=== PATIENT | female | born 1935 | race Caucasian/White ===

== ENCOUNTER 2020-03-23 14:14 | Outpatient (CLI) | payer MEDICARE, BC, SELFPAY ==
--- NOTE | 2020-03-23 15:11 | ECG_ITS ---
Measurements Intervals [place] Rate: 66 P: 48 OK: 155 QRS: -48 QRSD: 130 T: 29 QT: 405 QTc: 425 Interpretive Statements SINUS RHYTHM RIGHT BUNDLE BRANCH BLOCK LEFT ANTERIOR FASCICULAR BLOCK ABNORMAL ECG Electronically Signed On 03-23-2020 15:51:54 CDT by Rhett Schuler D.O.
[2020-03-23 15:44] LABS: Basophils Absolute Auto 0.1 K/mm3 (0.0-0.1); Basophils Percent Auto 0.7 % (0.2-1.2); Eosinophils Absolute Auto 0.1 K/mm3 (0-0.3); Eosinophils Percent Auto 1.3 % (0-4.4); Hematocrit 38.7 % (37.0-47.0); Hemoglobin 13.1 g/dL (12.0-15.0); Immature Granulocyte Absolute 0.02 K/mm3 (0.00-0.031); Immature Granulocyte Percent A 0.2 % (0-0.5); Lymphocytes Absolute Auto 2.23 K/mm3 (0.9-3.2); Lymphocytes Percent Auto 25.6 % (18.3-44.2); Mean Corpuscular HGB Conc 33.9 g/dl (32-36); Mean Corpuscular Hemoglobin 29.2 pg (26-34); Mean Corpuscular Volume 86.2 fl (80-100); Mean Platelet Volume 9.7 fl (7.4-10.4); Monocytes Absolute Auto 0.4 K/mm3 (0.1-0.6); Monocytes Percent Auto 4.7 % (2.6-8.5); Neutrophils Absolute Auto 5.9 K/mm3 (1.3-6.7); Neutrophils Percent Auto 67.5 % (45.5-73.1); Platelet Count Result 226 k/mm3 (150-375); Red Blood Count 4.49 M/mm3 (4.2-5.4); White Blood Count 8.7 K/mm3 (4.5-10.0)
[2020-03-23 15:56] LABS: Blood Urea Nitrogen 18 mg/dL (7-17); Calcium 9.3 mg/dL (8.4-10.2); Carbon Dioxide 26 mmol/L (22-30); Chloride 103 mmol/L (98-107); Estimated Glomerular Filt Rate > 60; Glucose 134 mg/dL (65-105); Potassium 4.1 mmol/L (3.4-5.0); Sodium 136 mmol/L (137-145)
== END 2020-03-23 14:15 | disposition home or self-care (01) ==
PROVIDERS: Anesthesiology; PCP Family Medicine; Visit Provider Orthopaedic Surgery
DX: M17.12 Unilateral primary osteoarthritis, left knee (principal); E11.9 Type 2 diabetes mellitus without complications; I45.10 Unspecified right bundle-branch block; I44.4 Left anterior fascicular block
CPT/HCPCS: 36415; 80048; 85025; 87081; 93005

== ENCOUNTER 2020-04-05 07:13 | Outpatient (CLI) | payer MEDICARE, BC, SELFPAY ==
--- NOTE | ~2020-04-05 | NM_ITS ---
EXAMINATION: NM carmelo stress w perfusion DATE: 04/05/2020 10:42 INDICATION: Dyspnea. TECHNIQUE: Rest images were obtained following intravenous administration of 10.7 mCi Tc99m tetrofosm in (Myoview). The patient was infused intravenously with Lexiscan (Regadenoson). Then, 31.77 mCi Tc99 m tetrofosmin (Myoview) was administered intravenously, and stress images were obtained. Data was rec onstructed into short axis and horizontal and vertical long axis SPECT images. Gated SPECT images wer e also obtained. COMPARISON: None. FINDINGS: There is a mild to moderate largely reversible perfusion defect involving the apical anteri or, apical lateral, mid anterolateral and mid inferolateral segments consistent with ischemia. Small mild nonreversible infarct at the mid inferolateral segment. There is normal left ventricular chamber size, wall motion and ejection fraction. Left ventricular ejection fraction measures >70%. IMPRESSION: 1. Small mild infarct in the mid inferolateral segment with larger region of reversible ischemia pred ominantly more anterior in the circumflex coronary artery vascular distribution. 2. Left ventricular ejection fraction measuring >70%. Reviewed, dictated and finalized at location A. IMPRESSION: 1. Small mild infarct in the mid inferolateral segment with larger region of re versible ischemia predominantly more anterior in the circumflex coronary artery vascular distribution. 2. Left ventricular ejection fraction measuring >70%.
--- NOTE | 2020-04-05 07:17 | ECHO_ITS ---
Patient Info Name: Sunitha Dooley Age: 84 years : 1935 Gender: Female Ht: 59 in Wt: 191 lbs BSA: 1.95 m2 HR: 71 bpm BP: 165 / 70 mmHg Technical Quality: Good Exam Date: 04/05/2020 7:40 AM Exam Location: [facility] Patient Status: Outpatient Admit Date: 04/05/2020 Staff Ordering Physician: Rhett Schuler DO Ventilating Equipment Installer: Jose Limon RDCS, RT Attending Provider: Rhett Schuler DO Referring Physician: Ganga REARDON; Exam Type: CA echo doppler color flow Study Info Indications R01.1 - Cardiac murmur, unspecified Complete two-dimensional, color flow and Doppler transthoracic echocardiogram is performed. Summary 1. Left ventricular chamber dimension is normal. 2. Left ventricular systolic function is normal, estimated at 65-70%. 3. There is moderately increased left ventricular wall thickness. 4. The left ventricular diastolic function is grade I diastolic dysfunction. 5. E/e' 15 is elevated. 6. Global longitudinal strain is mildly abnormal at -16.2%. 7. Left atrial chamber dimension is mildly enlarged. 8. There is moderate aortic valve sclerosis. 9. There is mild to moderate aortic valve stenosis with a peak velocity of 222 cm/s, mean gradient of 11 mmHg, and aortic valve area of 1.5 cm2. 10. There is mild aortic valve regurgitation. 11. The mitral valve has mildly calcified annulus. 12. There is trace mitral valve regurgitation. Left Ventricle E/e' 15 is elevated. Global longitudinal strain is mildly abnormal at -16.2%. Left ventricular chamber dimension is normal. Left ventricular systolic function is normal, estimated at 65-70%. There is moderately increased left ventricular wall thickness. The left ventricular diastolic function is grade I diastolic dysfunction. Right Ventricle Right ventricular chamber dimension is normal. Right ventricular systolic function is normal. Left Atria Left atrial chamber dimension is mildly enlarged. Right Atria Right atrial chamber dimension is normal. Aortic Valve The aortic valve is trileaflet. There is moderate aortic valve sclerosis. There is mild to moderate aortic valve stenosis with a peak velocity of 222 cm/s, mean gradient of 11 mmHg, and aortic valve area of 1.5 cm2. There is mild aortic valve regurgitation. Pulmonic Valve There is no pulmonic regurgitation. Mitral Valve The mitral valve has mildly calcified annulus. There is no mitral valve stenosis. There is trace mitral valve regurgitation. Tricuspid Valve There is no tricuspid valve regurgitation. Pericardium/Pleural There is no pericardial effusion. Inferior Vena Cava Normal inferior vena cava with >50% collapse upon inspiration consistent with normal right atrial pressure, 5 mmHg. Aorta The aortic root size at the sinus of Valsalva is normal. Left Ventricular Outflow Tract Name Value Normal LVOT 2D LVOT Diameter 2.0 cm LVOT Doppler LVOT Peak Gradient 4 mmHg LVOT Mean Gradient 2 mmHg LVOT VTI 24 cm LVOT VTI/AV VTI Ratio 0.5 LVO
--- NOTE | 2020-04-05 07:17 | EST_ITS ---
Patient Info Name: Sunitha Dooley Age: 84 years : 1935 Gender: Female Ht: 59 in Wt: 180 lbs BSA: 1.89 m2 Exam Date: 04/05/2020 8:44 AM Exam Location: [facility] Stress Patient Status: Outpatient Admit Date: 04/05/2020 Staff Ordering Physician: Rhett Schuler DO Attending Provider: Rhett Schuler DO Exercise Technologist: Jose Limon RDCS, RT Exercise Physician: Rhett Schuler DO Exam Type: CA stress carmeol w NM Study Info A regadenoson stress test was performed. Summary 1. 1. Negative lexiscan stress test for ischemic ST changes by ECG criteria. 2. 2. Baseline hypertension. 3. 3. Nuclear scan to follow and will be reported separately. Please correlate with it. 4. 4. Patient informed of the above results. Protocol: Lexiscan Stress ECG Details Stage: REST Duration (min): 3 min : 41 sec HR (bpm): 69 SBP (mmHg): 167 DBP (mmHg): 54 Stage: REST Duration (min): 4 min : 43 sec HR (bpm): 69 SBP (mmHg): 167 DBP (mmHg): 54 Stage: STAGE 1 Duration (min): 1 min : 0 sec HR (bpm): 79 SBP (mmHg): 160 DBP (mmHg): 48 Stage: RECOVERY Duration (min): 1 min : 0 sec HR (bpm): 82 SBP (mmHg): 160 DBP (mmHg): 48 Stage: RECOVERY Duration (min): 2 min : 0 sec HR (bpm): 83 SBP (mmHg): 160 DBP (mmHg): 48 Stage: RECOVERY Duration (min): 3 min : 0 sec HR (bpm): --- SBP (mmHg): 160 DBP (mmHg): 48 Stage: RECOVERY Duration (min): 4 min : 0 sec HR (bpm): --- SBP (mmHg): 160 DBP (mmHg): 48 Stage: RECOVERY Duration (min): 4 min : 9 sec HR (bpm): --- SBP (mmHg): 160 DBP (mmHg): 48 Rest HR: 69 bpm Peak HR: 85 bpm Rest Sys BP: 167 mmHg Peak Sys BP: 160 mmHg Max Pred HR: 137 bpm % Max Pred HR: 62 % Target HR: 116 bpm Max RPP: 13,600 bpm*mmHg Termination Reason: Completed protocol Cardiac Symptoms: Stomach pain Total Time: 1 min : 0 sec Rest Pettit BP: 54 mmHg Peak Pettit BP: 48 mmHg Total Dose: 0.4 mg Resting ECG Sinus rhythm, RBBB, LAFB. Stress ECG No ST changes. Arrhythmias None. Report Signatures
== END 2020-04-05 07:14 | disposition home or self-care (01) ==
PROVIDERS: PCP Family Medicine; Visit Provider Internal Medicine Cardiovascular Disease
DX: R01.1 Cardiac murmur, unspecified (principal); I08.3 Combined rheumatic disorders of mitral, aortic and tricuspid valves; R06.00 Dyspnea, unspecified
CPT/HCPCS: 78452; 93017; 93306; A9502; J2785

== ENCOUNTER 2020-04-28 02:58 | Outpatient (CLI) | payer MEDICARE, BC, SELFPAY ==
[2020-04-29 13:48] LABS: SARS-CoV-2 RNA PCR Negative
== END 2020-04-28 02:59 | disposition home or self-care (01) ==
LOC: ANHCOVIDDT 02:59
PROVIDERS: PCP Family Medicine; Visit Provider Specialist
DX: Z01.812 Encounter for preprocedural laboratory examination (principal); Z11.59 Encounter for screening for other viral diseases
CPT/HCPCS: 87635; C9803; U0003

== ENCOUNTER 2020-05-01 05:22 | Day surgery (SDC) | payer MEDICARE, BC, SELFPAY ==
[2020-05-01] VITALS (18 sets, daily range): BP systolic 116–167; BP diastolic 53–98; PULSE 61–72; RESP 12–21; TEMP 36.1–36.5; O2SAT 94–99; BMI 37.8
--- NOTE | 2020-05-01 08:55 | SUR.PREOP ---
ARRIVES TO GAS APPLIANCE SERVICER 4 VIA WC FROM OP REGISTRATION W/ DAUGHTER SANJANA AT SIDE FOR SCHEDULED LHC W/ DR. BARRY. DENIES CP OR SOB ON ARRIVAL. STATES NEEDS CARDIAC CATH COMPLETED TO EVENTUALLY GET L. KNEE SURGERY. ORIENTED TO ROOM, PLAN OF CARE, PROCEDURE. QUESTIONS ANSWERED. VOICED UNDERSTANDING. IV STARTED, LABS SENT, VS OBTAINED, CONSENT SIGNED, SKIN PREPPED. WILL CONTINUE TO MONITOR.
[2020-05-01] MEDS: SODIUM CHLORIDE 0.9% IV 500 ML 100 ML IV CONT (09:30)
[2020-05-01 09:37] LABS: Basophils Absolute Auto 0.1 K/mm3 (0.0-0.1); Basophils Percent Auto 0.7 % (0.2-1.2); Eosinophils Absolute Auto 0.1 K/mm3 (0-0.3); Eosinophils Percent Auto 1.7 % (0-4.4); Hematocrit 38.1 % (37.0-47.0); Hemoglobin 12.8 g/dL (12.0-15.0); Immature Granulocyte Absolute 0.03 K/mm3 (0.00-0.031); Immature Granulocyte Percent A 0.4 % (0-0.5); Lymphocytes Absolute Auto 1.89 K/mm3 (0.9-3.2); Lymphocytes Percent Auto 22.7 % (18.3-44.2); Mean Corpuscular HGB Conc 33.6 g/dl (32-36); Mean Corpuscular Hemoglobin 29.5 pg (26-34); Mean Corpuscular Volume 87.8 fl (80-100); Mean Platelet Volume 10.1 fl (7.4-10.4); Monocytes Absolute Auto 0.5 K/mm3 (0.1-0.6); Monocytes Percent Auto 5.6 % (2.6-8.5); Neutrophils Absolute Auto 5.7 K/mm3 (1.3-6.7); Neutrophils Percent Auto 68.9 % (45.5-73.1); Platelet Count Result 226 k/mm3 (150-375); Red Blood Count 4.34 M/mm3 (4.2-5.4); Red Cell Distribution Width 12.1 % (11.5-14.5); White Blood Count 8.3 K/mm3 (4.5-10.0)
[2020-05-01 09:46] LABS: INR 0.9; Prothrombin Time 12.3 Seconds (11.1-14.7)
[2020-05-01 09:48] LABS: Anion Gap 6 mmol/L (8-16); Blood Urea Nitrogen 24 mg/dL (7-17); Carbon Dioxide 28 mmol/L (22-30); Chloride 104 mmol/L (98-107); Cholesterol 177 mg/dL (0-200); Estimated Glomerular Filt Rate > 60; Glucose 77 mg/dL (65-105); HDL Direct 62 mg/dL; Potassium 4.1 mmol/L (3.4-5.0); Sodium 138 mmol/L (137-145); Triglycerides 74 mg/dL (<150)
[2020-05-01 09:59] LABS: LDL Cholesterol Direct 97 mg/dL
--- NOTE | 2020-05-01 10:49 | WPDMODSED ---
Moderate Sedation Note-Pt Data Patient Data Diagnosis: Degenerative joint disease anticipating knee replacement abnormal stress test mild aortic valve stenosis Present Complaint: no complaints Procedure to be performed/Plan: left heart catheterization Allergies Allergy/AdvReac Type Severity Reaction Status Date / Time No Known Allergies Allergy Verified 04/14/20 15:06 Home Medications Medication Instructions Recorded Confirmed Type enalapril maleate 20 mg tablet 20 mg PO BID #180 tablet 10/15/19 04/14/20 Rx metformin 1,000 mg tablet 500 mg PO BID 10/15/19 04/14/20 History pen needle, diabetic 32 gauge x #100 each 01/06/20 04/14/20 Rx meclizine 25 mg tablet 25 mg PO Q8H PRN #90 tablet 01/13/20 04/14/20 Rx insulin glargine [Lantus Solostar 14 - 18 unit SUBCUT HS 03/23/20 04/14/20 History U-100 Insulin] multivitamin with minerals 1 tablet PO DAILY 03/23/20 04/14/20 History [Hair,Skin and Nails] mupirocin 2 % topical ointment 1 applic TOPICAL TID #15 gm 03/28/20 04/14/20 Rx sulfamethoxazole 800 1 tablet PO BID #10 tablet 03/28/20 04/14/20 Rx mg-trimethoprim 160 mg tablet amlodipine 10 mg tablet 10 mg PO DAILY #30 tablet 03/30/20 04/14/20 Rx aspirin 81 mg tablet,delayed 81 mg PO DAILY 04/14/20 04/14/20 History release meloxicam 15 mg tablet 15 mg PO DAILY #90 tablet 04/21/20 04/21/20 Rx temazepam 15 mg capsule 30 mg PO .qhs #60 cap 04/21/20 04/21/20 Rx Current Medications: Active Medications Sodium Chloride (Normal Saline Iv) 500 mls @ 100 mls/hr IV CONT .Q5H RICHARD Sedation/Anesthesia: No previous sedation/anesthesia problems (including family history). [facility] Social History Social History (Updated 03/28/20 @ 14:24 by Morena Hinkle) Smoking packs per day: 1 Smoking cigarettes per day: 20.0 Years smoked: 10 Smoking pack-years: 10.00 Smoking status: Former smoker Tobacco type: cigarettes Second hand tobacco smoke exposure: Yes Smoking end date: 09/22/79 Additional smoking assessment comments: DENIES ANY FORM OF TOBACCO USE Alcohol intake: never Substance use: never Substance use type: does not use Gender identity (if verbalized by the patient): Female Spiritual care concerns: No Mod Sed Physical Exam Physical Exam Pre Procedural Exam: Normal: Neck, Throat, Airway, Lungs, Heart Size, Heart Rate, Heart Rhythm and Neuro Exam and Variation: Appearance ( obese elderly white female) Hours since solid foods: 12 Hours since liquid intake: 12 Internal Medicine - PN: Obj Da Meds/Results Medications: Active Medications Generic Name Dose Route Start Last Admin Trade Name Freq PRN Reason Stop Dose Admin Sodium Chloride 500 mls @ 100 mls/hr 05/01/20 08:30 Normal Saline Iv IV CONT .Q5H RICHARD Labs CBC & Chem 7: 05/01/20 09:19 05/01/20 09:19 Labs: Laboratory Results - last 24 hr 05/01/20 05/01/20 05/01/20 09:19 09:19 09:19 WBC 8.3 RBC 4.34 Hgb 12.8 Hct 38.1 MCV 87.8 MCH 29.5 MCHC 33.6 RDW 12.1 Plt Count 226 MPV 10.1 Immature Gran % (Auto) 0.4 Neut % (Auto) 68.9 Lymph % (Auto) 22.7 [place] % (Auto) 5.6 Eos % (Auto) 1.7 Baso % (Auto) 0.7 Lymph # (Auto) 1.89 [place] # (Auto) 0.5 Eos # (Auto) 0.1 Baso # (Auto) 0.1 Abs Immat Gran (auto) 0.03 Absolute Neuts (auto) 5.7 Absolute Nucleated RBC 0.0 Nucleated RBC % 0.0 PT 12.3 INR 0.9 Sodium 138 Potassium 4.1 Chloride 104 Carbon Dioxide 28 Anion Gap 6 L BUN 24 H Creatinine 0.70 Estim Creat Clear Calc Not Reportable Estimated GFR > 60 Glucose 77 Calcium 9.0 Triglycerides Cholesterol LDL Cholesterol Direct HDL Direct 05/01/20 09:19 WBC RBC Hgb Hct MCV MCH MCHC RDW Plt Count MPV Immature Gran % (Auto) Neut % (Auto) Lymph % (Auto) [place] % (Auto) Eos % (Auto) Baso % (Auto) Lymph # (Auto) [place] # (Au
--- NOTE | 2020-05-01 11:14 | WPDCARDPROC ---
Cardiac Cath Procedure Note Date of procedure:: 05/01/20 Performing physician:: Gagandeep Duarte MD Indication:: Preop evaluation prior to noncardiac surgery degenerative joint disease Brief clinical history:: 84-year-old woman who is undergoing evaluation to assess her risk prior to knee replacement. Nuclear stress testing was reportedly abnormal prompting angiography to be recommended. The chart also indicates that she has mild aortic valve stenosis. Procedure Procedure performed:: Left heart catheterization with left ventriculography and coronary angiography. Sedation/Medication given:: Fentanyl 50 mg Versed 2 mg case start time 10:57 a.m. case end time 11:09 a.m. sedation provided by Pamela Hooker RN, trained observer Access site:: right femoral artery Estimated blood loss:: 15-20 cc Procedure note:: patient was brought to the cardiac catheterization lab in the postabsorptive state where the right femoral triangle was prepared in the usual fashion. Anesthesia was given with 1% lidocaine infiltrated locally. Using the modified Seldinger technique a 5 [place] sheath was placed into the femoral artery. After this left heart catheterization was carried out. A 5 [place] angled pigtail catheter was used to measure left-sided central to hemodynamics, pullback pressure across the aortic valve into inject the left ventriculogram in the are AO projection. After this the the pigtail catheter was withdrawn. Next a 5 [place] FL4 catheter was used to engage inject the left coronary artery in multiple projections. This was then withdrawn and then a 5 [place] JR4 catheter was used to engage inject the right coronary artery and a orthogonal projections. Following this the case was terminated and angiogram was done of the femoral artery through the sheath. It was then to determine the to remove the sheath with direct manual compression she taken to the holding area for sheath removal with no sign of any complication of this procedure and no evidence of a groin hematoma. Findings:: Hemodynamics: Central aortic pressure was 132 over 38 left ventricle 1 40/0 end-diastolic pressure of 10. There is minimal if any transvalvular aortic valve gradient about 8 mmHg as detailed above. the left ventricle is normal in size appears to be somewhat hypertrophied. The LV is hyperdynamic with near obliteration of the cavity in end systole. Ejection fraction is 80% or higher The left main coronary artery is widely patent the left anterior descending is a large caliber vessel extending down to and around the apex. The proximal segment of the LAD is heavily calcified but it is nicely patent the vessel proximally has no more than 20% Luminal stenosis. The circumflex is a moderate caliber vessel which appears to be codominant. The circumflex has minimal luminal irregularities but no flow-limiting lesions are seen. Right coronary artery is moderate to large caliber and also codominant. The right coronary artery has minimal ostial plaquing about 20-30% stenosis at most there is no flow-limiting disease in the RCA. Conclusion:: 1. Minimal plaquing in the proximal LAD and proximal RCA with no angiographically significant coronary disease as detailed above 2. hyperdynamic left ventricular systolic function Gagandeep Duarte MD [facility]
--- NOTE | 2020-05-01 17:35 | SUR.PHASEII ---
DISCHARGED HOME, OUT VIA W/ ALL PERSONAL BELONGINGS AND DISCHARGE PACKET, TO DAUGHTER'S WAITING CAR. VOICES NO C/O. NO DISTRESS NOTED. R. PEDAL PULSE STRONG. NO CHANGE IN R. GROIN SITE.
== END 2020-05-01 17:35 | disposition home or self-care (01) ==
PROVIDERS: PCP Family Medicine; Visit Provider Specialist
PROC: 4A023N7 Measurement of Cardiac Sampling and Pressure, Left Heart, Percutaneous Approach (ICD-10-PCS; CPT 93452; principal; 2020-05-01 10:00)
DX: Z01.810 Encounter for preprocedural cardiovascular examination (principal); I25.10 Atherosclerotic heart disease of native coronary artery without angina pectoris; R94.39 Abnormal result of other cardiovascular function study; M17.10 Unilateral primary osteoarthritis, unspecified knee; I35.0 Nonrheumatic aortic (valve) stenosis; E11.9 Type 2 diabetes mellitus without complications; I11.0 Hypertensive heart disease with heart failure; I50.30 Unspecified diastolic (congestive) heart failure; Z79.4 Long term (current) use of insulin; Z87.891 Personal history of nicotine dependence
CPT/HCPCS: 36415; 80048; 80061; 85025; 85610; 93458; C1887; C1894; J1644; J2250; J3010; J7040

== ENCOUNTER 2020-07-18 12:41 | Outpatient (CLI) | payer MEDICARE, BC, SELFPAY ==
[2020-07-18 13:24] LABS: Hematocrit 39.3 % (37.0-47.0)
[2020-07-18 13:36] LABS: Albumin Level 4.1 g/dL (3.5-5.1); Estimated Glomerular Filt Rate > 60; Glucose 202 mg/dL (65-105)
[2020-07-18 13:37] LABS: Hemoglobin A1C 6.5 % (<5.7)
== END 2020-07-18 12:42 | disposition home or self-care (01) ==
PROVIDERS: PCP Family Medicine; Visit Provider Orthopaedic Surgery
DX: M17.12 Unilateral primary osteoarthritis, left knee (principal); I10 Essential (primary) hypertension; E11.9 Type 2 diabetes mellitus without complications; E78.5 Hyperlipidemia, unspecified; I35.0 Nonrheumatic aortic (valve) stenosis; Z01.818 Encounter for other preprocedural examination
CPT/HCPCS: 36415; 82040; 82565; 82947; 83036; 85014; 85018

== ENCOUNTER 2020-07-24 14:12 | Outpatient (CLI) | payer MEDICARE, BC, SELFPAY ==
--- NOTE | ~2020-07-24 | US_ITS ---
EXAMINATION: US venous doppler [facility] DATE: 07/24/2020 14:44 INDICATION: Left lower limb swelling TECHNIQUE: Whitehead scale images without and with compression and Doppler images of the left lower extrem ity veins were obtained. COMPARISON: None FINDINGS: The left common femoral vein, profunda femoral vein, femoral vein, popliteal vein, peroneal trunk, posterior tibial veins, and greater saphenous vein are patent. IMPRESSION: 1. Patent left lower extremity veins. No evidence of deep venous thrombosis. Reviewed, dictated and finalized at location A. [employer]CH[employer]IC
== END 2020-07-24 14:13 | disposition home or self-care (01) ==
PROVIDERS: PCP Family Medicine; Visit Provider Family Medicine
DX: R60.0 Localized edema (principal)
CPT/HCPCS: 93971

== ENCOUNTER 2020-07-28 13:45 | Outpatient (CLI) | payer MEDICARE, BC, SELFPAY ==
[2020-07-28 15:27] LABS: Basophils Absolute Auto 0.1 K/mm3 (0.0-0.1); Basophils Percent Auto 0.6 % (0.2-1.2); Eosinophils Absolute Auto 0.2 K/mm3 (0-0.3); Eosinophils Percent Auto 1.8 % (0-4.4); Hemoglobin 13.4 g/dL (12.0-15.0); Immature Granulocyte Absolute 0.03 K/mm3 (0.00-0.031); Immature Granulocyte Percent A 0.3 % (0-0.5); Lymphocytes Absolute Auto 2.53 K/mm3 (0.9-3.2); Lymphocytes Percent Auto 26.4 % (18.3-44.2); Mean Corpuscular HGB Conc 33.5 g/dl (32-36); Mean Corpuscular Hemoglobin 29.7 pg (26-34); Mean Corpuscular Volume 88.7 fl (80-100); Mean Platelet Volume 9.8 fl (7.4-10.4); Monocytes Absolute Auto 0.5 K/mm3 (0.1-0.6); Monocytes Percent Auto 5.4 % (2.6-8.5); Neutrophils Absolute Auto 6.3 K/mm3 (1.3-6.7); Neutrophils Percent Auto 65.5 % (45.5-73.1); Platelet Count Result 270 k/mm3 (150-375); Red Blood Count 4.51 M/mm3 (4.2-5.4); White Blood Count 9.6 K/mm3 (4.5-10.0)
[2020-07-28 15:54] LABS: Urine Cotinine NEGATIVE
== END 2020-07-28 13:46 | disposition home or self-care (01) ==
LOC: ANHSURGERY 13:51
PROVIDERS: PCP Family Medicine; Visit Provider Orthopaedic Surgery
DX: M17.12 Unilateral primary osteoarthritis, left knee (principal); Z01.818 Encounter for other preprocedural examination
CPT/HCPCS: 80307; 85025; 87081

== ENCOUNTER → 2020-08-25 13:21 | Outpatient (CLI) | payer MEDICARE, SELFPAY ==
--- NOTE | ~2020-08-25 | MM_ITS ---
EXAMINATION: MM screening en BI w ludwig HISTORY: Screening mammogram TECHNIQUE: Craniocaudal and mediolateral oblique 3-D tomosynthesis images were obtained and synthetic 2-D images were generated. CAD analysis was submitted and interpreted. COMPARISON: 06/18/2019, 05/07/2018, 04/09/2017 bilateral digital screening mammogram examinations BREAST PARENCHYMAL COMPOSITION: There are scattered areas of fibroglandular density. FINDINGS: There is stable There is a stable circumscribed intramammary lymph node on the left, unchanged since 06/18/2019 as wel l as 04/09/2017. Postoperative change including volume loss, surgical clips and scarring of the right breast from previous partial mastectomy for breast malignancy in 2000 reportedly. There is no evidenc e of suspicious mass, calcification, or architectural distortion to suggest malignancy in either [address]. There has been no suspicious interval change. IMPRESSION: 1. No mammographic evidence of malignancy. 2. Recommend routine screening mammography in one year. BI-RADS Category 2: Benign finding(s). Reviewed, dictated and finalized at location A. [employer]
== END ==
PROVIDERS: PCP Family Medicine; Visit Provider Family Medicine
DX: Z12.31 Encounter for screening mammogram for malignant neoplasm of breast (principal)
CPT/HCPCS: 77063; 77067

== ENCOUNTER 2020-12-08 11:35 | Outpatient (CLI) | payer MEDICARE, BC, SELFPAY ==
[2020-12-08 13:29] LABS: Basophils Absolute Auto 0.1 K/mm3 (0.0-0.1); Basophils Percent Auto 0.6 % (0.2-1.2); Eosinophils Absolute Auto 0.1 K/mm3 (0-0.3); Eosinophils Percent Auto 1.1 % (0-4.4); Hematocrit 42.5 % (37.0-47.0); Hemoglobin 13.9 g/dL (12.0-15.0); Immature Granulocyte Absolute 0.04 K/mm3 (0.00-0.031); Immature Granulocyte Percent A 0.5 % (0-0.5); Lymphocytes Absolute Auto 1.99 K/mm3 (0.9-3.2); Lymphocytes Percent Auto 24.5 % (18.3-44.2); Mean Corpuscular HGB Conc 32.7 g/dl (32-36); Mean Corpuscular Hemoglobin 28.5 pg (26-34); Mean Corpuscular Volume 87.1 fl (80-100); Mean Platelet Volume 9.3 fl (7.4-10.4); Monocytes Absolute Auto 0.5 K/mm3 (0.1-0.6); Monocytes Percent Auto 5.9 % (2.6-8.5); Neutrophils Absolute Auto 5.5 K/mm3 (1.3-6.7); Neutrophils Percent Auto 67.4 % (45.5-73.1); Platelet Count Result 250 k/mm3 (150-375); Red Blood Count 4.88 M/mm3 (4.2-5.4); Red Cell Distribution Width 12.6 % (11.5-14.5); White Blood Count 8.1 K/mm3 (4.5-10.0)
[2020-12-08 13:43] LABS: Albumin Level 4.3 g/dL (3.5-5.1)
[2020-12-08 13:47] LABS: Anion Gap 6 mmol/L (8-16); Blood Urea Nitrogen 19 mg/dL (7-17); Calcium 9.4 mg/dL (8.4-10.2); Carbon Dioxide 32 mmol/L (22-30); Chloride 103 mmol/L (98-107); Estimated Glomerular Filt Rate > 60; Glucose 111 mg/dL (65-105); Sodium 141 mmol/L (137-145)
[2020-12-08 13:51] LABS: Urine Cotinine NEGATIVE
[2020-12-08 13:52] LABS: Hemoglobin A1C 6.3 % (<5.7)
== END 2020-12-08 11:36 | disposition home or self-care (01) ==
LOC: ANHSURGERY 11:43
PROVIDERS: Anesthesiology; PCP Family Medicine; Visit Provider Orthopaedic Surgery
DX: M17.12 Unilateral primary osteoarthritis, left knee (principal); E11.40 Type 2 diabetes mellitus with diabetic neuropathy, unspecified; Z01.818 Encounter for other preprocedural examination
CPT/HCPCS: 36415; 80048; 80307; 82040; 83036; 85025; 86850; 86900; 86901; 87081

== ENCOUNTER → 2020-12-16 01:38 | Outpatient (CLI) | payer MEDICARE, BC, SELFPAY ==
[2020-12-16 20:22] LABS: SARS-CoV-2 RNA PCR Negative
== END ==
PROVIDERS: PCP Family Medicine; Visit Provider Orthopaedic Surgery
DX: Z01.812 Encounter for preprocedural laboratory examination (principal); Z20.822 Contact with and (suspected) exposure to COVID-19
CPT/HCPCS: C9803; U0003; U0005

== ENCOUNTER 2020-12-19 10:49 | Inpatient (IN) | payer MEDICARE, BC, SELFPAY ==
[2020-03-23 14:27] VITALS: BMI 37.0
[2020-03-23 15:08] VITALS: BP 168/61; PULSE 77; RESP 18; TEMP 36.9; O2SAT 97
[2020-07-28 14:33] VITALS: BP 156/64; PULSE 78; RESP 20; TEMP 36.9; O2SAT 98; BMI 36.3
[2020-12-08 12:18] VITALS: BMI 35.1
[2020-12-08 12:31] VITALS: BP 199/80; PULSE 80; RESP 18; TEMP 36.4; O2SAT 97
--- NOTE | 2020-12-18 10:32 | WPDANESEPPF ---
Anes - Initial Pre Proc Eval Procedure: Operation Date: 12/19/20 07:30 Proposed Procedures p Left Total Knee Arthroplasty - Nathanael Abel MD Date/Time: 12/18/20 10:32 Surgeon: Nathanael Abel MD Pre Op Diagnosis: Primary OA left knee Patient Data Age: 85 Gender: F Height: 1.51 m Weight: 80.2 kg Last Vital Signs Temp 36.4 C 12/08/20 12:31 Pulse 80 12/08/20 12:31 Resp 18 12/08/20 12:31 BP 199/80 H 12/08/20 12:31 Pulse Ox 97 12/08/20 12:31 Allergies Allergy/AdvReac Type Severity Reaction Status Date / Time adhesive tape AdvReac Mild Rash Verified 12/19/20 06:28 Home Medications Medication Instructions Recorded Confirmed Type metformin 1,000 mg tablet 500 mg PO HS 10/15/19 12/19/20 History pen needle, diabetic 32 gauge x #100 each 01/06/20 11/20/20 Rx meclizine 25 mg tablet 25 mg PO Q8H PRN #90 tablet 01/13/20 12/19/20 Rx multivitamin with minerals 1 tablet PO DAILY 03/23/20 12/19/20 History [Hair,Skin and Nails] pravastatin 10 mg tablet 10 mg PO DAILY #30 tablet 05/08/20 12/19/20 Rx meloxicam 15 mg tablet 15 mg PO DAILY #90 tablet 06/16/20 12/19/20 Rx temazepam [Restoril] 15 mg PO .qhs 07/28/20 12/19/20 History insulin glargine 100 unit/mL (3 14 - 18 unit SUBCUT HS #15 ml 10/23/20 12/19/20 Rx mL) subcutaneous pen enalapril maleate 20 mg tablet 20 mg PO BID #180 tablet 10/29/20 12/19/20 Rx ECG: sr, rbbb, lafb Other Studies: 05/01/[address] Duarte: Prox LAD 20% and RCA ostial 20-30% stenosis. 04/05/20 Lexiscan myoview: Abnormal with small inferolateral infarct and larger reversible ischemia in LAD and LCx distribution. 04/05/20 Echo: EF 65-70%, mod LVH, grade I diastolic dysfunction (E/e' 15), mild LAE, mild-mod (MANE 1.5 cm2), mild AI, mild MAC, trace MR. 03/23/20 EKG: Sinus rhythm, RBBB, LAFB. Per Dr Schuler note 11/20/20: May proceed to noncardiac surgery which is left knee surgery without further cardiac workup. Patient hx anesthesia problems: none Family hx anesthesia problems: none PMFSH Past Medical History Medical History (Updated 12/18/20 @ 10:34 by Jori Roque MD) Aortic stenosis Arthritis Benign essential HTN Breast CA CAD (coronary artery disease) DM neuropathy, type II diabetes mellitus History of breast cancer Mixed hyperlipidemia OAB (overactive bladder) Obesity Primary osteoarthritis of left knee RBBB (right bundle branch block with left anterior fascicular block) Surgical History Surgical History History of arthroplasty of right shoulder (~01/08/20) History of bladder surgery Family History Family History Other Diabetes mellitus Family history of arthritis Family history of congenital heart disease Family history of malignant neoplasm Family history of type 2 diabetes mellitus Hypertension Social History Social History (Updated 07/24/20 @ 13:26 by Nikkie Beth) Social History: Smoking packs per day: 1 Smoking cigarettes per day: 20.0 Years smoked: 10 Smoking pack-years: 10.00 Smoking status: Former smoker Tobacco type: cigarettes 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) Smoking end date: 03/22/80 Additional smoking assessment comments: DENIES ANY FORM OF TOBACCO USE Alcohol intake: former Alcohol use details: DRANK SOCIALLY IN PAST Substance use: never Substance use type: does not use Living arrangements: with family Additional living arrangements comments: SON LIVES WITH PATIENT Gender identity (if verbalized by the patient): Female Spiritual care concerns: No Anes - Eval Final PreProcedure Day of Procedure 12/18/20 10:32 Patient weight: obese Heart: regular rate and rhythm Lungs: clear to auscultation and normal air movement Airway: Mallampati scale class II Neurological: alert and oriented Last oral
[2020-12-19] VITALS (14 sets, daily range): BP systolic 112–200; BP diastolic 32–83; PULSE 74–80; RESP 12–20; TEMP 36.2–36.6; O2SAT 92–100
--- NOTE | ~2020-12-19 | XR_ITS ---
EXAMINATION: XR knee LT 2V DATE: 12/19/2020 09:47 INDICATION: Postoperative evaluation following left total knee arthroplasty. TECHNIQUE: Anteroposterior and lateral views of the left knee were obtained. COMPARISON: None. FINDINGS: Left total knee arthroplasty with patellar resurfacing and with lucent patellar and tibial components which appears well seated and in near anatomic alignment. No fractures identified. Expected postope rative subcutaneous and intra-articular gas. IMPRESSION: 1. Left total knee arthroplasty, negative for postoperative purposes. Reviewed, dictated and finalized at location A.
[2020-12-19] MEDS: ACETAMINOPHEN 500 MG TABLET 1000 MG PO (06:41)
[2020-12-19] MEDS: LACTATED RINGERS 1,000 ML 30 ML IV CONT ×2 (06:45→09:36)
--- NOTE | 2020-12-19 06:53 | WPDHPUPDATE1 ---
History and Physical Update Update Date/Time: 12/19/20 06:53 History and Physical has been reviewed, including an updated exam of the patient. There are NO changes in the patient's condition. Risks, benefits, and alternatives have been discussed and questions answered. Patient agrees to proceed with procedure.
[2020-12-19 06:55] LABS: Glucose Point of Care 156 (65-105)
[2020-12-19] MEDS: TRANEXAMIC ACID 1,000MG/ISO100 1,000 MG/100 ML BAG 200 MG IVPB (06:57)
--- NOTE | 2020-12-19 06:57 | WPDANESPNB ---
Anes - Peripheral Nerve Block Date/Time: 12/19/20 06:57 I have discussed with the patient/family/POA the placement of a peripheral nerve block for post-operative pain management, including associated risks, benefits, complications, and side effects. Alternative methods of post-operative analgesia were detailed. Questions were solicited and answers provided to the satisfaction of the patient/family/POA. Time-Out: A pre-procedural Time-Out was completed immediately before starting the procedure and confirmed: Patient Identification, Site, Procedure, Patient Position and the Availability of Requisite Equipment. Clinical Indications: Acute post-operative pain management requested by the operative surgeon. Nerve Block Insertion Note Anes-nerve block: adductor canal left Patient position: supine Skin prep: chlorhexidine Needle: 22 gauge, stimulating, insulated echogenic needle. Needle length: 80 mm Technique: ultrasound Technique comment: in plane Injectate: bupivacaine 0.5% with epi 5 mcg/ml (30cc) Observations: tolerated well Complications: none Procedure start time:: 725 Procedure end time:: 730
[2020-12-19] MEDS: ceFAZolin 2 GM/D5W 50 ML 2 GM/50 ML BAG IVPB (07:30)
--- NOTE | 2020-12-19 09:38 | PM.PROC ---
Procedure Note - Detailed Date of procedure: 12/19/20 Pre-op diagnosis: Primary OA left knee Post-op diagnosis: same Procedure performed: Total knee arthroplasty, left Description of procedure: Bone quality was poor. No significant releases were required. The all-polyethylene tibia fit very nicely. Implants: Gracie Triathlon size 3 cemented femur, size 4 CS cemented all polyethylene tibia 11mm, 35mm asymmetric cemented polyethylene patellar component. Anesthesia: GETA and regional (subsartorial nerve block) Surgeon: Nathanael Abel MD Complex Care Nurse Practitioner: Gabriela Prutit PA-C Estimated blood loss (mL): 200 Drains: No Complications: None Condition: stable Disposition: PACU Findings: Physician lead dental assistant, Gabriela Pruitt PA-C, required for surgery; including patient positioning, draping, tissue retraction, maintaining instrument position, cement removal, wound closure, and dressing placement. OPERATIVE DETAILS: The patient was given a nerve block preoperatively, and then brought to the operating room. A general anesthetic was administered. The leg was prepped and draped in the usual sterile fashion. The limb was elevated and the tourniquet inflated to 300 mmHg during initial exposure, and cementation. A longitudinal incision was created along the medial border of the patella and patellar tendon, and a high mid-vastus approach to the knee was performed. No medial release was taken. The knee was then flexed. The osteophytes were carefully removed. The intramedullary guide was placed in the femoral canal. The distal femoral resection was then taken with the oscillating saw. The collateral ligaments were carefully protected. The tibia was carefully exposed. The jig was applied, and the proximal tibia was resected according to preoperative plan. The pain really anesthetic mixture was injected into the periarticular tissues. The knee was balanced in extension, and appropriate releases were taken where needed. The anterior cruciate ligament and meniscal remnants were removed. The posterior cruciate ligament was preserved. The patella was measured. Patellar resection was carried out with the oscillating saw. The lug holes drilled. The femur was sized and rotation assessed using a combination of gap balancing, posterior referencing, and the AP axis. The 4 in 1 cutting block was used to finish the femoral cuts after equal gaps were assured. The lug holes were drilled. The osteophytes were carefully removed from the back of the knee. The knee was copiously irrigated with antibiotic solution periodically throughout the procedure. The spacer block was used to confirm equal flexion and extension gaps. Further releases were performed as needed. The tibia was sized and broached. The bony surfaces were prepared for cementing with pulsatile lavage. The real tibial, femoral, and patellar components were cemented into position. Excess cement was carefully removed. Patellar tracking was carefully assessed. No additional releases were required. The wound was closed with #1 Vicryl suture, #2 Quill suture, 1-Almfzp-tfe suture, and 2-0 Strata-fix suture followed by Steri-Strips. A sterile bulky dressing was applied. Meticulous hemostasis was maintained throughout the procedure. There were no complications. The patient was extubated and brought to the recovery room in stable condition after the application of sterile dressing with Marshall bandage.
--- NOTE | 2020-12-19 10:07 | SUR.PHASEI ---
PT AWAKE AND ALERT. RESTING QUIETLY. STATES NUMBNESS AND HEAVINESS TO LT KNEE. SENSATION TO FOOT AND MOVEMENT TO FOOT.
--- NOTE | 2020-12-19 10:26 | SUR.PHASEI ---
PT AWAKE AND ALERT. DENIES PAIN. EATING A FEW ICE CHIPS
--- NOTE | 2020-12-19 11:00 | ADMGEN ---
This patient, Sunitha Dooley, was admitted to Medical Room 246-. Patient/family oriented to hospital policies and general routines including ID bracelet, bed and alarms, visiting hours, pain management, procedures, bathroom and other care routines, personal items, smoking policy, room service/diet, and visiting hours. Information on how to activate the Rapid Response Team has been discussed. Patient/Family are encouraged to report perceived risks to care and to ask questions if they do not understand what they are told or what they should do.
[2020-12-19 11:01] LABS: Glucose Point of Care 183 (65-105)
--- NOTE | 2020-12-19 11:17 | PM.IMCN ---
Assessment and Plan Assessment and plan (1) Primary osteoarthritis of left knee: Code(s): M17.12 - Unilateral primary osteoarthritis, left knee Status: Acute Assessment and Plan: a status post total left knee arthroplasty PT OT supportive care DVT prophylaxis follow orthopedic surgery recommendations (2) RBBB (right bundle branch block with left anterior fascicular block): Code(s): I45.2 - Bifascicular block Status: Acute Assessment and Plan: stable continue to monitor (3) Aortic stenosis: Code(s): I35.0 - Nonrheumatic aortic (valve) stenosis Status: Acute Assessment and Plan: stable continue to monitor (4) CAD (coronary artery disease): Code(s): I25.10 - Atherosclerotic heart disease of [place] coronary artery without angina pectoris Status: Acute Assessment and Plan: stable continue to monitor (5) Murmur: Code(s): R01.1 - Cardiac murmur, unspecified Status: Acute Assessment and Plan: stable continue to monitor (6) Mitral regurgitation and aortic stenosis: Code(s): I08.0 - Rheumatic disorders of both mitral and aortic valves Status: Acute Assessment and Plan: stable continue to monitor (7) Mixed hyperlipidemia: Code(s): E78.2 - Mixed hyperlipidemia Status: Acute Assessment and Plan: continue statin (8) Benign essential HTN: Code(s): I10 - Essential (primary) hypertension Status: Acute Assessment and Plan: resume home meds (9) DM neuropathy, type II diabetes mellitus: Code(s): E11.40 - Type 2 diabetes mellitus with diabetic neuropathy, unspecified Status: Acute Assessment and Plan: holding meds continue insulin Lantus insulin and sliding scale as needed Accu-Cheks AC and HS 1800 calorie restricted diet holding metformin HPI Data of Consult Consult date: 12/19/20 Requesting Physician: Nathanael Abel MD Primary Care Provider: Alanna Kaufman MD Consult Narrative Reason for consult: medical management Narrative: Sunitha Dooley is a 85 year old female who is status post left knee total arthroplasty patient has past medical history significant for DJD, hypertension, type 2 diabetes mellitus, vertigo. I am seeing this patient upon request consult by orthopedic surgery for medical management at this time patient denies any issues she has being in her usual state of health prior and up until her surgery. she denies any shortness of breath ,cough or sputum production, no chest pain ,orthopnea no PND no syncope or near syncope her sugars have been up and down according to her, no fevers no rigors or chills no palpitation, no leg swelling. Review of Systems Review of Systems: Narrative: patient is status post left total knee arthroplasty Constitutional: Comments: no chills no fevers no fatigue no generalized malaise no weakness Eyes: Comments: no changes in her vision ENT: Comments: no dizziness, no nasal congestion or discharge no trouble swallowing. Cardiovascular: Comments: no chest pain no PND no orthopnea Respiratory: Comments: no shortness of breath no cough no sputum production Gastrointestinal: Comments: no nausea no vomiting no abdominal pain no diarrhea Genitourinary: Comments: no pain or burning with urination Musculoskeletal: Comments: she is status post left total knee arthroplasty Neurologic: Comments: no sensorimotor deficit Endocrine: Comments: my sugars have been up and down [facility] Past Medical History Medical History (Updated 12/18/20 @ 10:34 by Jori Roque MD) Aortic stenosis Arthritis Benign essential HTN Breast CA CAD (coronary artery disease) DM neuropathy, type II diabetes mellitus History of breast cancer Mixed hyperlipidemia OAB (overactive bladder) Obesity Primary osteoarthritis of left knee RBBB (right bundle branch block with left anterior
[2020-12-19 11:55] LABS: Basophils Absolute Auto 0.1 K/mm3 (0.0-0.1); Basophils Percent Auto 0.4 % (0.2-1.2); Eosinophils Percent Auto 0.2 % (0-4.4); Hematocrit 38.6 % (37.0-47.0); Hemoglobin 12.7 g/dL (12.0-15.0); Immature Granulocyte Absolute 0.08 K/mm3 (0.00-0.031); Immature Granulocyte Percent A 0.6 % (0-0.5); Lymphocytes Absolute Auto 0.91 K/mm3 (0.9-3.2); Lymphocytes Percent Auto 7.4 % (18.3-44.2); Mean Corpuscular HGB Conc 32.9 g/dl (32-36); Mean Corpuscular Volume 88.1 fl (80-100); Monocytes Absolute Auto 0.4 K/mm3 (0.1-0.6); Monocytes Percent Auto 3.5 % (2.6-8.5); Neutrophils Absolute Auto 10.8 K/mm3 (1.3-6.7); Neutrophils Percent Auto 87.9 % (45.5-73.1); Platelet Count Result 226 k/mm3 (150-375); Red Blood Count 4.38 M/mm3 (4.2-5.4); Red Cell Distribution Width 12.3 % (11.5-14.5); White Blood Count 12.3 K/mm3 (4.5-10.0)
[2020-12-19 12:04] LABS: Anion Gap 4 mmol/L (8-16); Blood Urea Nitrogen 17 mg/dL (7-17); Calcium 8.4 mg/dL (8.4-10.2); Carbon Dioxide 29 mmol/L (22-30); Chloride 104 mmol/L (98-107); Estimated Glomerular Filt Rate > 60; Glucose 180 mg/dL (65-105); Potassium 4.6 mmol/L (3.4-5.0); Sodium 137 mmol/L (137-145)
[2020-12-19 12:08] LABS: Glucose Point of Care 168 (65-105)
[2020-12-19 17:15] LABS: Glucose Point of Care 233 (65-105)
[2020-12-19] MEDS: ENALAPRIL MALEATE 10 MG TABLET 20 MG PO (17:15)
[2020-12-19] MEDS: ASPIRIN 81 MG ENTERIC TABLET PO (17:15)
[2020-12-19] MEDS: DOCUSATE SODIUM 100 MG CAPSULE PO (17:15)
[2020-12-19] MEDS: metFORMIN HCL 500 MG TABLET PO (20:54)
[2020-12-19] MEDS: TEMAZEPAM (*CRX) 15 MG CAPSULE PO (20:54)
[2020-12-19] MEDS: INSULIN GLARGINE (*BKC) 100 UNITS/ML 14 UNITS SUB-Q (20:55)
[2020-12-19 21:03] LABS: Glucose Point of Care 241 (65-105)
[2020-12-19] MEDS: oxyCODONE HCL (*CRX) 5 MG TAB IR PO (23:08)
[2020-12-20] VITALS (9 sets, daily range): BP systolic 145–168; BP diastolic 43–68; PULSE 81–110; RESP 16–20; TEMP 35.9–36.8; O2SAT 90–100
[2020-12-20] MEDS: oxyCODONE HCL (*CRX) 5 MG TAB IR PO ×2 (05:48→10:49)
[2020-12-20 05:59] LABS: Basophils Percent Auto 0.4 % (0.2-1.2); Eosinophils Absolute Auto 0.3 K/mm3 (0-0.3); Eosinophils Percent Auto 2.8 % (0-4.4); Hematocrit 35.4 % (37.0-47.0); Hemoglobin 11.6 g/dL (12.0-15.0); Immature Granulocyte Absolute 0.04 K/mm3 (0.00-0.031); Immature Granulocyte Percent A 0.4 % (0-0.5); Lymphocytes Absolute Auto 1.12 K/mm3 (0.9-3.2); Lymphocytes Percent Auto 11.5 % (18.3-44.2); Mean Corpuscular HGB Conc 32.8 g/dl (32-36); Mean Corpuscular Hemoglobin 28.7 pg (26-34); Mean Corpuscular Volume 87.6 fl (80-100); Mean Platelet Volume 10.3 fl (7.4-10.4); Monocytes Absolute Auto 0.6 K/mm3 (0.1-0.6); Monocytes Percent Auto 5.6 % (2.6-8.5); Neutrophils Absolute Auto 7.8 K/mm3 (1.3-6.7); Neutrophils Percent Auto 79.3 % (45.5-73.1); Platelet Count Result 194 k/mm3 (150-375); Red Blood Count 4.04 M/mm3 (4.2-5.4); Red Cell Distribution Width 12.2 % (11.5-14.5); White Blood Count 9.8 K/mm3 (4.5-10.0)
[2020-12-20 06:17] LABS: Anion Gap 1 mmol/L (8-16); Blood Urea Nitrogen 17 mg/dL (7-17); Calcium 8.1 mg/dL (8.4-10.2); Carbon Dioxide 32 mmol/L (22-30); Chloride 102 mmol/L (98-107); Estimated Glomerular Filt Rate > 60; Glucose 153 mg/dL (65-105); Potassium 4.3 mmol/L (3.4-5.0); Sodium 135 mmol/L (137-145)
--- NOTE | 2020-12-20 08:18 | WPDANESPN ---
Anes - Prog Note Post-Op Date/Time: 12/20/20 08:18 Cardiovascular status: normal Respiratory status: normal Airway patency: baseline Mental status: baseline Post-Op hydration status: normal Vital Signs: Last Vital Signs Temp 35.9 C L 12/20/20 04:00 Pulse 81 12/20/20 04:00 Resp 16 12/20/20 04:00 BP 149/62 H 12/20/20 04:00 Pulse Ox 100 12/20/20 04:00 Pain Score (VAS): 6/10. Patient resting in bed at time of assessment. Patient states some relief with PRN pain meds. Student nurse at bedside. I/O: Intake & Output 12/19/20 12/20/20 12/20/20 23:59 07:59 15:59 Intake Total 490 300 Output Total 500 500 Balance -10 -200 Laboratory Tests 12/20/20 05:27 12/20/20 05:27 12/19/20 12/19/20 12/19/20 09:58 11:39 11:39 WBC 12.3 H RBC 4.38 Hgb 12.7 Hct 38.6 MCV 88.1 MCH 29.0 MCHC 32.9 RDW 12.3 Plt Count 226 MPV 10.0 Immature Gran % (Auto) 0.6 H Neut % (Auto) 87.9 H Lymph % (Auto) 7.4 L [place] % (Auto) 3.5 Eos % (Auto) 0.2 Baso % (Auto) 0.4 Lymph # (Auto) 0.91 [place] # (Auto) 0.4 Eos # (Auto) 0.0 Baso # (Auto) 0.1 Abs Immat Gran (auto) 0.08 H Absolute Neuts (auto) 10.8 H Absolute Nucleated RBC 0.0 Nucleated RBC % 0.0 Sodium 137 Potassium 4.6 Chloride 104 Carbon Dioxide 29 Anion Gap 4 L BUN 17 Creatinine 0.80 Estim Creat Clear Calc Not Reportable Estimated GFR > 60 Glucose 180 H POC Capillary Glucose 183 H Calcium 8.4 12/19/20 12/19/20 12/19/20 12:00 17:12 20:51 WBC RBC Hgb Hct MCV MCH MCHC RDW Plt Count MPV Immature Gran % (Auto) Neut % (Auto) Lymph % (Auto) [place] % (Auto) Eos % (Auto) Baso % (Auto) Lymph # (Auto) [place] # (Auto) Eos # (Auto) Baso # (Auto) Abs Immat Gran (auto) Absolute Neuts (auto) Absolute Nucleated RBC Nucleated RBC % Sodium Potassium Chloride Carbon Dioxide Anion Gap BUN Creatinine Estim Creat Clear Calc Estimated GFR Glucose POC Capillary Glucose 168 H 233 H 241 H Calcium 12/20/20 12/20/20 05:27 05:27 WBC 9.8 RBC 4.04 L Hgb 11.6 L Hct 35.4 L MCV 87.6 MCH 28.7 MCHC 32.8 RDW 12.2 Plt Count 194 MPV 10.3 Immature Gran % (Auto) 0.4 Neut % (Auto) 79.3 H Lymph % (Auto) 11.5 L [place] % (Auto) 5.6 Eos % (Auto) 2.8 Baso % (Auto) 0.4 Lymph # (Auto) 1.12 [place] # (Auto) 0.6 Eos # (Auto) 0.3 Baso # (Auto) 0.0 Abs Immat Gran (auto) 0.04 H Absolute Neuts (auto) 7.8 H Absolute Nucleated RBC 0.0 Nucleated RBC % 0.0 Sodium 135 L Potassium 4.3 Chloride 102 Carbon Dioxide 32 H Anion Gap 1 L BUN 17 Creatinine 0.80 Estim Creat Clear Calc Not Reportable Estimated GFR > 60 Glucose 153 H POC Capillary Glucose Calcium 8.1 L Post-procedural complaints: none Patient Feedback: Patient satisfied with anesthetic care.
[2020-12-20] MEDS: MELOXICAM 7.5 MG TABLET 15 MG PO (09:10)
[2020-12-20] MEDS: ENALAPRIL MALEATE 10 MG TABLET 20 MG PO ×2 (09:11→17:13)
[2020-12-20] MEDS: ASPIRIN 81 MG ENTERIC TABLET PO ×2 (09:11→17:13)
[2020-12-20] MEDS: DOCUSATE SODIUM 100 MG CAPSULE PO ×2 (09:11→17:13)
[2020-12-20] MEDS: THERAPEUTIC MULTIVITAMINS/MINERALS TAB (*BKC) 1 TABLET PO (09:12)
[2020-12-20] MEDS: PRAVASTATIN SODIUM 10 MG TABLET PO (09:12)
[2020-12-20 12:26] LABS: Glucose Point of Care 200 (65-105)
--- NOTE | 2020-12-20 12:31 | PM.PNORT ---
Progress Note: A&P Assessment and Plan (1) Status post total left knee replacement: Code(s): Z96.652 - Presence of left artificial knee joint <MARYANNE Mckeon - Last Filed: 12/20/20 12:49> Status: Acute <MARYANNE Mckeon - Last Filed: 12/20/20 12:49> Assessment and Plan: POD #1 Total Knee Arthroplasty Left Patient is having some trouble with pain control. Pain is manageable with pain medications. Patient states she is having worsening back pain. She did have back pain prior to surgery. She states that was better when sitting up. Patient is not yet had a bowel movement. Abdomen soft nontender to palpation. Physical therapy with patient at the time of visit. Patient on 2 L 02 nasal cannula at the time of my visit. Physical therapy stated that the patient's oxygen was 97%. I notified not nurse. Due to patient's age, pain control, and comorbidities I recommend the patient stay 1 more night. Likely discharge home tomorrow. <MARYANNE Mckeon - Last Filed: 12/20/20 12:49> Additional Plan Patient seen and examined. Agree with the above documentation. Questions answered. Okay to discharge today. <Nathanael Abel MD - Last Filed: 12/21/20 11:49> Subjective Subjective Date/Time Seen: 12/20/20 10:31 POD #1 Total Knee Arthroplasty Left Patient sitting up in chair. Patient is having a lot of pain in the left knee. Worse with PT. Manageable with pain medications. Patient states she had trouble sleeping last night. She has not had a BM. She does complain of back pain. She had back pain prior to surgery. Pain better with sitting in chair. No chest pain, SOB, abdominal pain. <MARYANNE Mckeon - Last Filed: 12/20/20 12:49> Review of Systems Review of Systems: All systems reviewed & are unremarkable except as noted in HPI and below <MARYANNE Mckeon - Last Filed: 12/20/20 12:49> Exam Extrem: Other: Pleasant 85-year-old female. Resting comfortably in chair. Patient on 2 L of O2 nasal cannula at the time of my visit. Abdomen soft and nontender to palpation. Wearing compression socks bilaterally. Dressing dry and intact. Small roverto sized area of dried bloody discharge on bandage. No limp. No instability. Mild swelling. No erythema. Range of motion limited due to pain. Calf nontender. Neurologic status intact. No varicosities. Distal pulses palpable. <MARYANNE Mckeon - Last Filed: 12/20/20 12:49> Objective Data Vital Signs Vital Signs: Vital Signs - 24 hr 12/19/20 12:45 12/19/20 16:34 12/19/20 20:00 Temperature 97.3 F L 97.5 F L 97.1 F L Pulse Rate 78 77 75 Respiratory Rate 16 16 18 Blood Pressure 134/51 L 150/54 H 144/48 H Pulse Oximetry 95 95 95 12/20/20 00:00 12/20/20 00:21 12/20/20 04:00 Temperature 96.9 F L 96.6 F L Pulse Rate 81 81 Respiratory Rate 16 16 Blood Pressure 145/43 H 149/62 H Pulse Oximetry 90 94 100 12/20/20 09:00 12/20/20 09:19 12/20/20 10:40 Temperature 98.0 F 98.2 F Pulse Rate 92 86 Respiratory Rate 20 20 Blood Pressure 150/48 H 168/54 H Pulse Oximetry 98 94 96 <MARYANNE Mckeon - Last Filed: 12/20/20 12:49> Intake/Output Intake/Output: Intake & Output 12/17/20 12/18/20 12/19/20 12/20/20 23:59 23:59 23:59 23:59 Intake Total 1130 350 Output Total 500 500 Balance 630 -150 <MARYANNE Mckeon - Last Filed: 12/20/20 12:49> Meds/Results Medications: Active Medications Generic Name Dose Route Start Last Admin Trade Name Freq PRN Reason Stop Dose Admin Aspirin 81 mg 12/19/20 17:00 12/20/20 09:11 Aspirin 81 Mg Enteric Tablet PO 81 mg BID RICHARD Administration Docusate Sodium 100 mg 12/19/20 17:00 12/20/20 09:11 Docusate Sodium 100 Mg Capsule PO 100 mg BID RICHARD Administration Enalapril Maleate 20 mg 12/19/20 17:00 12/20/20 09:11 Enalapril Maleate 10 Mg Tablet PO 20 mg BID RICHARD Administration Insulin Glargine 1
--- NOTE | 2020-12-20 14:54 | PC.NURSE ---
On 12/20/20, the student, [Susanna Mcdermott ], provided care and completed [employer] documentation on this patient. I have reviewed the student's documentation and agree with the findings.
--- NOTE | 2020-12-20 16:49 | PM.IMPN ---
Progress Note: A&P Assessment and Plan (1) Status post total left knee replacement: Code(s): Z96.652 - Presence of left artificial knee joint Status: Acute Assessment and Plan: Participating with PT OT in therapy session DVT prophylaxis Pain control Supportive care Incentive spirometry (2) Primary osteoarthritis of left knee: Code(s): M17.12 - Unilateral primary osteoarthritis, left knee Status: Acute Assessment and Plan: Is status post total left knee arthroplasty (3) RBBB (right bundle branch block with left anterior fascicular block): Code(s): I45.2 - Bifascicular block Status: Acute Assessment and Plan: Stable Continue to monitor (4) Aortic stenosis: Code(s): I35.0 - Nonrheumatic aortic (valve) stenosis Status: Acute Assessment and Plan: Stable Continue to monitor (5) CAD (coronary artery disease): Code(s): I25.10 - Atherosclerotic heart disease of [place] coronary artery without angina pectoris Status: Acute Assessment and Plan: Stable Continue enalapril Continue statin (6) Mitral regurgitation and aortic stenosis: Code(s): I08.0 - Rheumatic disorders of both mitral and aortic valves Status: Acute Assessment and Plan: stable Continue to monitor (7) Mixed hyperlipidemia: Code(s): E78.2 - Mixed hyperlipidemia Status: Acute Assessment and Plan: Continue statin Continue to monitor (8) Benign essential HTN: Code(s): I10 - Essential (primary) hypertension Status: Acute Assessment and Plan: Continue to monitor Continue enalapril (9) DM neuropathy, type II diabetes mellitus: Code(s): E11.40 - Type 2 diabetes mellitus with diabetic neuropathy, unspecified Status: Acute Assessment and Plan: Supportive care Follow-up in outpatient setting Monofilament test in the office Subjective Date/time seen: 12/20/20 16:49 States that she feels fine Review of Systems Review of Systems: Narrative: Patient states that she has some pain in her surgical site Constitutional: Comments: No fevers no rigors no chills Cardiovascular: Comments: No PND no orthopnea no leg swelling Respiratory: Comments: No shortness of breath no cough no sputum production Gastrointestinal: Comments: No nausea no vomiting no abdominal pain Genitourinary: Comments: No pain or burning with urination Musculoskeletal: Comments: Is status post left total knee replaced Integumentary/Breasts: Comments: No rash Neurologic: Comments: No sensorimotor deficit Exam Narrative: Exam Narrative: Patient is sitting in the chair participating with PT in a therapy session Const: General: comfortable, no acute distress, well developed, alert and awake Nutritional Appearance: average body habitus Orientation/consciousness: patient oriented x3 HENMT: Head: normal to inspection, normocephalic and atraumatic Ears: hearing grossly normal bilaterally Face and sinus: normal facial exam Eyes: General: appearance normal, both eyes and all related structures Pupils: Equal, round and reactive pupils present EOM: EOMs intact bilaterally Neck: Neck: full ROM, no lymphadenopathy and no JVD Thyroid: thyroid normal Lymphatic: no lymphadenopathy noted Resp: Effort & Inspection: normal respiratory effort and able to speak in complete sentences Auscultation: clear to auscultation bilaterally Cardio: Jugular venous distension: no JVD Rate: regular rate Rhythm: regular rhythm Heart sounds: S1 normal heart sound present and S2 normal heart sound present GI: GI Palp: Yes Soft to palpation and Yes No hepatosplenomegaly present : General: Yes deferred Skin: Rashes: no rashes Wounds: no wounds Neuro: General: patient oriented x3 and CN's II-XI intact bilaterally Cranial nerves: Yes CN's II-XII intact bilaterally and Yes Equal, round and reactive pupils present Cognition (Neuro): normal
--- NOTE | 2020-12-20 18:43 | PC.NURSE ---
Notified Dr. Truong of elevated BP of 182/79. Orders received.
[2020-12-20] MEDS: hydrALAZINE HCL 20 MG/ML VIAL 10 MG IV PUSH (18:52)
[2020-12-20] MEDS: metFORMIN HCL 500 MG TABLET PO (21:19)
[2020-12-20] MEDS: TEMAZEPAM (*CRX) 15 MG CAPSULE PO (21:19)
[2020-12-20] MEDS: INSULIN GLARGINE (*BKC) 100 UNITS/ML 14 UNITS SUB-Q (21:20)
[2020-12-20 21:26] LABS: Glucose Point of Care 228 (65-105)
[2020-12-21 02:00] VITALS: BP 176/47; PULSE 98; RESP 18; TEMP 36.8; O2SAT 96
[2020-12-21 06:00] VITALS: BP 167/59; PULSE 90; RESP 18; TEMP 36.6; O2SAT 96
[2020-12-21 07:33] LABS: Glucose Point of Care 184 (65-105)
[2020-12-21] MEDS: ENALAPRIL MALEATE 10 MG TABLET 20 MG PO (08:02)
[2020-12-21] MEDS: DOCUSATE SODIUM 100 MG CAPSULE PO (08:02)
[2020-12-21] MEDS: THERAPEUTIC MULTIVITAMINS/MINERALS TAB (*BKC) 1 TABLET PO (08:02)
[2020-12-21] MEDS: PRAVASTATIN SODIUM 10 MG TABLET PO (08:02)
[2020-12-21] MEDS: ASPIRIN 81 MG ENTERIC TABLET PO (08:02)
[2020-12-21] MEDS: MELOXICAM 7.5 MG TABLET 15 MG PO (08:02)
[2020-12-21] MEDS: oxyCODONE HCL (*CRX) 5 MG TAB IR PO (08:05)
--- NOTE | 2020-12-21 10:23 | PM.DS ---
DS: Admitting Diagnosis Admitting Diagnosis Admitting Diagnosis: OA knee Left DS: Discharge Diagnosis Discharge Diagnosis (1) Status post total left knee replacement: Code(s): Z96.652 - Presence of left artificial knee joint Status: Acute Assessment and Plan: Postop day 2 left total knee arthroplasty. Discharge home today. Patient progressing well. Pain is controlled with pain medications. Pain worse with ambulating. Patient has had initial physical therapy and occupational therapy. Patient cooperating well. See blue sheet for discharge instructions including wound care. Postoperative wound care, exercises, expectations discussed in detail. Patient shows good understanding. Patient will follow-up in the office in 3 weeks. Appointments are made. Outpatient physical therapy in 2 weeks. DVT prophylaxis aspirin 81 mg b.i.d. for 14 days. Pain medication Percocet. DS: Summary Hospital Course Reason for hospitalization: Total knee arthroplasty Hospital Course: Patient tolerated procedure well. Has had initial PT/OT. Status at Discharge Functional status at discharge: uses cane/walker Overall status at discharge: patient is progressing back to baseline Time Spent with Patient Time attestation: Total time spent providing and/or coordinating discharge services: Exam Narrative: Exam Narrative: Elderly 85-year-old overweight female. Resting comfortably in chair. Alert and oriented x3. No acute distress. Wearing compression socks bilaterally. Dressing intact with small area of dried bloody drainage on Mepilex. This has not changed since yesterday. Moderate swelling. No ecchymosis. No erythema. No hematoma. Range of motion limited due to pain. Calf nontender. Neurologic status intact. No varicosities. Distal pulses palpable. DS: Data Data Completed and Pending Labs on day of discharge: Labs from last 24 hours 12/21/20 12/20/20 12/20/20 06:32 21:18 12:23 POC Capillary Glucose 184 H 228 H 200 H Discharge Plan Discharge Attending physician on discharge: Nathanael Abel Consulting providers: Tammy Truong V. Discharging Clinician: Gabriela Pruitt Patient Disposition: Home, Self-Care Activity: may shower Diet: regular Wound Care Instructions: follow printed instructions Discharge Instructions: See Blue instruction sheet Patient Instructions: Antibiotic Form, Precautions after Total Joint Replacement Surgery (DC), Joint Replacement Surgery (DC), Knee Replacement (DC) Stand Alone Forms: General Discharge Information Follow-up/Referrals: Gabriela Pruitt PA [Physician [employer]ne[employer]] - Discharge Medications: New oxycodone-acetaminophen 5-325 mg tablet 1 - 2 tablet PO Q4-6H MDD 6 PRN (Reason: pain) Qty: 30 RF: 0 aspirin 81 mg tablet,delayed release (DR/EC) 81 mg PO BID 14 Days Qty: 28 RF: 0 Continued (DME) pen needle, diabetic [Comfort EZ Pen [place]] 32 gauge x 5/32 needle See Rx Instructions .ROUTE .MEDSUPPLY Qty: 100 RF: 4 pravastatin 10 mg tablet 10 mg PO DAILY Qty: 30 RF: 5 multivitamin with minerals [Hair,Skin and Nails] Tablet 1 tablet PO DAILY RF: 0 temazepam [Restoril] 15 mg capsule 15 mg PO .qhs RF: 0 metformin 1,000 mg tablet 500 mg PO HS RF: 0 Hold Instructions: Resume on 05/03/20. Restart Friday, May 03, 2020 meclizine 25 mg tablet 25 mg PO Q8H PRN (Reason: dizziness) Qty: 90 RF: 0 meloxicam 15 mg tablet 15 mg PO DAILY Qty: 90 RF: 1 Lantus Solostar U-100 Insulin 100 unit/mL (3 mL) insulin pen 14 - 18 unit subcut HS Qty: 15 RF: 5 enalapril maleate 20 mg tablet 20 mg PO BID Qty: 180 RF: 3 Date of admission: 12/19/20 10:49 Primary Care Provider: Alanna Kaufman Admitting Provider: Nathanael Abel Attending physician on admission: Nathanael Abel Condition: Stable
== END 2020-12-21 12:34 | disposition home or self-care (01) | DRG 470 ==
LOC: ANH2MED 10:53
PROVIDERS: Internal Medicine; Admitting Provider Orthopaedic Surgery; PCP Family Medicine; Visit Provider Orthopaedic Surgery
PROC: 0SRD0J9 Replacement of Left Knee Joint with Synthetic Substitute, Cemented, Open Approach (ICD-10-PCS; CPT 27447; principal; 2020-12-19 07:30)
DX: M17.12 Unilateral primary osteoarthritis, left knee (principal); I45.2 Bifascicular block; E11.40 Type 2 diabetes mellitus with diabetic neuropathy, unspecified; G89.18 Other acute postprocedural pain; E78.2 Mixed hyperlipidemia; I10 Essential (primary) hypertension; I25.10 Atherosclerotic heart disease of native coronary artery without angina pectoris; R01.1 Cardiac murmur, unspecified; I08.0 Rheumatic disorders of both mitral and aortic valves; N32.81 Overactive bladder; Z28.21 Immunization not carried out because of patient refusal; Z79.4 Long term (current) use of insulin; Z79.899 Other long term (current) drug therapy; Z85.3 Personal history of malignant neoplasm of breast; Z87.891 Personal history of nicotine dependence
CPT/HCPCS: 36415; 73560; 80048; 82948; 85025; 97110; 97116; 97161; 97165; 97530; 97535; A9270; C1713; C9803; J0131; J0171; J0360; J0690; J1170; J1815; J1885; J2270; J2405; J2704; J2765; J2795; J3010; J7120; U0003; U0005

== ENCOUNTER 2021-02-16 15:30 | Outpatient (CLI) | payer MEDICARE, BC, SELFPAY ==
--- NOTE | ~2021-02-16 | US_ITS ---
EXAMINATION:US venous doppler LE LT INDICATION:Left leg pain TECHNIQUE: Multiple grayscale, color flow and Doppler images of the left lower extremity deep venous systems were obtained and reviewed. COMPARISON:07/24/2020 FINDINGS: The common femoral, superficial femoral and popliteal veins demonstrate normal respiratory variation, augmentation and compressibility. Color flow is also seen within the posterior tibial, pe roneal, greater saphenous and profunda veins. IMPRESSION: 1: No lower extremity deep venous thrombosis. Reviewed, dictated and finalized at location A.
== END 2021-02-16 15:31 | disposition home or self-care (01) ==
PROVIDERS: PCP Family Medicine; Visit Provider Physician Assistant
DX: R60.0 Localized edema (principal); M79.605 Pain in left leg
CPT/HCPCS: 93971

== ENCOUNTER 2021-06-12 09:38 | Outpatient (CLI) | payer MEDICARE, BC, SELFPAY ==
--- NOTE | 2021-06-12 09:53 | ECHO_ITS ---
Patient Info Name: Sunitha Dooley Age: 86 years : 1935 Gender: Female Ht: 59 in Wt: 175 lbs BSA: 1.86 m2 BP: 219 / 91 mmHg Heart Rhythm: Sinus Rhythm Exam Date: 06/12/2021 10:01 AM Exam Location: [facility] Patient Status: Outpatient Admit Date: 06/12/2021 Staff Ordering Physician: Rhett Schuler DO Attending Provider: Rhett Schuler DO Referring Physician: Ganga REARDON; Exam Type: CA echo doppler color flow Study Info Indications I35.0 - Nonrheumatic aortic (valve) stenosis Complete two-dimensional, color flow and Doppler transthoracic echocardiogram is performed. Summary 1. Complete two-dimensional, color flow and Doppler transthoracic echocardiogram is performed. 2. Left ventricular chamber dimension is normal. 3. Left ventricular systolic function is normal, estimated at 60-65%. 4. There is mildly increased left ventricular wall thickness. 5. The left ventricular diastolic function is grade I diastolic dysfunction. 6. E/e' 27 is elevated. 7. Global longitudinal strain is abnormal at -15.8%. 8. Left atrial chamber dimension is mildly enlarged. 9. There is mild aortic valve stenosis based on a peak velocity of 320 cm/s, mean gradient of 13 mmHg, and aortic valve area of 2.3 cm2. 10. There is moderate aortic valve sclerosis. 11. There is mild aortic valve regurgitation. 12. There is mild mitral valve regurgitation. 13. There is trace tricuspid valve regurgitation. 14. No pulmonary hypertension, estimated pulmonary arterial systolic pressure is 37 mmHg. Left Ventricle E/e' 27 is elevated. Global longitudinal strain is abnormal at -15.8%. Left ventricular chamber dimension is normal. Left ventricular systolic function is normal, estimated at 60-65%. There is mildly increased left ventricular wall thickness. The left ventricular diastolic function is grade I diastolic dysfunction. Right Ventricle Right ventricular chamber dimension is normal. Right ventricular systolic function is normal. Left Atria Left atrial chamber dimension is mildly enlarged. Right Atria Right atrial chamber dimension is normal. Aortic Valve The aortic valve is not well visualized. Cannot determine number of aortic valve leaflets. There is mild aortic valve stenosis based on a peak velocity of 320 cm/s, mean gradient of 13 mmHg, and aortic valve area of 2.3 cm2. There is moderate aortic valve sclerosis. There is mild aortic valve regurgitation. Pulmonic Valve There is no pulmonic regurgitation. Mitral Valve There is no mitral valve stenosis. There is mild mitral valve regurgitation. Tricuspid Valve There is trace tricuspid valve regurgitation. No pulmonary hypertension, estimated pulmonary arterial systolic pressure is 37 mmHg. Pericardium/Pleural There is no pericardial effusion. Inferior Vena Cava Normal inferior vena cava with >50% collapse upon inspiration consistent with normal right atrial pressure, 5 mmHg. Aorta The aortic root size at the sinus of Valsalva is normal. Left Ventricular Outflow Tract Name Value Normal LVOT 2D LVOT Diameter 2.1 cm LVOT Doppler LVOT Peak Gradient
== END 2021-06-12 09:39 | disposition home or self-care (01) ==
LOC: ANHCARD 09:41
PROVIDERS: PCP Family Medicine; Visit Provider Internal Medicine Cardiovascular Disease
DX: I34.0 Nonrheumatic mitral (valve) insufficiency (principal); I35.1 Nonrheumatic aortic (valve) insufficiency
CPT/HCPCS: 93306

== ENCOUNTER 2021-08-10 07:20 | Outpatient (CLI) | payer MEDICARE, BC, SELFPAY ==
--- NOTE | ~2021-08-10 | US_ITS ---
EXAMINATION: US pelvic limited EXAM DATE: 08/10/2021 08:00 INDICATION: R33.9 - Retention of urine, unspecified. Difficulty urinating for several years, but got worse last week. TECHNIQUE: Pelvic transabdominal sonogram was performed. There are multiple grayscale and Doppler im ages available for interpretation. There is no prior study for comparison. FINDINGS: Bladder is prevoid volume was 143 mL. Mild diffuse bladder wall thickening at 5 mm without focal nodularity. Post void bladder volume 21 mL, mild residual. IMPRESSION: 1. Mild postvoid residual. 2. Mildly thickened bladder wall, possible chronic cystitis. Reviewed, dictated and finalized at location D. 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
== END 2021-08-10 07:21 | disposition home or self-care (01) ==
LOC: ANHIMG 07:24
PROVIDERS: PCP Family Medicine; Visit Provider Physician Assistant
DX: R33.9 Retention of urine, unspecified (principal)
CPT/HCPCS: 76857

== ENCOUNTER 2021-12-04 11:59 | Emergency (ER) | payer MEDICARE, BC, SELFPAY ==
[2021-12-04] VITALS (10 sets, daily range): BP systolic 137–268; BP diastolic 48–98; PULSE 54–82; RESP 16–22; TEMP 36.7; O2SAT 96–100
--- NOTE | 2021-12-04 12:41 | ECG_ITS ---
Measurements Intervals [place] Rate: 68 P: 53 MN: 169 QRS: -64 QRSD: 128 T: 40 QT: 407 QTc: 435 Interpretive Statements SINUS RHYTHM RIGHT BUNDLE BRANCH BLOCK [120+ ms QRS DURATION, UPRIGHT V1, 40+ ms S IN I/aVL/V4/V5/V6] LEFT ANTERIOR FASCICULAR BLOCK [QRS AXIS <= -45, QR IN I, RS IN II] POOR R-WAVE PROGRESSION, POSSIBLE OLD ANTERIOR MYOCARDIAL INFARCTION COMPARED TO ECG 03/23/2020 15:44:27 NO SIGNIFICANT CHANGES Electronically Signed On 12-04-2021 18:38:45 CDT by Rhianna Lr M.D.
[2021-12-04 13:03] LABS: Basophils Percent Auto 0.6 % (0.2-1.2); Eosinophils Absolute Auto 0.2 K/mm3 (0-0.3); Eosinophils Percent Auto 2.9 % (0-4.4); Hematocrit 38.1 % (37.0-47.0); Hemoglobin 12.3 g/dL (12.0-15.0); Immature Granulocyte Absolute 0.03 K/mm3 (0.00-0.031); Immature Granulocyte Percent A 0.4 % (0-0.5); Lymphocytes Absolute Auto 1.04 K/mm3 (0.9-3.2); Lymphocytes Percent Auto 15.2 % (18.3-44.2); Mean Corpuscular HGB Conc 32.3 g/dl (32-36); Mean Corpuscular Hemoglobin 28.9 pg (26-34); Mean Corpuscular Volume 89.6 fl (80-100); Mean Platelet Volume 9.7 fl (7.4-10.4); Monocytes Absolute Auto 0.4 K/mm3 (0.1-0.6); Monocytes Percent Auto 5.1 % (2.6-8.5); Neutrophils Absolute Auto 5.2 K/mm3 (1.3-6.7); Neutrophils Percent Auto 75.8 % (45.5-73.1); Platelet Count Result 253 k/mm3 (150-375); Red Blood Count 4.25 M/mm3 (4.2-5.4); Red Cell Distribution Width 12.6 % (11.5-14.5); White Blood Count 6.8 K/mm3 (4.5-10.0)
--- NOTE | 2021-12-04 13:15 | ED.GENADULT ---
HPI - General Adult General Chief complaint: Recheck/Abnormal Lab/Rx Stated complaint: High Blood Pressure Time Seen by Provider: 12/04/21 12:39 Source: patient Mode of arrival: ambulatory Limitations: no limitations History of Present Illness HPI narrative: Patient is 86 years old white female presented to the ED because of elevated blood pressure started 1 and half week ago. Was seen by her disabilities services officer who added a new blood pressure medication at that time without any improvement. Patient denies any headache, blurred vision, nausea, vomiting, chest pain, shortness of breath, back pain or abdominal pain. Patient also denies any stress. Patient currently on carvedilol, clonidine, enalapril, Lasix and hydralazine Related Data Home Medications Medication Instructions Recorded Confirmed Hair,Skin and Nails 1 tablet PO DAILY 03/23/20 11/21/21 Allergies Allergy/AdvReac Type Severity Reaction Status Date / Time adhesive tape AdvReac Mild Rash Verified 12/04/21 12:16 Review of Systems Review of Systems: CONSTITUTIONAL: Denies fever, chills, or sweats. EYES: Denies visual changes, redness, or discharge. ENT: Denies rhinorrhea, congestion, sore throat, or otalgia. CARDIOVASCULAR: Denies chest pain, palpitations, or edema. RESPIRATORY: Denies cough or dyspnea. GASTROINTESTINAL: Denies abdominal pain, nausea, vomiting, or diarrhea. GENITOURINARY: Denies dysuria or hematuria. SKIN: Denies rash or itching. MUSCULOSKELETAL: Denies back pain, joint pain, or myalgia. NEUROLOGIC: Denies headache, numbness, or weakness. PSYCHIATRIC: Denies anxiety or depression. [facility] Past Medical History Medical History Aortic stenosis Arthritis Benign essential HTN Breast CA CAD (coronary artery disease) DM neuropathy, type II diabetes mellitus History of breast cancer Mixed hyperlipidemia OAB (overactive bladder) Obesity Primary osteoarthritis of left knee RBBB (right bundle branch block with left anterior fascicular block) Surgical History Surgical History History of arthroplasty of right shoulder (~01/08/20) History of bladder surgery Family History Family History Other Diabetes mellitus Family history of arthritis Family history of congenital heart disease Family history of malignant neoplasm Family history of type 2 diabetes mellitus Hypertension Social History Social History Social History: Smoking packs per day: 1 Smoking cigarettes per day: 20.0 Years smoked: 10 Smoking pack-years: 10.00 Smoking status: Never smoker Tobacco type: cigarettes 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) Smoking end date: 03/22/80 Additional smoking assessment comments: DENIES ANY FORM OF TOBACCO USE Alcohol intake: former Alcohol use details: DRANK SOCIALLY IN PAST Substance use: never Substance use type: does not use Additional living arrangements comments: SON LIVES WITH PATIENT Gender identity (if verbalized by the patient): Female Sexual Orientation (if Verbalized by the Patient): Straight or Heterosexual Spiritual care concerns: No Exam Narrative: General appearance: Well-developed, well-nourished Skin: Normal color Head: Normocephalic, nontraumatic Eyes: Clear conjunctiva ENT: Oropharynx normal, ears normal, nose normal Neck: Supple, nontender Chest and respiratory: Airway patent, no respiratory distress, no accessory muscle use Heart: Regular rate/rhythm Abdomen: Soft, nontender, no organomegaly, quiet bowel sounds Vascular: Normal peripheral pulses, normal capillary refill. 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
[2021-12-04 13:17] LABS: Alanine Aminotransferase 15 U/L (4-35); Albumin Level 4.2 g/dL (3.5-5.1); Alkaline Phosphatase 87 U/L (38-126); Anion Gap 4 mmol/L (8-16); Aspartate Amino Transferase 26 U/L (14-36); Bilirubin,Total 0.6 mg/dL (0.2-1.3); Blood Urea Nitrogen 19 mg/dL (7-17); Calcium 8.9 mg/dL (8.4-10.2); Carbon Dioxide 28 mmol/L (22-30); Chloride 105 mmol/L (98-107); Estimated Glomerular Filt Rate > 60; Glucose 179 mg/dL (65-110); Potassium 4.5 mmol/L (3.4-5.0); Sodium 137 mmol/L (137-145)
[2021-12-04] MEDS: cloNIDine HCL 0.1 MG TABLET PO ×3 (13:21→14:07)
[2021-12-04 13:28] LABS: Troponin I < 0.012 ng/mL (0.000-0.034)
== END 2021-12-04 15:51 | disposition home or self-care (01) ==
PROVIDERS: Emergency Provider Emergency Medicine; PCP Family Medicine
DX: I15.8 Other secondary hypertension (principal); I10 Essential (primary) hypertension; I35.0 Nonrheumatic aortic (valve) stenosis; I25.10 Atherosclerotic heart disease of native coronary artery without angina pectoris; E11.9 Type 2 diabetes mellitus without complications; E78.2 Mixed hyperlipidemia; N32.81 Overactive bladder; E66.9 Obesity, unspecified; Z68.35 Body mass index [BMI] 35.0-35.9, adult; Z85.3 Personal history of malignant neoplasm of breast; M19.90 Unspecified osteoarthritis, unspecified site; Z87.891 Personal history of nicotine dependence; I45.10 Unspecified right bundle-branch block; I45.2 Bifascicular block; R94.31 Abnormal electrocardiogram [ECG] [EKG]; Z79.4 Long term (current) use of insulin
CPT/HCPCS: 36415; 80053; 84484; 85025; 93005; 99283; 99284; A9270

== ENCOUNTER → 2021-12-06 13:01 | Outpatient (CLI) | payer MEDICARE, SELFPAY ==
--- NOTE | ~2021-12-06 | MM_ITS ---
EXAMINATION: MM screening [facility] BI w [facility] HISTORY: Screening mammogram, history of right breast cancer TECHNIQUE: Craniocaudal and mediolateral oblique 3-D tomosynthesis images were obtained and synthetic 2-D images were generated. CAD analysis was submitted and interpreted. COMPARISON: 08/25/2020, 06/18/2019, 05/07/2018 BREAST PARENCHYMAL COMPOSITION: There are scattered areas of fibroglandular density. FINDINGS: There are stable lumpectomy changes in the right breast. There is no suspicious mass, calci fication, or architectural distortion to suggest malignancy in either breast. There has been no suspi cious interval change. IMPRESSION: 1. No mammographic evidence of malignancy. 2. Recommend routine screening mammography in one year. BI-RADS Category 2: Benign finding(s). Reviewed, dictated and finalized at location A.
== END ==
PROVIDERS: PCP Family Medicine; Visit Provider Family Medicine
DX: Z12.31 Encounter for screening mammogram for malignant neoplasm of breast (principal)
CPT/HCPCS: 77063; 77067

== ENCOUNTER 2022-07-04 13:17 | Outpatient (CLI) | payer MEDICARE, BC, SELFPAY ==
--- NOTE | 2022-07-04 13:36 | ECHO_ITS ---
Patient Info Name: Sunitha Dooley Age: 87 years : 1935 Gender: Female Ht: 59 in Wt: 173 lbs BSA: 1.85 m2 HR: 61 bpm BP: 160 / 76 mmHg Technical Quality: Good Exam Date: 07/04/2022 2:09 PM Exam Location: [facility] Patient Status: Outpatient Admit Date: 07/04/2022 Staff Ordering Physician: Rhett Schuler DO Heel Compressor: Romi Wong RDCS Attending Provider: Rhett Schuler DO Referring Physician: Ganga REARDON; Exam Type: CA echo doppler color flow Study Info Indications I35.0 - Nonrheumatic aortic (valve) stenosis Complete two-dimensional, color flow and Doppler transthoracic echocardiogram is performed. Summary 1. Complete two-dimensional, color flow and Doppler transthoracic echocardiogram is performed. 2. Left ventricular chamber dimension is normal. 3. Left ventricular systolic function is normal, estimated at 65-70%. 4. There is mildly increased left ventricular wall thickness. 5. The left ventricular diastolic function is grade I diastolic dysfunction. 6. E/e' 18 is elevated. 7. Left atrial chamber dimension is moderately enlarged. 8. The aortic valve is not well visualized. Cannot determine number of aortic valve leaflets. 9. There is moderate aortic valve stenosis based on a peak velocity of 279 cm/s, mean gradient of 21 mmHg, and aortic valve area of 1.4 cm2. 10. There is mild mitral valve regurgitation. 11. There is trace tricuspid valve regurgitation. 12. Normal inferior vena cava with <50% collapse upon inspiration consistent with elevated right atrial pressure, 10 mmHg. Left Ventricle E/e' 18 is elevated. Left ventricular chamber dimension is normal. Left ventricular systolic function is normal, estimated at 65-70%. There is mildly increased left ventricular wall thickness. The left ventricular diastolic function is grade I diastolic dysfunction. Right Ventricle Right ventricular systolic function is normal and with normal TAPSE 1.8 cm. Right ventricular chamber dimension is normal. Left Atria Left atrial chamber dimension is moderately enlarged. Right Atria Right atrial chamber dimension is normal. Aortic Valve The aortic valve is not well visualized. Cannot determine number of aortic valve leaflets. There is moderate aortic valve stenosis based on a peak velocity of 279 cm/s, mean gradient of 21 mmHg, and aortic valve area of 1.4 cm2. There is no aortic valve regurgitation. Pulmonic Valve There is no pulmonic regurgitation. Mitral Valve There is no mitral valve stenosis. There is mild mitral valve regurgitation. Tricuspid Valve There is trace tricuspid valve regurgitation. RVSP is not calculated due to an inadequate TR jet. Pericardium/Pleural There is no pericardial effusion. Inferior Vena Cava Normal inferior vena cava with <50% collapse upon inspiration consistent with elevated right atrial pressure, 10 mmHg. Aorta The aortic root size at the sinus of Valsalva is normal. Left Ventricular Outflow Tract Name Value Normal LVOT 2D LVOT Diameter 2.0 cm LVOT Doppler LVOT Peak Gradient 5 mmHg LVOT Mean Gradient
== END 2022-07-04 13:18 | disposition home or self-care (01) ==
LOC: ANHCARD 13:19
PROVIDERS: PCP Family Medicine; Visit Provider Internal Medicine Cardiovascular Disease
DX: I35.0 Nonrheumatic aortic (valve) stenosis (principal); I34.0 Nonrheumatic mitral (valve) insufficiency
CPT/HCPCS: 93306

== ENCOUNTER 2022-12-19 13:15 | Outpatient (CLI) | payer MEDICARE, SELFPAY ==
--- NOTE | ~2022-12-19 | US_ITS ---
EXAMINATION: US venous doppler [facility] DATE: 12/19/2022 15:15 INDICATION: Lower limb pain TECHNIQUE: Whitehead scale images without and with compression and Doppler images of the bilateral lower e xtremity veins were obtained. COMPARISON: 01/27/2021 FINDINGS: The right common femoral vein, profunda femoral vein, femoral vein, popliteal vein, peroneal trunk, p osterior tibial veins, and greater saphenous vein are patent. The left common femoral vein, profunda femoral vein, femoral vein, popliteal vein, peroneal trunk, po sterior tibial veins, and greater saphenous vein are patent. IMPRESSION: 1. Patent bilateral lower extremity veins. No evidence of deep venous thrombosis. Reviewed, dictated and finalized at location F. IMPRESSION: 1. Patent bilateral lower extremity veins. No evidence of deep venous thrombosi s.
--- NOTE | ~2022-12-19 | US_ITS ---
EXAMINATION: US art doppler w press LE BI DATE: 12/19/2022 15:15 INDICATION: Peripheral vascular disease, unspecified. TECHNIQUE: Segmental pressures and plethysmographic and Doppler waveforms of the brachial and lower e xtremity arteries were obtained. COMPARISON: None. FINDINGS: Right and left brachial artery pressures of 209 mm Hg and 213 mm Hg, respectively, are concordant (no rmal difference <= 30 mmHg). The right thigh, below knee, and ankle pressures could not be measured due to inability to cuff occlu de the arteries. The right ankle-brachial index (ABDELRAHMAN) is nondiagnostic. The right great toe-brachial index (TBI) is 0.42 (normal >= 0.65). Arterial Doppler waveforms are biphasic from common femoral art rodolfo to the ankle. The left thigh, below knee, and ankle pressures could not be measured due to inability to cuff occlud e the arteries. The left ABDELRAHMAN is nondiagnostic. The left TBI is 0.70. Arterial Doppler waveforms are b iphasic from common femoral artery to the ankle. IMPRESSION: 1. Brachial artery pressure of 213 mmHg. 2. Nondiagnostic ABIs. 3. Decreased right TBI, consistent with right-sided arterial occlusive disease. Reviewed, dictated and finalized at location A.
== END 2022-12-19 13:16 | disposition home or self-care (01) ==
LOC: ANHIMG 13:18
PROVIDERS: PCP Family Medicine; Visit Provider Nurse Practitioner Gerontology
DX: I73.9 Peripheral vascular disease, unspecified (principal); M79.604 Pain in right leg; M79.605 Pain in left leg; R60.0 Localized edema
CPT/HCPCS: 93923; 93970

== ENCOUNTER 2022-12-28 00:19 | Emergency (ER) | payer MEDICARE, SELFPAY ==
[2022-12-28] VITALS (22 sets, daily range): BP systolic 99–228; BP diastolic 45–81; PULSE 60–79; RESP 12–24; TEMP 36.5; O2SAT 96–99
--- NOTE | ~2022-12-28 | XR_ITS ---
XR chest 1V DATE: 12/28/2022 01:27 INDICATION: Hypertension. Weakness. TECHNIQUE: AP chest COMPARISON: None FINDINGS: Bilateral glenohumeral joint replacement. Osteopenia. Degenerative spurring of the thoracic spine. Cardiomegaly. Aortic arch calcification and ectasia. There is pulmonary vascular redistribution which may indicate pulmonary venous hypertension. There is mild right diaphragmatic eventration. No pulmonary infiltrate or consolidation, pleural effusion or pneumothorax. IMPRESSION: Cardiomegaly Pulmonary vascular redistribution which may indicate mild pulmonary venous hypertension Aortic calcification and ectasia Mild right diaphragmatic eventration No active pulmonary disease Bilateral glenohumeral joint replacement Osteopenia Reviewed, dictated and finalized at location A. IMPRESSION: Cardiomegaly Pulmonary vascular redistribution which may indicate mild pulmonary venous hype rtension Aortic calcification and ectasia Mild right diaphragmatic eventration No active pulmonary disease Bilateral glenohumeral joint replacement Osteopenia
--- NOTE | ~2022-12-28 | CT_ITS ---
EXAMINATION: CT brain wo con DATE: 12/28/2022 01:22 INDICATION: headache . TECHNIQUE: Computed tomography (CT) of the head was performed without intravenous contrast. The mA wa s adjusted according to patient size. Iterative reconstruction technique was employed. The dose-lengt h product was 605.33 mGy-cm. COMPARISON: 05/28/2017. FINDINGS: No acute intracranial hemorrhage or extra-axial fluid collection. No hydrocephalus, mass, or herniation. No acute ischemic infarct. Unremarkable dural venous sinus attenuation. No acute osseous abnormality. The aerated spaces are clear. Mild atrophy and chronic white matter change. Atherosclerotic intracranial calcification. Bilateral l ens replacements. Bilateral basal ganglia calcification. IMPRESSION: No acute intracranial process. Reviewed, dictated and finalized at location K.
[2022-12-28 01:02] LABS: Basophils Percent Auto 0.7 % (0.2-1.2); Eosinophils Absolute Auto 0.2 K/mm3 (0-0.3); Eosinophils Percent Auto 3.9 % (0-4.4); Hematocrit 38.5 % (37.0-47.0); Hemoglobin 12.4 g/dL (12.0-15.0); Immature Granulocyte Absolute 0.02 K/mm3 (0.00-0.031); Immature Granulocyte Percent A 0.3 % (0-0.5); Lymphocytes Absolute Auto 1.22 K/mm3 (0.9-3.2); Lymphocytes Percent Auto 20.9 % (18.3-44.2); Mean Corpuscular HGB Conc 32.2 g/dl (32-36); Mean Corpuscular Hemoglobin 28.8 pg (26-34); Mean Corpuscular Volume 89.5 fl (80-100); Mean Platelet Volume 9.8 fl (7.4-10.4); Monocytes Absolute Auto 0.4 K/mm3 (0.1-0.6); Monocytes Percent Auto 7.2 % (2.6-8.5); Neutrophils Absolute Auto 3.9 K/mm3 (1.3-6.7); Platelet Count Result 234 k/mm3 (150-375); Red Cell Distribution Width 12.9 % (11.5-14.5); White Blood Count 5.8 K/mm3 (4.5-10.0)
--- NOTE | 2022-12-28 01:10 | ECG_ITS ---
Measurements Intervals [place] Rate: 72 P: 58 NC: 162 QRS: -82 QRSD: 138 T: 39 QT: 408 QTc: 448 Interpretive Statements SINUS RHYTHM RIGHT BUNDLE BRANCH BLOCK LEFT ANTERIOR FASCICULAR BLOCK ABNORMAL ECG COMPARED TO ECG 12/04/2021 12:46:40 NO SIGNIFICANT CHANGES Electronically Signed On 12-28-2022 15:21:41 CDT by Dave De Luna M.D.
[2022-12-28 01:20] LABS: Appearance Urine Clear (Clear); Bacteria Urine 2+ /hpf; Bilirubin Urine Negative (Negative); Blood Urine Negative (Negative); Color Urine Yellow (Yellow); Glucose Urine UA Negative (Negative); Ketones Urine Negative (Negative); Leukocyte Esterase Ur Trace LEU/UL (Negative); Nitrate Urine Negative (Negative); Non Pathogenic Casts 0-2; Protein Urine Negative (Negative); RBC Urine 0-2 /hpf (0-2); Specific Grav Ur 1.009 (1.001-1.035); Squamous Epithelial Cell Urine None seen /hpf (Few); WBC Urine 0-5 /hpf
--- NOTE | 2022-12-28 01:22 | ED.GENADULT ---
HPI - General Adult General Chief complaint: Headache <Rhett Quintanilla MD - Last Filed: 12/28/22 06:31> Stated complaint: nausea/headache <Rhett Quintanilla MD - Last Filed: 12/28/22 06:31> Time Seen by Provider: 12/28/22 00:59 <Rhett Quintanilla MD - Last Filed: 12/28/22 06:31> History of Present Illness HPI narrative: This is an 87-year-old female presenting to ED with chief complaint of not feeling well. Patient states that she always feels feels tired but it may have gotten worse over the last 2 days. Yesterday she pushed herself very hard and was running around doing many things with her daughter. Today she felt tired and did not want to be as active. She has been having a headache on and off for the last 1 month that is sometimes on the top of her head and sometimes on the high side of her head. It is a sharp pain. She is not currently having this headache. He also notes that she has leg pain. She says that she has been having this leg pain for 5 years. She also notes that she has been peeing more than usual but when I asked her for how long she said for the last 5 years. Patient is currently denying any complaints. She specifically denies headache, chest pain, difficulty breathing, fever, chills, nausea, vomiting, diarrhea, dysuria or urgency She does note that her blood pressure is elevated. She has difficult to control pressure and has taken all her oral medications at 9:00 p.m. tondarling. <Rhett Quintanilla MD - Last Filed: 12/28/22 06:31> Related Data Home medications: Home Medications Medication Instructions Recorded Confirmed multivitamin with minerals 1 tablet PO DAILY 03/23/20 12/25/22 (Hair,Skin and Nails tablet) <Rhett Quintanilla MD - Last Filed: 12/28/22 06:31> Allergies/adverse reactions: Allergies Allergy/AdvReac Type Severity Reaction Status Date / Time adhesive tape AdvReac Mild Rash Verified 12/28/22 07:49 <Rhett Quintanilla MD - Last Filed: 12/28/22 06:31> [facility] Past Medical History Medical History: Medical History Aortic stenosis Arthritis Benign essential HTN Breast CA CAD (coronary artery disease) DM neuropathy, type II diabetes mellitus History of breast cancer Mixed hyperlipidemia OAB (overactive bladder) Obesity Primary osteoarthritis of left knee RBBB (right bundle branch block with left anterior fascicular block) <Rhett Quintanilla MD - Last Filed: 12/28/22 06:31> Surgical History Surgical History: Surgical History History of arthroplasty of right shoulder (~01/08/20) History of bladder surgery <Rhett Quintanilla MD - Last Filed: 12/28/22 06:31> Family History Family History: Family History Other Diabetes mellitus Family history of arthritis Family history of congenital heart disease Family history of malignant neoplasm Family history of type 2 diabetes mellitus Hypertension <Rhett Quintanilla MD - Last Filed: 12/28/22 06:31> Social History Social History: Social History Social History: Smoking packs per day: 1 Smoking cigarettes per day: 20.0 Years smoked: 10 Smoking pack-years: 10.00 Smoking status: Former smoker Tobacco type: cigarettes 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
[2022-12-28 01:29] LABS: Add Urine Microscopic? YES
[2022-12-28] MEDS: hydrALAZINE HCL 20 MG/ML VIAL 10 MG IV PUSH (01:30)
[2022-12-28 01:46] LABS: Alanine Aminotransferase 17 U/L (6-35); Albumin Level 4.4 g/dL (3.5-5.1); Alkaline Phosphatase 106 U/L (38-126); Anion Gap 7 mmol/L (8-16); Aspartate Amino Transferase 22 U/L (14-36); Blood Urea Nitrogen 22 mg/dL (7-17); Calcium 8.8 mg/dL (8.4-10.2); Carbon Dioxide 27 mmol/L (22-30); Chloride 105 mmol/L (98-107); Estimated Glomerular Filt Rate > 60; Glucose 64 mg/dL (65-110); Potassium 4.3 mmol/L (3.4-5.0); Sodium 139 mmol/L (137-145)
[2022-12-28] MEDS: carvediloL 25 MG TABLET PO (01:53)
[2022-12-28 02:05] LABS: Troponin I < 0.012 ng/mL (0.000-0.034)
[2022-12-28 02:17] LABS: Influenza A QL RT-PCR Negative (Negative); Influenza B QL RT-PCR Negative (Negative); RSV RNA, RT-PCR Negative (Negative); SARS-CoV-2 RNA PCR Negative
[2022-12-28 05:03] LABS: Troponin I < 0.012 ng/mL (0.000-0.034)
== END 2022-12-28 08:47 | disposition home or self-care (01) ==
PROVIDERS: Emergency Provider Emergency Medicine; PCP Family Medicine
DX: I10 Essential (primary) hypertension (principal); I25.10 Atherosclerotic heart disease of native coronary artery without angina pectoris; E11.40 Type 2 diabetes mellitus with diabetic neuropathy, unspecified; E78.2 Mixed hyperlipidemia; N32.81 Overactive bladder; Z85.3 Personal history of malignant neoplasm of breast; I35.0 Nonrheumatic aortic (valve) stenosis; I45.10 Unspecified right bundle-branch block; Z87.891 Personal history of nicotine dependence; Z79.84 Long term (current) use of oral hypoglycemic drugs; Z79.4 Long term (current) use of insulin; Z20.822 Contact with and (suspected) exposure to COVID-19
CPT/HCPCS: 36415; 70450; 71045; 80053; 81001; 84484; 85025; 87637; 93005; 96374; 99284; A9270; J0360

== ENCOUNTER → 2023-02-20 15:28 | Outpatient (CLI) | payer MEDICARE, SELFPAY ==
--- NOTE | ~2023-02-20 | MM_ITS ---
EXAMINATION: MM screening en BI w [facility] HISTORY: Screening mammogram TECHNIQUE: Craniocaudal and mediolateral oblique 3-D tomosynthesis images were obtained and synthetic 2-D images were generated. CAD analysis was submitted and interpreted. COMPARISON: 12/06/2021, 08/2020, 06/18/2019 bilateral screening mammogram examinations BREAST PARENCHYMAL COMPOSITION: There are scattered areas of fibroglandular density. FINDINGS: Again noted is postoperative change from right partial mastectomy for history of malignancy in 2000. There is no evidence of suspicious mass, calcification, or new architectural distortion to suggest malignancy in either breast. There has been no suspicious interval change. IMPRESSION: 1. Status post right partial mastectomy for breast cancer. No mammographic evidence of malignancy. 2. Recommend routine screening mammography in one year. BI-RADS Category 2: Benign finding(s). Reviewed, dictated and finalized at location A. IMPRESSION: 1. Status post right partial mastectomy for breast cancer. No mammographic evid ence of malignancy. 2. Recommend routine screening mammography in one year. BI-RADS Category 2: Benign finding(s).
== END ==
PROVIDERS: PCP Family Medicine; Visit Provider Nurse Practitioner Gerontology
DX: Z12.31 Encounter for screening mammogram for malignant neoplasm of breast (principal)
CPT/HCPCS: 77063; 77067

== ENCOUNTER 2023-07-16 13:19 | Outpatient (CLI) | payer MEDICARE, SELFPAY ==
--- NOTE | 2023-07-16 13:33 | ECHO_ITS ---
Patient Info Name: Sunitha Dooley Age: 88 years : 1935 Gender: Female Ht: 59 in Wt: 146 lbs BSA: 1.69 m2 HR: 65 bpm BP: 175 / 71 mmHg Heart Rhythm: Sinus Rhythm Technical Quality: Good Exam Date: 07/16/2023 1:50 PM Exam Location: [facility] Patient Status: Outpatient Admit Date: 07/16/2023 Staff Ordering Physician: Rhett Schuler DO Shaving Machine Operator: Christal Philippe RDCS Attending Provider: Rhett Schuler DO Referring Physician: Ganga REARDON; Exam Type: CA echo doppler color flow Study Info Indications - aortic stenosis Complete two-dimensional, color flow and Doppler transthoracic echocardiogram is performed. Summary 1. Complete two-dimensional, color flow and Doppler transthoracic echocardiogram is performed. 2. Left ventricular chamber dimension is normal. 3. Left ventricular systolic function is normal, estimated at 65-70%. 4. There is mild concentric increased left ventricular wall thickness. 5. The left ventricular diastolic function is abnormal. 6. E/e' 27 is significantly elevated. 7. Left atrial chamber dimension is mildly enlarged. 8. There is moderate aortic valve sclerosis. 9. There is moderate aortic valve stenosis with a peak velocity of 275 cm/s, mean gradient of 17 mmHg, and aortic valve area of 1.2 cm2. 10. There is mild aortic valve regurgitation. 11. The mitral valve has mildly calcified annulus. 12. There is mild tricuspid valve regurgitation. 13. No pulmonary hypertension, estimated pulmonary arterial systolic pressure is 32 mmHg. Left Ventricle E/e' 27 is significantly elevated. Left ventricular chamber dimension is normal. Left ventricular systolic function is normal, estimated at 65-70%. There is mild concentric increased left ventricular wall thickness. The left ventricular diastolic function is abnormal. Right Ventricle Right ventricular systolic function is normal and with normal TAPSE 2.2 cm. Right ventricular chamber dimension is normal. Left Atria Left atrial chamber dimension is mildly enlarged. Right Atria Right atrial chamber dimension is normal. Aortic Valve The aortic valve is trileaflet. There is moderate aortic valve sclerosis. There is moderate aortic valve stenosis with a peak velocity of 275 cm/s, mean gradient of 17 mmHg, and aortic valve area of 1.2 cm2. There is mild aortic valve regurgitation. Pulmonic Valve There is no pulmonic regurgitation. Mitral Valve The mitral valve has mildly calcified annulus. There is no mitral valve stenosis. There is no mitral valve regurgitation. Tricuspid Valve There is mild tricuspid valve regurgitation. No pulmonary hypertension, estimated pulmonary arterial systolic pressure is 32 mmHg. Pericardium/Pleural There is no pericardial effusion. Inferior Vena Cava Normal inferior vena cava with >50% collapse upon inspiration consistent with normal right atrial pressure, 5 mmHg. Aorta The aortic root size at the sinus of Valsalva is normal. Left Ventricular Outflow Tract Name Value Normal LVOT 2D LVOT Diameter 1.7 cm LVOT Doppler LVOT Peak Gradient 6 mmHg LVOT Mean Gradient 4 mmHg LVOT VTI 40 cm
== END 2023-07-16 13:20 | disposition home or self-care (01) ==
PROVIDERS: PCP Family Medicine; Visit Provider Internal Medicine Cardiovascular Disease
DX: I35.0 Nonrheumatic aortic (valve) stenosis (principal); I35.1 Nonrheumatic aortic (valve) insufficiency; I36.1 Nonrheumatic tricuspid (valve) insufficiency
CPT/HCPCS: 93306

== ENCOUNTER 2023-09-30 15:20 | Outpatient (CLI) | payer MEDICARE, SELFPAY ==
--- NOTE | ~2023-09-30 | XR_ITS ---
XR chest 2V DATE: 09/30/2023 15:37 INDICATION: Intermittent cough TECHNIQUE: PA and lateral views COMPARISON: December 28, 2022 AP chest FINDINGS: Asymmetric postoperative small right breast shadow consistent with partial mastectomy. Surg ical clips, right axillary area consistent with axillary node dissection. Heart size is within normal range. Thoracic and abdominal aortic calcification. No hilar or mediastin al mass lesion. No pulmonary infiltrate or consolidation, pleural effusion or pulmonary vascular sulema estion or pneumothorax is detected. Bilateral glenohumeral arthroplasty. Osteopenia. Dextroscoliosis and degenerative spurring of the tho racic spine. IMPRESSION: Status post right partial mastectomy and axillary node dissection No active cardiac pulmonary disease Aortic atherosclerosis Bilateral glenohumeral joint replacement Osteopenia Scoliosis and degenerative change of the thoracic spine Reviewed, dictated and finalized at location L. KNIFE FOXING CUTTER
== END 2023-09-30 15:21 | disposition home or self-care (01) ==
LOC: ANHIMG 15:21
PROVIDERS: PCP Family Medicine; Visit Provider Family Medicine
DX: R05.9 Cough, unspecified (principal); I70.0 Atherosclerosis of aorta; M85.80 Other specified disorders of bone density and structure, unspecified site; M41.9 Scoliosis, unspecified
CPT/HCPCS: 71046

== ENCOUNTER 2023-12-11 04:03 | Inpatient (IN) | payer MEDICARE, SELFPAY ==
[2023-12-11] VITALS (12 sets, daily range): BP systolic 145–191; BP diastolic 44–66; PULSE 71–118; RESP 18–26; TEMP 36.2–37; O2SAT 94–99; BMI 30.5
--- NOTE | ~2023-12-11 | US_ITS ---
EXAMINATION:US venous doppler LE BI INDICATION:Leg edema TECHNIQUE: Multiple grayscale, color flow and Doppler images of the right and left lower extremity de ep venous systems were obtained and reviewed. COMPARISON:12/19/2022 FINDINGS: The common femoral, superficial femoral and popliteal veins demonstrate normal respiratory variation, augmentation and compressibility. Color flow is also seen within the posterior tibial, pe roneal, greater saphenous and profunda veins. IMPRESSION: 1: No lower extremity deep venous thrombosis. Reviewed, dictated and finalized at location A.
--- NOTE | ~2023-12-11 | XR_ITS ---
EXAMINATION: XR chest 1V portable Exam Date/Time: 12/14/2023 14:10 CDT HISTORY: cough Comparison: 12/12/2023. RESULT: Lines, tubes, and devices: Partially visualized bilateral shoulder arthroplasties. Lungs and pleura: Mild bilateral peripheral reticular opacities. Improved aeration in the left lung base. Minimal streaky bibasilar opacities. Left costophrenic angle blunting. Cardiomediastinal silhouette: Stable. Other: No acute osseous or upper abdominal finding. IMPRESSION: Mild edema. Possible small left pleural effusion. Reviewed, dictated and finalized at location K.
--- NOTE | ~2023-12-11 | CT_ITS ---
Clinical Indication: Chest pain CT Scan of the Chest with Contrast: Technique: Contiguous sections were acquired throughout the chest after intravenous administration of 100 cc of Omnipaque 350. Dose reduction technique was used on this scan by utilizing automated expos ure control and iterative reconstruction technique. The dose-length product (DLP) was 368.48 mGy-cm. Findings: There is no evidence of any significant mediastinal, hilar or axillary lymphadenopathy. There is no f illing defect in the pulmonary arterial tree to suggest pulmonary embolus. There is no evidence of ao rtic dissection or aneurysm. No pericardial effusion. Moderate left pleural effusion present, with extensive partial left lower lobe atelectasis. Right kandi g is clear aside from probable minimal postradiation change at the right middle lobe and anterior rig ht upper lobe. Images through the upper abdomen reveal no abnormalities. There is probable mild infiltrative change in the right axilla, partially imaged. Impression: No evidence of pulmonary embolus, aortic dissection, or aortic aneurysm. Moderate left pleural effusion with extensive partial left lower lobe atelectasis. Suspected minimal postradiation change right lung. Correlate with any relevant history. Partially imaged probable infiltrative change in the right axilla. This could reflect postoperative c hange or other nonspecific edematous/inflammatory change. Correlate clinically. Reviewed, dictated and finalized at location M. Impression: No evidence of pulmonary embolus, aortic dissection, or aortic aneurysm. Moderate left pleural effusion with extensive partial left lower lobe atelectas is. Suspected minimal postradiation change right lung. Correlate with any relevant history. Partially imaged probable infiltrative change in the right axilla. This could r eflect postoperative change or other nonspecific edematous/inflammatory change. Correlate clinically.
--- NOTE | ~2023-12-11 | US_ITS ---
EXAMINATION: US venous doppler UE DATE: 12/14/2023 12:35 INDICATION: Upper extremity edema TECHNIQUE: Whitehead scale images with and without compression and Doppler images of the right and left up per extremity veins were obtained. COMPARISON: None. FINDINGS: The right and left internal jugular vein, subclavian vein, axillary vein, brachial veins, basilic vei n, cephalic vein, radial vein, and ulnar vein are patent. IMPRESSION: 1. Patent bilateral upper extremity veins. No evidence of deep venous thrombosis. Reviewed, dictated and finalized at location A. IMPRESSION: 1. Patent bilateral upper extremity veins. No evidence of deep venous thrombosi s.
--- NOTE | ~2023-12-11 | XR_ITS ---
Portable chest x-ray Comparison: 12/11/2023 Clinical History: Shortness of breath Findings: There is retrocardiac/left perihilar airspace consolidation. Right lung clear. Cardiomedi astinal silhouette is stable. Bilateral shoulder arthroplasties present. Impression: Left lower lobe pulmonary edema/atelectasis versus pneumonia. Correlate clinically. Reviewed, dictated and finalized at [facility]. Impression: Left lower lobe pulmonary edema/atelectasis versus pneumonia. Correlate clinica lly.
--- NOTE | ~2023-12-11 | XR_ITS ---
Portable chest x-ray Comparison: 09/30/2023 Clinical History: Dyspnea Findings: Small left pleural effusion present. There is central congestive change and probable mild pulmonary edema. Cardiomediastinal silhouette is stable. Bilateral shoulder arthroplasties are prese nt. Impression: Small left pleural effusion with central congestive change and probable mild pulmonary edema. Reviewed, dictated and finalized at [facility]. Impression: Small left pleural effusion with central congestive change and probable mild pu lmonary edema.
--- NOTE | 2023-12-11 04:04 | ECG_ITS ---
Measurements Intervals [place] Rate: 94 P: 47 NC: 155 QRS: -70 QRSD: 134 T: 38 QT: 342 QTc: 428 Interpretive Statements SINUS RHYTHM RIGHT BUNDLE BRANCH BLOCK LEFT ANTERIOR FASCICULAR BLOCK BASELINE WANDER- V1-V2 ABNORMAL ECG COMPARED TO ECG 12/28/2022 00:27:58 NO SIGNIFICANT CHANGES Electronically Signed On 12-11-2023 6:36:42 CDT by Rhett Schuler D.O.
--- NOTE | 2023-12-11 04:21 | ECG_ITS ---
Measurements Intervals [place] Rate: 89 P: 50 CT: 155 QRS: -70 QRSD: 134 T: 34 QT: 352 QTc: 428 Interpretive Statements SINUS RHYTHM RIGHT BUNDLE BRANCH BLOCK LEFT ANTERIOR FASCICULAR BLOCK BASELINE ARTIFACT- V1, V3, V6 ABNORMAL ECG COMPARED TO ECG 12/11/2023 04:11:52 NO SIGNIFICANT CHANGES Electronically Signed On 12-11-2023 6:38:24 CDT by Rhett Schuler D.O.
[2023-12-11 04:23] LABS: Basophils Absolute Auto 0.1 K/mm3 (0.0-0.1); Basophils Percent Auto 0.6 % (0.2-1.2); Eosinophils Absolute Auto 0.4 K/mm3 (0-0.3); Eosinophils Percent Auto 4.1 % (0-4.4); Hematocrit 35.3 % (37.0-47.0); Hemoglobin 11.1 g/dL (12.0-15.0); Immature Granulocyte Absolute 0.05 K/mm3 (0.00-0.031); Immature Granulocyte Percent A 0.6 % (0-0.5); Lymphocytes Absolute Auto 1.02 K/mm3 (0.9-3.2); Lymphocytes Percent Auto 11.3 % (18.3-44.2); Mean Corpuscular HGB Conc 31.4 g/dl (32-36); Mean Corpuscular Hemoglobin 27.8 pg (26-34); Mean Corpuscular Volume 88.3 fl (80-100); Mean Platelet Volume 9.2 fl (7.4-10.4); Monocytes Absolute Auto 0.6 K/mm3 (0.1-0.6); Neutrophils Absolute Auto 6.9 K/mm3 (1.3-6.7); Neutrophils Percent Auto 76.4 % (45.5-73.1); Platelet Count Result 300 k/mm3 (150-375); Red Cell Distribution Width 13.3 % (11.5-14.5)
[2023-12-11 04:34] LABS: Alanine Aminotransferase 12 U/L (6-35); Albumin Level 3.9 g/dL (3.5-5.1); Alkaline Phosphatase 142 U/L (38-126); Anion Gap 5 mmol/L (8-16); Aspartate Amino Transferase 24 U/L (14-36); Bilirubin,Total 1.3 mg/dL (0.2-1.3); Blood Urea Nitrogen 22 mg/dL (7-17); Calcium 9.4 mg/dL (8.4-10.2); Carbon Dioxide 26 mmol/L (22-30); Chloride 99 mmol/L (98-107); Estimated CRCL calculation 40 ml/min; Estimated Glomerular Filt Rate > 60; Glucose 212 mg/dL (65-110); Lipase 50 U/L (23-300); Potassium 4.7 mmol/L (3.4-5.0); Sodium 130 mmol/L (137-145)
[2023-12-11] MEDS: ACETAMINOPHEN 500 MG TABLET 1000 MG PO (04:38)
[2023-12-11] MEDS: ASPIRIN 81 MG CHEWABLE TABLET 324 MG PO (04:38)
--- NOTE | 2023-12-11 04:42 | ED.GENADULT ---
HPI - General Adult General Chief complaint: Chest Pain Stated complaint: chest pain Time Seen by Provider: 12/11/23 04:09 History of Present Illness HPI narrative: this is an 88-year-old female presenting to the ED with a chief complaint of chest pain. Patient says that at 6:00 p.m. yesterday evening she felt a pain in the center of her chest that is nonradiating, constant, No exacerbating/ alleviating factors. It is associated with shortness of breath. Patient also notes new lower extremity edema. 3 weeks ago the patient broke her right humerus and is currently in a splint. Patient denies fevers chills nausea vomiting diarrhea or abdominal pain. Related Data Home Medications Medication Instructions Recorded Confirmed multivitamin with minerals 1 tablet PO DAILY 03/23/20 11/19/23 (Hair,Skin and Nails tablet) fluticasone fur. 100 mcg-umeclid 1 inh inhalation DAILY 09/30/23 11/19/23 62.5 mcg-vilant 25 mcg inhalat.powder (Trelegy Ellipta) Allergies Allergy/AdvReac Type Severity Reaction Status Date / Time adhesive tape AdvReac Mild Rash Verified 12/11/23 04:25 [facility] Past Medical History Medical History (Updated 12/11/23 @ 06:09 by Rhett Quintanilla MD) Aortic stenosis Arthritis Benign essential HTN Breast CA CAD (coronary artery disease) DM neuropathy, type II diabetes mellitus History of breast cancer Leg edema Mixed hyperlipidemia Murmur OAB (overactive bladder) Obesity Primary osteoarthritis of left knee RBBB (right bundle branch block with left anterior fascicular block) Type 2 diabetes mellitus treated with insulin Surgical History Surgical History (Updated 12/01/23 @ 15:29 by Nathanael Abel MD) History of arthroplasty of right shoulder (~01/08/20) History of bladder surgery Presence of left artificial shoulder joint Family History Family History Other Diabetes mellitus Family history of arthritis Family history of congenital heart disease Family history of malignant neoplasm Family history of type 2 diabetes mellitus Hypertension Social History Social History Social History: Smoking packs per day: 1 Smoking cigarettes per day: 20.0 Years smoked: 10 Smoking pack-years: 10.00 Smoking status: Former smoker Tobacco type: cigarettes 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) Smoking end date: 03/22/80 Additional smoking assessment comments: DENIES ANY FORM OF TOBACCO USE Alcohol intake: former Alcohol use details: DRANK SOCIALLY IN PAST Substance use: never Substance use type: does not use Lack of Transportation: No Lack of Food: Never True Current Housing: I Have Housing Concerned About Future Housing: No Difficulty Paying Gas/Electric Bills: No Difficulty Paying for Meds: No Currently Unemployed: YES Education: Decline to Answer Difficulty w/ Childcare or Family Care: No Living arrangements: with family Additional living arrangements comments: SON LIVES WITH PATIENT Occupation/Education: retired Gender identity (if verbalized by the patient): Female Sexual Orientation (if Verbalized by the Patient): Straight or Heterosexual Spiritual care concerns: No Exam Narrative: APPEARANCE: uncomfortable appearing Head: atraumatic. EYES: EOMI, NOSE: Atraumatic NECK: Trachea midline RESPIRATORY: tachypneic, clear lung sounds CARDIOVASCULAR: RRR, +2 pitting edema lower extremities ABDOMINAL: Non-distended MUSCULOSKELETAl: patient is wearing a right upper extremity immobilizer NEURO: Alert. Moving 4/4 extremities SKIN:: Warm, dry. Normal color PSYCHIATRIC: Normal affect Course Vital Signs Vital signs: Vital Signs Temperature 98.4 F 12/11/23 04:08 Pulse Rate 118 H 12/11/23 04:08 Respiratory Rate 26 H 12/11/23 04:08 Blood Pressure 191/66 H 12/11/23 04:08 P
[2023-12-11 04:46] LABS: Troponin I < 0.012 ng/mL (0.000-0.034)
[2023-12-11 05:39] LABS: Appearance Urine Clear (Clear); Bacteria Urine 4+ /hpf; Bilirubin Urine Negative (Negative); Blood Urine Negative (Negative); Color Urine Yellow (Yellow); Glucose Urine UA Negative (Negative); Ketones Urine Trace mg/dL (Negative); Leukocyte Esterase Ur 1+ LEU/UL (Negative); Nitrate Urine Positive (Negative); Non Pathogenic Casts 0-2; Protein Urine 1+ mg/dL (Negative); Specific Grav Ur 1.019 (1.001-1.035); Squamous Epithelial Cell Urine Occasional /hpf (Few); Urobilinogen Urine 0.2 mg/dL (<2.0); pH Urine 5.5 (5.0-9.0)
[2023-12-11 05:40] LABS: Add Urine Microscopic? YES
[2023-12-11 05:44] LABS: Lactic Acid Reflex 1.1 mmol/L (0.7-2.0)
[2023-12-11 05:58] LABS: NT Pro B Type Natriuretic Pept 3890 pg/mL (19.9-100)
[2023-12-11 06:07] LABS: Influenza A QL RT-PCR Negative (Negative); Influenza B QL RT-PCR Negative (Negative); RSV RNA, RT-PCR Negative (Negative); SARS-CoV-2 RNA PCR Negative (Negative)
[2023-12-11] MEDS: FUROSEMIDE INJ 40 MG/4 ML VIAL IV PUSH (06:25)
--- NOTE | 2023-12-11 07:19 | PC.NURSE ---
bssr given to AVA Villanueva at this time.
--- NOTE | 2023-12-11 07:27 | ECG_ITS ---
Measurements Intervals [place] Rate: 73 P: 53 VT: 152 QRS: -77 QRSD: 129 T: 32 QT: 387 QTc: 428 Interpretive Statements SINUS RHYTHM RIGHT BUNDLE BRANCH BLOCK LEFT ANTERIOR FASCICULAR BLOCK ABNORMAL ECG COMPARED TO ECG 12/11/2023 04:31:54 NO SIGNIFICANT CHANGES Electronically Signed On 12-11-2023 8:06:34 CDT by Rhett Schuler D.O.
[2023-12-11 07:29] LABS: Troponin I < 0.012 ng/mL (0.000-0.034)
--- NOTE | 2023-12-11 10:07 | ECG_ITS ---
Measurements Intervals [place] Rate: 72 P: 55 PA: 150 QRS: -71 QRSD: 132 T: 46 QT: 390 QTc: 428 Interpretive Statements SINUS RHYTHM RIGHT BUNDLE BRANCH BLOCK LEFT ANTERIOR FASCICULAR BLOCK ABNORMAL ECG COMPARED TO ECG 12/11/2023 07:32:07 NO SIGNIFICANT CHANGES Electronically Signed On 12-11-2023 10:36:54 CDT by Rhett Schuler D.O.
--- NOTE | 2023-12-11 10:30 | ADMGEN ---
This patient, Sunitha Dooley, was admitted to 2 Medical Room 250-01. Patient/family oriented to hospital policies and general routines including ID bracelet, bed and alarms, visiting hours, pain management, procedures, bathroom and other care routines, personal items, smoking policy, room service/diet, and visiting hours. Information on how to activate the Rapid Response Team has been discussed. Patient/Family are encouraged to report perceived risks to care and to ask questions if they do not understand what they are told or what they should do.
[2023-12-11 10:46] LABS: Troponin I < 0.012 ng/mL (0.000-0.034)
[2023-12-11] MEDS: ACETAMINOPHEN 325 MG TABLET 650 MG PO (14:19)
--- NOTE | 2023-12-11 18:18 | PM.IMHP ---
H&P: HPI History of Present Illness Date/Time: 12/11/23 18:18 Chief Complaint: Chest pain Narrative: 88-year-old female presenting to the ED with a chief complaint of chest pain, pt describes central chest pain dull ache associated with SOB. Pt has a history of RBBB, CAD, MR, HLD, HTN and DM recent knee replacement history of PAD and masectomy Pt had a previous fall few weeks ago when she fell from her porch, pt fracture her upper end of right humerus, closed fracture pt wears a brace on her R shoulder. Pt seen orthopedics for this. Pts doctors are all in [place] DR freed, DR amado and Dr Mondragon today sodium is 130s, glucose is 212 bnp is [address] chest shows No evidence of pulmonary embolus, aortic dissection, or aortic aneurysm. Moderate left pleural effusion with extensive partial left lower lobe atelectasis. Suspected minimal postradiation change right lung. Correlate with any relevant history. Partially imaged probable infiltrative change in the right axilla cxr shows left pleural effusion with central congestive change and probable mild pulmonary edema. Pt admitted for CHF excerbation left pleural effusion and suspected UTI cardiac history from cardiology notes - 05/01/[address] Duarte: Prox LAD 20% and RCA ostial 20-30% stenosis. 04/05/20 Lexiscan myoview: Abnormal with small inferolateral infarct and larger reversible ischemia? in LAD and LCx distribution. 07/04/23 Echo: EF 65-70%, mild LVH, grade I diastolic dysfunction (E/e' 18), mod LAE, mod (MANE 1.4 cm2), mild MR, trace TR. 06/12/21 Echo: EF 60-65%, mild LVH, grade I diastolic dysfunction (E/e' 27), mild LAE, mild (mean gradient 13 mmHg), mild AI/MR, trace TR. 04/05/20 Echo: EF 65-70%, mod LVH, grade I diastolic dysfunction (E/e' 15), mild LAE, mild-mod (MANE 1.5 cm2), mild AI, mild MAC, trace MR. 11/20/20 EKG: Sinus rhythm, Ventricular trigeminy, RBBB, LAFB. 03/23/20 EKG: Sinus rhythm, RBBB, LAFB. 12/19/22 Venous duplex: No DVT of bilateral legs. 12/19/22 ABDELRAHMAN nondiagnostic; Right TBI 0.42; left TBI 0.7 suggestive mild right PAD. 02/16/21 Venous duplex: No DVT of left leg. Review of Systems Review of Systems: Chest discomfort mild sob no other complaints in 12 systems [facility] Past Medical History Medical History Aortic stenosis Arthritis Benign essential HTN Breast CA CAD (coronary artery disease) DM neuropathy, type II diabetes mellitus History of breast cancer Leg edema Mixed hyperlipidemia Murmur OAB (overactive bladder) Obesity Primary osteoarthritis of left knee RBBB (right bundle branch block with left anterior fascicular block) Type 2 diabetes mellitus treated with insulin Surgical History Surgical History History of arthroplasty of right shoulder (~01/08/20) History of bladder surgery Presence of left artificial shoulder joint Family History Family History Other Diabetes mellitus Family history of arthritis Family history of congenital heart disease Family history of malignant neoplasm Family history of type 2 diabetes mellitus Hypertension Social History Social History Social History: Smoking packs per day: 1 Smoking cigarettes per day: 20.0 Years smoked: 10 Smoking pack-years: 10.00 Smoking status: Former smoker Tobacco type: cigarettes 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
--- NOTE | 2023-12-11 19:05 | PM.CNCAR ---
Assessment and Plan Assessment and plan (1) Aortic stenosis: Qualifiers: Cardiac valve disease etiology: nonrheumatic Qualified Code(s): I35.0 - Nonrheumatic aortic (valve) stenosis Code(s): I35.0 - Nonrheumatic aortic (valve) stenosis Status: Acute Assessment and Plan: Obtain echo. (2) CAD (coronary artery disease): Qualifiers: Coronary Disease-Associated Artery/Lesion type: [place] artery [place] vs. transplanted heart: [place] heart Associated angina: without angina Qualified Code(s): I25.10 - Atherosclerotic heart disease of [place] coronary artery without angina pectoris Code(s): I25.10 - Atherosclerotic heart disease of [place] coronary artery without angina pectoris Status: Acute Assessment and Plan: Stable. (3) Mixed hyperlipidemia: Code(s): E78.2 - Mixed hyperlipidemia Status: Acute Assessment and Plan: On Pravastatin. (4) Benign essential HTN: Code(s): I10 - Essential (primary) hypertension Status: Acute Assessment and Plan: High. Start HCTZ 25 mg daily. (5) Chest pain: Code(s): R07.9 - Chest pain, unspecified Status: Acute Assessment and Plan: NE r/o by serial troponin and EKG. Probably due to acute on chronic diastolic HF. (6) Diastolic heart failure: Code(s): I50.30 - Unspecified diastolic (congestive) heart failure Status: Acute Assessment and Plan: Acute on chronic. Continue Lasix 40 mg IV daily. History of Present Illness History of Present Illness Consult date/time: 12/11/23 19:05 Reason For Visit: CHF Narrative: 88 yr old woman who is my regular cardiology patient and a patient of Dr. Kaufman presents to ER for chest pain. She has a history of diastolic dysfunction, hypertension (amlodipine causes edema, diuretics keep her in restroom), DM, dyslipidemia, aortic stenosis, PAD. Reports she was just resting at home yesterday when she felt chest pressure and that prompted her to come in. She has intermittent chest pressure at rest. She fell 2 weeks ago due to mechanical reasons and fractured her right arm and wearing a brace. She had left knee replacement and can walk much better.? She can walk short distances due to LITTLE. She has edema of legs at end of the day. Denies chest pain, orthopnea, PND, palpitations. Cardiovascular studies: 05/01/[address] Duarte: Prox LAD 20% and RCA ostial 20-30% stenosis. 04/05/20 Lexiscan myoview: Abnormal with small inferolateral infarct and larger reversible ischemia? in LAD and LCx distribution. 07/16/23 Echo: EF 65-70%, mild LVH, diastolic dysfunction (E/e' 27), mild LAE, mod (MANE 1.2 cm2), mild AI/TR. 07/04/22 Echo: EF 65-70%, mild LVH, grade I diastolic dysfunction (E/e' 18), mod LAE, mod (MANE 1.4 cm2), mild MR, trace TR. 06/12/21 Echo: EF 60-65%, mild LVH, grade I diastolic dysfunction (E/e' 27), mild LAE, mild (mean gradient 13 mmHg), mild AI/MR, trace TR. 04/05/20 Echo: EF 65-70%, mod LVH, grade I diastolic dysfunction (E/e' 15), mild LAE, mild-mod (MANE 1.5 cm2), mild AI, mild MAC, trace MR. 11/20/20 EKG: Sinus rhythm, Ventricular trigeminy, RBBB, LAFB. 03/23/20 EKG: Sinus rhythm, RBBB, LAFB. 12/19/22 Venous duplex: No DVT of bilateral legs. 12/19/22 ABDELRAHMAN nondiagnostic; Right TBI 0.42; left TBI 0.7 suggestive mild right PAD. 02/16/21 Venous duplex: No DVT of left leg. Review of Systems Review of Systems: All systems reviewed & are unremarkable except as noted in HPI and below Constitutional: Constitutional: Reports as per HPI, Denies chills and Denies fever(s) Cardiovascular: Cardiovascular: Reports as per HPI and Reports chest pain at rest Respiratory: Respiratory: Reports as per HPI and Denies dyspnea Gastrointestinal: Gastrointestinal: Reports as per HPI and Denies abdominal pain Genitourinary: Genitourinary: Reports as per HPI and Reports dysuria Musculoskeletal: Musculoskeletal: Report
[2023-12-11 20:47] LABS: Troponin I < 0.012 ng/mL (0.000-0.034)
[2023-12-11] MEDS: amLODIPine BESYLATE 5 MG TABLET PO (20:53)
[2023-12-11] MEDS: ENALAPRIL MALEATE 10 MG TABLET 20 MG PO (20:53)
[2023-12-11] MEDS: carvediloL 12.5 MG TABLET BY MOUTH (20:54)
[2023-12-11] MEDS: cloNIDine HCL 0.1 MG TABLET BY MOUTH (20:54)
[2023-12-11] MEDS: QUEtiapine FUMARATE 25 MG TABLET PO (20:54)
[2023-12-11] MEDS: hydrALAZINE HCL 50 MG TABLET 100 MG BY MOUTH (20:54)
[2023-12-11 21:06] LABS: Glucose Point of Care 274 mg/dl (65-105)
[2023-12-12] VITALS (12 sets, daily range): BP systolic 107–138; BP diastolic 35–66; PULSE 63–81; RESP 16–18; TEMP 36–37; O2SAT 94–99
--- NOTE | 2023-12-12 | ECHO_ITS ---
Patient Info Name: Sunitha Dooley Age: 88 years : 1935 Gender: Female Ht: 59 in Wt: 150 lbs BSA: 1.71 m2 HR: 72 bpm BP: 138 / 48 mmHg Heart Rhythm: Sinus Rhythm Technical Quality: Good Exam Date: 12/12/2023 9:09 AM Exam Location: Echo Lab Patient Status: Inpatient Admit Date: 12/11/2023 Staff Ordering Physician: Nena Carrillo MD Luster Repairer: Christal Philippe RDCS Attending Provider: Tammy Truong MD Referring Physician: Lorena MORELAND; Exam Type: CA echo doppler color flow Study Info Indications - CHF Complete two-dimensional, color flow and Doppler transthoracic echocardiogram is performed. Summary 1. Complete two-dimensional, color flow and Doppler transthoracic echocardiogram is performed. 2. Left ventricular chamber dimension is normal. 3. Left ventricular systolic function is hyperdynamic, estimated at >70%. 4. There is mild concentric increased left ventricular wall thickness. 5. The left ventricular diastolic function is grade I diastolic dysfunction. 6. E/e' 27 is significantly elevated. 7. Left atrial chamber dimension is mildly enlarged. 8. The aortic valve is not well visualized. Cannot determine number of aortic valve leaflets. 9. There is mild aortic valve stenosis based on a peak velocity of 275 cm/s, mean gradient of 19 mmHg, and aortic valve area of 2.1 cm2. 10. There is mild aortic valve regurgitation. 11. There is trace mitral valve regurgitation. 12. There is mild tricuspid valve regurgitation. 13. No pulmonary hypertension, estimated pulmonary arterial systolic pressure is 39 mmHg. Left Ventricle E/e' 27 is significantly elevated. Left ventricular chamber dimension is normal. Left ventricular systolic function is hyperdynamic, estimated at >70%. There is mild concentric increased left ventricular wall thickness. The left ventricular diastolic function is grade I diastolic dysfunction. Right Ventricle Right ventricular systolic function is normal and with normal TAPSE 2.2 cm. Right ventricular chamber dimension is normal. Left Atria Left atrial chamber dimension is mildly enlarged. Right Atria Right atrial chamber dimension is normal. Aortic Valve The aortic valve is not well visualized. Cannot determine number of aortic valve leaflets. There is mild aortic valve stenosis based on a peak velocity of 275 cm/s, mean gradient of 19 mmHg, and aortic valve area of 2.1 cm2. There is mild aortic valve regurgitation. Pulmonic Valve There is no pulmonic regurgitation. Mitral Valve There is no mitral valve stenosis. There is trace mitral valve regurgitation. Tricuspid Valve There is mild tricuspid valve regurgitation. No pulmonary hypertension, estimated pulmonary arterial systolic pressure is 39 mmHg. Pericardium/Pleural There is no pericardial effusion. Inferior Vena Cava Normal inferior vena cava with >50% collapse upon inspiration consistent with normal right atrial pressure, 5 mmHg. Aorta The aortic root size at the sinus of Valsalva is normal. Left Ventricular Outflow Tract Name Value Normal LVOT 2D LVOT Diameter 2.0 cm LVOT Doppler LVOT Peak Gradient 8 mmHg LVOT Mean Gradient 6 mmHg
--- NOTE | 2023-12-12 07:38 | PM.PNCARD ---
Progress Note: A&P Assessment and Plan (1) Aortic stenosis: Qualifiers: Cardiac valve disease etiology: nonrheumatic Qualified Code(s): I35.0 - Nonrheumatic aortic (valve) stenosis Code(s): I35.0 - Nonrheumatic aortic (valve) stenosis Status: Acute Assessment and Plan: Obtain echo. (2) CAD (coronary artery disease): Qualifiers: Coronary Disease-Associated Artery/Lesion type: [place] artery [place] vs. transplanted heart: [place] heart Associated angina: without angina Qualified Code(s): I25.10 - Atherosclerotic heart disease of [place] coronary artery without angina pectoris Code(s): I25.10 - Atherosclerotic heart disease of [place] coronary artery without angina pectoris Status: Acute Assessment and Plan: Stable. (3) Mixed hyperlipidemia: Code(s): E78.2 - Mixed hyperlipidemia Status: Acute Assessment and Plan: On Pravastatin. (4) Benign essential HTN: Code(s): I10 - Essential (primary) hypertension Status: Acute Assessment and Plan: High. Start HCTZ 25 mg daily. (5) Chest pain: Code(s): R07.9 - Chest pain, unspecified Status: Acute Assessment and Plan: HI r/o by serial troponin and EKG. Probably due to acute on chronic diastolic HF. (6) Diastolic heart failure: Code(s): I50.30 - Unspecified diastolic (congestive) heart failure Status: Acute Assessment and Plan: Acute on chronic. On Lasix 40 mg IV daily. D/C Lasix as she appears euvolemic. Advise to limit fluid intake to no more than 1.5 l/day. Subjective Date/time seen: 12/12/23 07:38 Interval history: She's just waking up. No chest pain or sob at the moment. Exam Const: General: cooperative, healthy appearing and comfortable Orientation/consciousness: oriented to person, oriented to place and oriented to time Resp: Auscultation: clear to auscultation bilaterally, no crackles, no rales, no rhonchi and no wheezes Cardio: Rate: regular rate Rhythm: regular rhythm Heart sounds: Murmur heart sound present (III/ systolic murmur RICS) Peripheral pulses: dorsalis pedis present Neuro: General: oriented to person, oriented to place and oriented to time Extrem: Right lower extremity: no edema Left lower extremity: no edema Objective Data Vital Signs Vital Signs: Vital Signs - 24 hr 12/11/23 07:45 12/11/23 11:08 12/11/23 10:35 Temperature 97.1 F L Pulse Rate 74 71 Respiratory Rate 18 18 18 Blood Pressure 154/60 H 145/44 H Pulse Oximetry 94 98 98 Oxygen Delivery Room Air 12/11/23 12:04 12/11/23 15:43 12/11/23 16:00 Temperature 97.1 F L Pulse Rate 79 79 72 Respiratory Rate 18 Blood Pressure 160/46 H Pulse Oximetry 95 Oxygen Delivery 12/11/23 20:47 12/11/23 20:00 12/11/23 20:54 Temperature 98.6 F Pulse Rate 79 79 Respiratory Rate 18 Blood Pressure 162/54 H Pulse Oximetry 97 Oxygen Delivery Room Air 12/12/23 02:55 12/11/23 20:00 12/12/23 00:00 Temperature 96.8 F L Pulse Rate 76 77 70 Respiratory Rate 18 Blood Pressure 138/48 L Pulse Oximetry 94 Oxygen Delivery 12/12/23 04:00 Temperature Pulse Rate 72 Respiratory Rate Blood Pressure Pulse Oximetry Oxygen Delivery Intake/Output Intake/Output: Intake & Output 12/09/23 12/10/23 12/11/23 12/12/23 23:59 23:59 23:59 23:59 Intake Total 650 340 Output Total 1300 400 Balance -650 -60 Meds/Results Medications: Active Medications Generic Name Dose Route Start Last Admin Trade Name Freq PRN Reason Stop Dose Admin Acetaminophen 650 mg 12/11/23 14:07 12/11/23 14:19 Acetaminophen 325 Mg Tablet PO 650 mg Q6H PRN Administration Mild Pain (1-3) or Fever Hydrocodone Bitart/Acetaminophen 1 tab 12/11/23 18:33 Hydrocodone/Acetaminophen (*Crx) 5-325 Mg Tablet BY MOUTH Q4-6H PRN Pain Rated 4-6 Amlodipine Besylate 5 mg 12/11/23 21:00 12/11/23 2
[2023-12-12 07:56] LABS: Anion Gap 2 mmol/L (8-16); Blood Urea Nitrogen 24 mg/dL (7-17); Calcium 8.9 mg/dL (8.4-10.2); Carbon Dioxide 28 mmol/L (22-30); Chloride 100 mmol/L (98-107); Estimated Glomerular Filt Rate > 60; Glucose 195 mg/dL (65-110); NT Pro B Type Natriuretic Pept 5370 pg/mL (19.9-100); Potassium 4.3 mmol/L (3.4-5.0); Sodium 130 mmol/L (137-145)
[2023-12-12 08:27] LABS: Glucose Point of Care 169 mg/dl (65-105)
[2023-12-12] MEDS: ENALAPRIL MALEATE 10 MG TABLET 20 MG PO ×2 (09:52→20:14)
[2023-12-12] MEDS: hydrALAZINE HCL 50 MG TABLET 100 MG BY MOUTH ×2 (09:52→20:14)
[2023-12-12] MEDS: metFORMIN HCL 500 MG TABLET PO (09:52)
[2023-12-12] MEDS: THERAPEUTIC MULTIVITAMINS/MINERALS TAB (*BKC) 1 TABLET PO (09:52)
[2023-12-12] MEDS: carvediloL 12.5 MG TABLET BY MOUTH ×2 (09:52→20:13)
[2023-12-12] MEDS: ENOXAPARIN 40 MG/0.4 ML SYRINGE SUB-Q (09:52)
[2023-12-12] MEDS: cloNIDine HCL 0.1 MG TABLET BY MOUTH ×2 (09:53→20:14)
[2023-12-12] MEDS: hydroCHLOROthiazide 25 MG TABLET PO (09:53)
[2023-12-12] MEDS: PRAVASTATIN SODIUM 10 MG TABLET BY MOUTH (09:53)
--- NOTE | 2023-12-12 10:46 | PM.IMPN ---
Progress Note: A&P Assessment and Plan (1) CHF (congestive heart failure): Qualifiers: Heart failure type: diastolic Code(s): I50.9 - Heart failure, unspecified Status: Acute (2) Acute UTI: Code(s): N39.0 - Urinary tract infection, site not specified Status: Acute (3) Presence of left artificial shoulder joint: Code(s): Z96.612 - Presence of left artificial shoulder joint Status: Acute (4) Fracture of proximal end of right humerus: Code(s): S42.201A - Unspecified fracture of upper end of right humerus, initial encounter for closed fracture Status: Acute (5) Borderline diabetes: Code(s): R73.03 - Prediabetes Status: Acute Plan 88-year-old female presents to the ED with chest pain central dull ache associated with shortness of breath. History of right bundle branch block aortic stenosis coronary artery disease mitral regurgitation hyperlipidemia hypertension and diabetes recent knee replacement history of PAT and mastectomy previous fall few weeks ago when she fell from her porch patient fractured her upper end of right humerus closed fracture wears a brace on her right shoulder seen orthopedics CT chest shows no evidence of PE aortic dissection or aortic aneurysm moderate left pleural effusion with extensive partial left lower lobe atelectasis suspected minimal postradiation change right lung correlate with in the a.m. review events history. Partially imaged probable infiltrative change in right axilla. Chest x-ray showed left pleural effusion with central congestive change and probable mild pulmonary edema. Laboratory workup with normal WBC hemoglobin 11.1 platelet of 300 K sodium of 130 creatinine 0.8 troponin serial were negative. LFTs were normal. UA was negative. Treated for congestive heart failure with IV Lasix also has UA positive suggestive of UTI started on IV Rocephin. Cardiology was consulted. Repeat chest x-ray with left lower lobe pulmonary edema/atelectasis versus pneumonia Repeat echo ordered which showed EF will 70% grade 1 diastolic dysfunction mild aortic valve stenosis Recent arm fracture venous duplex bilateral upper and lower extremities DVT prophylaxis Lovenox Subjective Date/time seen: 12/12/23 10:46 Interval history: 88-year-old female presents to the ED with chest pain central dull ache associated with shortness of breath. History of right bundle branch block aortic stenosis coronary artery disease mitral regurgitation hyperlipidemia hypertension and diabetes recent knee replacement history of PAT and mastectomy previous fall few weeks ago when she fell from her porch patient fractured her upper end of right humerus closed fracture wears a brace on her right shoulder seen orthopedics CT chest shows no evidence of PE aortic dissection or aortic aneurysm moderate left pleural effusion with extensive partial left lower lobe atelectasis suspected minimal postradiation change right lung correlate with in the a.m. review events history. Partially imaged probable infiltrative change in right axilla. Chest x-ray showed left pleural effusion with central congestive change and probable mild pulmonary edema. Laboratory workup with normal WBC hemoglobin 11.1 platelet of 300 K sodium of 130 creatinine 0.8 troponin serial were negative. LFTs were normal. UA was negative. Treated for congestive heart failure with IV Lasix also has UA positive suggestive of UTI started on IV Rocephin. Cardiology was consulted. Repeat chest x-ray with left lower lobe pulmonary edema/atelectasis versus pneumonia Repeat echo ordered pending DVT prophylaxis Lovenox Review of Systems Review of Systems: All systems reviewed & are unremarkable except as noted in HPI and below Exam Narrative: APPEARANCE: Not in Acute distress Head: atraumatic. EYES:? EOMI, NOSE: Atraumatic NECK: Trachea midline RESPIRATORY: Diminished breath sound bilaterally clear lung sounds no r
[2023-12-12 12:02] LABS: Glucose Point of Care 225 mg/dl (65-105)
[2023-12-12] MEDS: INSULIN ASPART (*BKC) 100 UNITS/ML SUB-Q (12:08)
[2023-12-12 17:11] LABS: Glucose Point of Care 148 mg/dl (65-105)
[2023-12-12] MEDS: amLODIPine BESYLATE 5 MG TABLET PO (20:13)
[2023-12-12] MEDS: QUEtiapine FUMARATE 25 MG TABLET PO (20:14)
[2023-12-12 20:23] LABS: Glucose Point of Care 201 mg/dl (65-105)
[2023-12-13] VITALS (13 sets, daily range): BP systolic 128–132; BP diastolic 33–43; PULSE 65–81; RESP 16–20; TEMP 36.6–36.9; O2SAT 95–99
[2023-12-13 05:52] LABS: Basophils Absolute Auto 0.1 K/mm3 (0.0-0.1); Basophils Percent Auto 1.3 % (0.2-1.2); Eosinophils Absolute Auto 0.7 K/mm3 (0-0.3); Eosinophils Percent Auto 11.9 % (0-4.4); Hematocrit 30.3 % (37.0-47.0); Hemoglobin 9.5 g/dL (12.0-15.0); Immature Granulocyte Absolute 0.06 K/mm3 (0.00-0.031); Immature Granulocyte Percent A 1.1 % (0-0.5); Lymphocytes Absolute Auto 1.36 K/mm3 (0.9-3.2); Lymphocytes Percent Auto 24.8 % (18.3-44.2); Mean Corpuscular HGB Conc 31.4 g/dl (32-36); Mean Corpuscular Hemoglobin 28.2 pg (26-34); Mean Corpuscular Volume 89.9 fl (80-100); Mean Platelet Volume 9.8 fl (7.4-10.4); Monocytes Absolute Auto 0.5 K/mm3 (0.1-0.6); Monocytes Percent Auto 9.5 % (2.6-8.5); Neutrophils Absolute Auto 2.8 K/mm3 (1.3-6.7); Neutrophils Percent Auto 51.4 % (45.5-73.1); Platelet Count Result 266 k/mm3 (150-375); Red Blood Count 3.37 M/mm3 (4.2-5.4); Red Cell Distribution Width 13.4 % (11.5-14.5); White Blood Count 5.5 K/mm3 (4.5-10.0)
[2023-12-13 05:56] LABS: Alanine Aminotransferase 11 U/L (6-35); Albumin Level 3.3 g/dL (3.5-5.1); Alkaline Phosphatase 109 U/L (38-126); Anion Gap 6 mmol/L (8-16); Aspartate Amino Transferase 19 U/L (14-36); Bilirubin,Total 0.4 mg/dL (0.2-1.3); Blood Urea Nitrogen 43 mg/dL (7-17); Calcium 8.7 mg/dL (8.4-10.2); Carbon Dioxide 27 mmol/L (22-30); Chloride 101 mmol/L (98-107); Estimated Glomerular Filt Rate 42; Glucose 215 mg/dL (65-110); Magnesium 1.8 mg/dL (1.6-2.3); Potassium 4.3 mmol/L (3.4-5.0); Sodium 134 mmol/L (137-145)
--- NOTE | 2023-12-13 07:10 | PM.PNCARD ---
Progress Note: A&P Assessment and Plan (1) Aortic stenosis: Qualifiers: Cardiac valve disease etiology: nonrheumatic Qualified Code(s): I35.0 - Nonrheumatic aortic (valve) stenosis Code(s): I35.0 - Nonrheumatic aortic (valve) stenosis Status: Acute Assessment and Plan: Stable. 12/12/23 Echo: EF>70%, mild LVH, grade I diastolic dysfunction (E/e' 27), mild LAE, mild /AI/TR, trace MR. (2) CAD (coronary artery disease): Qualifiers: Coronary Disease-Associated Artery/Lesion type: [place] artery [place] vs. transplanted heart: [place] heart Associated angina: without angina Qualified Code(s): I25.10 - Atherosclerotic heart disease of [place] coronary artery without angina pectoris Code(s): I25.10 - Atherosclerotic heart disease of [place] coronary artery without angina pectoris Status: Acute Assessment and Plan: Stable. (3) Mixed hyperlipidemia: Code(s): E78.2 - Mixed hyperlipidemia Status: Acute Assessment and Plan: On Pravastatin. (4) Benign essential HTN: Code(s): I10 - Essential (primary) hypertension Status: Acute Assessment and Plan: Stable. Started HCTZ 25 mg daily. (5) Chest pain: Code(s): R07.9 - Chest pain, unspecified Status: Acute Assessment and Plan: GA r/o by serial troponin and EKG. Probably due to acute on chronic diastolic HF. (6) Diastolic heart failure: Code(s): I50.30 - Unspecified diastolic (congestive) heart failure Status: Acute Assessment and Plan: Acute on chronic. On HCTZ. D/C Lasix as she appears euvolemic. Advise to limit fluid intake to no more than 1.5 l/day. Subjective Date/time seen: 12/13/23 07:10 Interval history: No chest pain or sob. Exam Const: General: cooperative, healthy appearing and comfortable Orientation/consciousness: oriented to person, oriented to place and oriented to time Resp: Auscultation: clear to auscultation bilaterally, no crackles, no rales, no rhonchi, no wheezes and diminished lung sounds Cardio: Rate: regular rate Rhythm: regular rhythm Heart sounds: Murmur heart sound present (III/ systolic murmur RICS) Peripheral pulses: dorsalis pedis present Neuro: General: oriented to person, oriented to place and oriented to time Extrem: Right lower extremity: no edema Left lower extremity: no edema Objective Data Vital Signs Vital Signs: Vital Signs - 24 hr 12/12/23 09:52 12/12/23 09:53 12/12/23 08:01 Temperature Pulse Rate 81 81 74 Respiratory Rate 18 Blood Pressure Pulse Oximetry 94 Oxygen Delivery Room Air 12/12/23 12:04 12/12/23 14:47 12/12/23 16:01 Temperature 98.6 F Pulse Rate 63 63 70 Respiratory Rate 16 Blood Pressure 107/35 L Pulse Oximetry 96 Oxygen Delivery 12/12/23 19:53 12/12/23 20:13 12/12/23 20:00 Temperature 97.6 F Pulse Rate 70 70 Respiratory Rate 16 Blood Pressure 112/66 Pulse Oximetry 99 Oxygen Delivery Room Air 12/13/23 03:41 12/12/23 20:00 12/13/23 00:00 Temperature 98 F Pulse Rate 68 74 65 Respiratory Rate 16 Blood Pressure 132/43 L Pulse Oximetry 95 Oxygen Delivery 12/13/23 04:00 Temperature Pulse Rate 68 Respiratory Rate Blood Pressure Pulse Oximetry Oxygen Delivery Intake/Output Intake/Output: Intake & Output 12/10/23 12/11/23 12/12/23 12/13/23 23:59 23:59 23:59 23:59 Intake Total 650 940 150 Output Total 1300 900 150 Balance -650 40 0 Meds/Results Medications: Active Medications Generic Name Dose Route Start Last Admin Trade Name Freq PRN Reason Stop Dose Admin Acetaminophen 650 mg 12/11/23 14:07 12/11/23 14:19 Acetaminophen 325 Mg Tablet PO 650 mg Q6H PRN Administration Mild Pain (1-3) or Fever Hydrocodone Bitart/Acetaminophen 1 tab 12/11/23 18:33 Hydrocodone/Acetaminophen (*Crx) 5-325 Mg Tablet BY MOUTH Q4-6H PRN Pain Rated 4-6 Aml
[2023-12-13 08:22] LABS: Glucose Point of Care 223 mg/dl (65-105)
[2023-12-13] MEDS: ENOXAPARIN 40 MG/0.4 ML SYRINGE SUB-Q (09:47)
[2023-12-13] MEDS: INSULIN ASPART (*BKC) 100 UNITS/ML SUB-Q ×2 (09:47→12:41)
[2023-12-13] MEDS: cloNIDine HCL 0.1 MG TABLET BY MOUTH ×2 (09:48→21:59)
[2023-12-13] MEDS: carvediloL 12.5 MG TABLET BY MOUTH ×2 (09:48→21:58)
[2023-12-13] MEDS: hydrALAZINE HCL 50 MG TABLET 100 MG BY MOUTH ×2 (09:48→22:01)
[2023-12-13] MEDS: THERAPEUTIC MULTIVITAMINS/MINERALS TAB (*BKC) 1 TABLET PO (09:49)
[2023-12-13] MEDS: PRAVASTATIN SODIUM 10 MG TABLET BY MOUTH (09:49)
[2023-12-13] MEDS: hydroCHLOROthiazide 25 MG TABLET PO (09:49)
[2023-12-13] MEDS: metFORMIN HCL 500 MG TABLET PO (09:50)
[2023-12-13] MEDS: ENALAPRIL MALEATE 10 MG TABLET 20 MG PO ×2 (09:50→22:00)
--- NOTE | 2023-12-13 11:23 | ECG_ITS ---
Measurements Intervals [place] Rate: 71 P: 56 MS: 147 QRS: -81 QRSD: 126 T: 32 QT: 386 QTc: 420 Interpretive Statements SINUS RHYTHM RIGHT BUNDLE BRANCH BLOCK LEFT ANTERIOR FASCICULAR BLOCK BASELINE ARTIFACT- II, III, AVF, V3 ABNORMAL ECG COMPARED TO ECG 12/11/2023 10:19:05 NO SIGNIFICANT CHANGES Electronically Signed On 12-13-2023 13:37:01 CDT by Rhett Schuler D.O.
[2023-12-13 11:58] LABS: Glucose Point of Care 238 mg/dl (65-105)
--- NOTE | 2023-12-13 15:34 | PM.IMPN ---
Progress Note: A&P Assessment and Plan (1) CHF (congestive heart failure): Qualifiers: Heart failure type: diastolic Code(s): I50.9 - Heart failure, unspecified Status: Acute (2) Acute UTI: Code(s): N39.0 - Urinary tract infection, site not specified Status: Acute (3) Presence of left artificial shoulder joint: Code(s): Z96.612 - Presence of left artificial shoulder joint Status: Acute (4) Fracture of proximal end of right humerus: Code(s): S42.201A - Unspecified fracture of upper end of right humerus, initial encounter for closed fracture Status: Acute (5) Borderline diabetes: Code(s): R73.03 - Prediabetes Status: Acute Plan 88-year-old female presents to the ED with chest pain central dull ache associated with shortness of breath. History of right bundle branch block aortic stenosis coronary artery disease mitral regurgitation hyperlipidemia hypertension and diabetes recent knee replacement history of PAT and mastectomy previous fall few weeks ago when she fell from her porch patient fractured her upper end of right humerus closed fracture wears a brace on her right shoulder seen orthopedics CT chest shows no evidence of PE aortic dissection or aortic aneurysm moderate left pleural effusion with extensive partial left lower lobe atelectasis suspected minimal postradiation change right lung correlate with in the a.m. review events history. Partially imaged probable infiltrative change in right axilla. Chest x-ray showed left pleural effusion with central congestive change and probable mild pulmonary edema. Laboratory workup with normal WBC hemoglobin 11.1 platelet of 300 K sodium of 130 creatinine 0.8 troponin serial were negative. LFTs were normal. UA was negative. Treated for congestive heart failure with IV Lasix; also has UA positive suggestive of UTI started on IV Rocephin. Urine culture finalized as E coli.. Will switch to oral. Cardiology was consulted. Repeat chest x-ray with left lower lobe pulmonary edema/atelectasis versus pneumonia Repeat echo ordered which showed EF will 70% grade 1 diastolic dysfunction mild aortic valve stenosis Recent arm fracture venous duplex bilateral upper and lower extremities which is pending DVT prophylaxis Lovenox Subjective Date/time seen: 12/13/23 15:34 Interval history: 88-year-old female presents to the ED with chest pain central dull ache associated with shortness of breath. History of right bundle branch block aortic stenosis coronary artery disease mitral regurgitation hyperlipidemia hypertension and diabetes recent knee replacement history of PAT and mastectomy previous fall few weeks ago when she fell from her porch patient fractured her upper end of right humerus closed fracture wears a brace on her right shoulder seen orthopedics CT chest shows no evidence of PE aortic dissection or aortic aneurysm moderate left pleural effusion with extensive partial left lower lobe atelectasis suspected minimal postradiation change right lung correlate with in the a.m. review events history. Partially imaged probable infiltrative change in right axilla. Chest x-ray showed left pleural effusion with central congestive change and probable mild pulmonary edema. Laboratory workup with normal WBC hemoglobin 11.1 platelet of 300 K sodium of 130 creatinine 0.8 troponin serial were negative. LFTs were normal. UA was negative. Treated for congestive heart failure with IV Lasix also has UA positive suggestive of UTI started on IV Rocephin. Cardiology was consulted. Repeat chest x-ray with left lower lobe pulmonary edema/atelectasis versus pneumonia Repeat echo ordered pending DVT prophylaxis Lovenox 12/13/2023: No overnight events. Echo reviewed. Urine culture with E coli denies any chest pain. Shortness of breath has improved. Review of Systems Review of Systems: All systems reviewed & are unremarkable except as noted in HPI
[2023-12-13 17:13] LABS: Glucose Point of Care 158 mg/dl (65-105)
[2023-12-13 21:00] LABS: Glucose Point of Care 243 mg/dl (65-105)
[2023-12-13] MEDS: amLODIPine BESYLATE 5 MG TABLET PO (21:58)
[2023-12-13] MEDS: CEPHALEXIN 500 MG CAPSULE PO (21:59)
[2023-12-13] MEDS: QUEtiapine FUMARATE 25 MG TABLET PO (22:01)
[2023-12-13] MEDS: HYDROcodone/acetaminophen (*CRX) 5-325 MG TABLET 1 TAB BY MOUTH (22:02)
[2023-12-14] VITALS (10 sets, daily range): BP systolic 116–147; BP diastolic 36–41; PULSE 62–80; RESP 16–20; TEMP 36.4; O2SAT 96–97
[2023-12-14 06:04] LABS: Basophils Absolute Auto 0.1 K/mm3 (0.0-0.1); Eosinophils Absolute Auto 0.7 K/mm3 (0-0.3); Eosinophils Percent Auto 12.1 % (0-4.4); Hematocrit 29.4 % (37.0-47.0); Immature Granulocyte Absolute 0.08 K/mm3 (0.00-0.031); Immature Granulocyte Percent A 1.3 % (0-0.5); Mean Corpuscular HGB Conc 30.6 g/dl (32-36); Mean Corpuscular Hemoglobin 27.5 pg (26-34); Mean Corpuscular Volume 89.9 fl (80-100); Mean Platelet Volume 9.7 fl (7.4-10.4); Monocytes Absolute Auto 0.6 K/mm3 (0.1-0.6); Neutrophils Absolute Auto 3.3 K/mm3 (1.3-6.7); Neutrophils Percent Auto 53.6 % (45.5-73.1); Platelet Count Result 289 k/mm3 (150-375); Red Blood Count 3.27 M/mm3 (4.2-5.4); Red Cell Distribution Width 13.2 % (11.5-14.5); White Blood Count 6.1 K/mm3 (4.5-10.0)
[2023-12-14 06:18] LABS: Alanine Aminotransferase 11 U/L (6-35); Alkaline Phosphatase 93 U/L (38-126); Anion Gap 4 mmol/L (8-16); Aspartate Amino Transferase 16 U/L (14-36); Bilirubin,Total 0.4 mg/dL (0.2-1.3); Blood Urea Nitrogen 43 mg/dL (7-17); Calcium 8.8 mg/dL (8.4-10.2); Carbon Dioxide 28 mmol/L (22-30); Chloride 99 mmol/L (98-107); Estimated Glomerular Filt Rate 42; Glucose 183 mg/dL (65-110); Magnesium 1.8 mg/dL (1.6-2.3); Potassium 4.1 mmol/L (3.4-5.0); Sodium 131 mmol/L (137-145)
[2023-12-14 08:28] LABS: Glucose Point of Care 192 mg/dl (65-105)
--- NOTE | 2023-12-14 08:29 | PM.PNCARD ---
Progress Note: A&P Assessment and Plan (1) Aortic stenosis: Qualifiers: Cardiac valve disease etiology: nonrheumatic Qualified Code(s): I35.0 - Nonrheumatic aortic (valve) stenosis Code(s): I35.0 - Nonrheumatic aortic (valve) stenosis Status: Acute Assessment and Plan: Stable. 12/12/23 Echo: EF>70%, mild LVH, grade I diastolic dysfunction (E/e' 27), mild LAE, mild /AI/TR, trace MR. (2) CAD (coronary artery disease): Qualifiers: Coronary Disease-Associated Artery/Lesion type: [place] artery [place] vs. transplanted heart: [place] heart Associated angina: without angina Qualified Code(s): I25.10 - Atherosclerotic heart disease of [place] coronary artery without angina pectoris Code(s): I25.10 - Atherosclerotic heart disease of [place] coronary artery without angina pectoris Status: Acute Assessment and Plan: Stable. (3) Mixed hyperlipidemia: Code(s): E78.2 - Mixed hyperlipidemia Status: Acute Assessment and Plan: On Pravastatin. (4) Benign essential HTN: Code(s): I10 - Essential (primary) hypertension Status: Acute Assessment and Plan: Stable. On HCTZ 25 mg daily. (5) Chest pain: Code(s): R07.9 - Chest pain, unspecified Status: Acute Assessment and Plan: LA r/o by serial troponin and EKG. Probably due to acute on chronic diastolic HF. (6) Diastolic heart failure: Code(s): I50.30 - Unspecified diastolic (congestive) heart failure Status: Acute Assessment and Plan: Acute on chronic. On HCTZ. D/C Lasix as she appears euvolemic. Advise to limit fluid intake to no more than 1.5 l/day. Subjective Date/time seen: 12/14/23 08:29 Interval history: No chest pain or sob. Exam Const: General: cooperative, healthy appearing and comfortable Orientation/consciousness: oriented to person, oriented to place and oriented to time Resp: Auscultation: clear to auscultation bilaterally, no crackles, no rales, no rhonchi and no wheezes Cardio: Rate: regular rate Rhythm: regular rhythm Heart sounds: Murmur heart sound present (III/ systolic murmur RICS) Peripheral pulses: dorsalis pedis present Neuro: General: oriented to person, oriented to place and oriented to time Extrem: Right lower extremity: no edema Left lower extremity: no edema Objective Data Vital Signs Vital Signs: Vital Signs - 24 hr 12/13/23 09:48 12/13/23 13:35 12/13/23 12:00 Temperature 98.5 F Pulse Rate 81 74 65 Respiratory Rate 20 Blood Pressure 128/40 L Pulse Oximetry 97 Oxygen Delivery 12/13/23 16:00 12/13/23 20:05 12/13/23 21:58 Temperature 98 F Pulse Rate 73 73 70 Respiratory Rate 16 Blood Pressure 132/33 L Pulse Oximetry 98 Oxygen Delivery 12/13/23 20:00 12/14/23 00:00 12/13/23 22:18 Temperature Pulse Rate 73 62 Respiratory Rate Blood Pressure Pulse Oximetry 98 Oxygen Delivery Room Air 12/14/23 04:00 12/14/23 04:52 Temperature 97.6 F Pulse Rate 64 66 Respiratory Rate 16 Blood Pressure 124/36 L Pulse Oximetry 96 Oxygen Delivery Intake/Output Intake/Output: Intake & Output 12/11/23 12/12/23 12/13/23 12/14/23 23:59 23:59 23:59 23:59 Intake Total 013 174 2589 400 Output Total 1300 900 650 Balance -650 40 540 400 Meds/Results Medications: Active Medications Generic Name Dose Route Start Last Admin Trade Name Freq PRN Reason Stop Dose Admin Acetaminophen 650 mg 12/11/23 14:07 12/11/23 14:19 Acetaminophen 325 Mg Tablet PO 650 mg Q6H PRN Administration Mild Pain (1-3) or Fever Hydrocodone Bitart/Acetaminophen 1 tab 12/11/23 18:33 12/13/23 22:02 Hydrocodone/Acetaminophen (*Crx) 5-325 Mg Tablet BY MOUTH 1 tab Q4-6H PRN Administration Pain Rated 4-6 Amlodipine Besylate 5 mg 12/11/23 21:00 12/13/23 21:58 Amlodipine Besylate 5 Mg Tablet PO 5 mg QHS RICHARD Administration Carved
[2023-12-14] MEDS: PRAVASTATIN SODIUM 10 MG TABLET BY MOUTH (09:01)
[2023-12-14] MEDS: ENALAPRIL MALEATE 10 MG TABLET 20 MG PO ×2 (09:01→20:52)
[2023-12-14] MEDS: hydrALAZINE HCL 50 MG TABLET 100 MG BY MOUTH ×2 (09:01→20:52)
[2023-12-14] MEDS: hydroCHLOROthiazide 25 MG TABLET PO (09:01)
[2023-12-14] MEDS: THERAPEUTIC MULTIVITAMINS/MINERALS TAB (*BKC) 1 TABLET PO (09:01)
[2023-12-14] MEDS: ENOXAPARIN 40 MG/0.4 ML SYRINGE SUB-Q (09:01)
[2023-12-14] MEDS: metFORMIN HCL 500 MG TABLET PO (09:01)
[2023-12-14] MEDS: CEPHALEXIN 500 MG CAPSULE PO ×2 (09:01→20:52)
[2023-12-14] MEDS: cloNIDine HCL 0.1 MG TABLET BY MOUTH ×2 (09:02→20:52)
[2023-12-14] MEDS: carvediloL 12.5 MG TABLET BY MOUTH ×2 (09:02→20:53)
[2023-12-14 12:31] LABS: Glucose Point of Care 219 mg/dl (65-105)
[2023-12-14] MEDS: INSULIN ASPART (*BKC) 100 UNITS/ML SUB-Q (12:34)
--- NOTE | 2023-12-14 14:05 | PM.IMPN ---
Progress Note: A&P Assessment and Plan (1) CHF (congestive heart failure): Qualifiers: Heart failure type: diastolic Code(s): I50.9 - Heart failure, unspecified Status: Acute (2) Acute UTI: Code(s): N39.0 - Urinary tract infection, site not specified Status: Acute (3) Presence of left artificial shoulder joint: Code(s): Z96.612 - Presence of left artificial shoulder joint Status: Acute (4) Fracture of proximal end of right humerus: Code(s): S42.201A - Unspecified fracture of upper end of right humerus, initial encounter for closed fracture Status: Acute (5) Borderline diabetes: Code(s): R73.03 - Prediabetes Status: Acute Plan 88-year-old female presents to the ED with chest pain central dull ache associated with shortness of breath. History of right bundle branch block aortic stenosis coronary artery disease mitral regurgitation hyperlipidemia hypertension and diabetes recent knee replacement history of PAT and mastectomy previous fall few weeks ago when she fell from her porch patient fractured her upper end of right humerus closed fracture wears a brace on her right shoulder seen orthopedics CT chest shows no evidence of PE aortic dissection or aortic aneurysm moderate left pleural effusion with extensive partial left lower lobe atelectasis suspected minimal postradiation change right lung correlate with in the a.m. review events history. Partially imaged probable infiltrative change in right axilla. Chest x-ray showed left pleural effusion with central congestive change and probable mild pulmonary edema. With cough will recheck chest x-ray Laboratory workup with normal WBC hemoglobin 11.1 platelet of 300 K sodium of 130 creatinine 0.8 troponin serial were negative. LFTs were normal. UA was negative. Treated for congestive heart failure with IV Lasix; also has UA positive suggestive of UTI started on IV Rocephin. Urine culture finalized as E coli.. Will switch to oral. Cardiology was consulted. Repeat chest x-ray with left lower lobe pulmonary edema/atelectasis versus pneumonia Repeat echo ordered which showed EF will 70% grade 1 diastolic dysfunction mild aortic valve stenosis Recent arm fracture venous duplex bilateral upper and lower extremities which is negative DVT prophylaxis Lovenox PT OT to see Cough: Recheck chest x-ray. Swab COVID flu RSV. Antitussives on hydrochlorothiazide Subjective Date/time seen: 12/14/23 14:05 Interval history: 88-year-old female presents to the ED with chest pain central dull ache associated with shortness of breath. History of right bundle branch block aortic stenosis coronary artery disease mitral regurgitation hyperlipidemia hypertension and diabetes recent knee replacement history of PAT and mastectomy previous fall few weeks ago when she fell from her porch patient fractured her upper end of right humerus closed fracture wears a brace on her right shoulder seen orthopedics CT chest shows no evidence of PE aortic dissection or aortic aneurysm moderate left pleural effusion with extensive partial left lower lobe atelectasis suspected minimal postradiation change right lung correlate with in the a.m. review events history. Partially imaged probable infiltrative change in right axilla. Chest x-ray showed left pleural effusion with central congestive change and probable mild pulmonary edema. Laboratory workup with normal WBC hemoglobin 11.1 platelet of 300 K sodium of 130 creatinine 0.8 troponin serial were negative. LFTs were normal. UA was negative. Treated for congestive heart failure with IV Lasix also has UA positive suggestive of UTI started on IV Rocephin. Cardiology was consulted. Repeat chest x-ray with left lower lobe pulmonary edema/atelectasis versus pneumonia Repeat echo ordered pending DVT prophylaxis Lovenox 12/13/2023: No overnight events. Echo reviewed. Urine culture with E coli denies any chest pain.
[2023-12-14 15:06] LABS: Influenza A QL RT-PCR Negative (Negative); Influenza B QL RT-PCR Negative (Negative); RSV RNA, RT-PCR Negative (Negative); SARS-CoV-2 RNA PCR Negative (Negative)
[2023-12-14] MEDS: BENZONATATE 100 MG CAPSULE 200 MG PO (17:21)
[2023-12-14 17:27] LABS: Glucose Point of Care 178 mg/dl (65-105)
[2023-12-14] MEDS: QUEtiapine FUMARATE 25 MG TABLET PO (20:52)
[2023-12-14] MEDS: guaiFENesin 12 HR 600 MG TABCR PO (20:52)
[2023-12-14] MEDS: amLODIPine BESYLATE 5 MG TABLET PO (20:52)
[2023-12-14 21:26] LABS: Glucose Point of Care 230 mg/dl (65-105)
[2023-12-15] VITALS (7 sets, daily range): BP systolic 113–125; BP diastolic 40–41; PULSE 62–70; RESP 14–17; TEMP 36.7; O2SAT 93–97
[2023-12-15 05:58] LABS: Basophils Absolute Auto 0.1 K/mm3 (0.0-0.1); Basophils Percent Auto 0.9 % (0.2-1.2); Eosinophils Absolute Auto 0.7 K/mm3 (0-0.3); Eosinophils Percent Auto 13.2 % (0-4.4); Hematocrit 28.7 % (37.0-47.0); Hemoglobin 9.1 g/dL (12.0-15.0); Immature Granulocyte Absolute 0.05 K/mm3 (0.00-0.031); Immature Granulocyte Percent A 0.9 % (0-0.5); Lymphocytes Absolute Auto 1.15 K/mm3 (0.9-3.2); Lymphocytes Percent Auto 21.1 % (18.3-44.2); Mean Corpuscular HGB Conc 31.7 g/dl (32-36); Mean Corpuscular Volume 88.3 fl (80-100); Mean Platelet Volume 9.7 fl (7.4-10.4); Monocytes Absolute Auto 0.5 K/mm3 (0.1-0.6); Monocytes Percent Auto 9.4 % (2.6-8.5); Neutrophils Percent Auto 54.5 % (45.5-73.1); Platelet Count Result 300 k/mm3 (150-375); Red Blood Count 3.25 M/mm3 (4.2-5.4); Red Cell Distribution Width 13.2 % (11.5-14.5); White Blood Count 5.4 K/mm3 (4.5-10.0)
[2023-12-15 06:14] LABS: Alanine Aminotransferase 11 U/L (6-35); Albumin Level 3.1 g/dL (3.5-5.1); Alkaline Phosphatase 99 U/L (38-126); Anion Gap 7 mmol/L (8-16); Aspartate Amino Transferase 18 U/L (14-36); Bilirubin,Total 0.5 mg/dL (0.2-1.3); Blood Urea Nitrogen 44 mg/dL (7-17); Calcium 8.9 mg/dL (8.4-10.2); Carbon Dioxide 25 mmol/L (22-30); Chloride 100 mmol/L (98-107); Estimated Glomerular Filt Rate 59; Glucose 230 mg/dL (65-110); Magnesium 1.9 mg/dL (1.6-2.3); Sodium 132 mmol/L (137-145)
--- NOTE | 2023-12-15 07:41 | PM.PNCARD ---
Progress Note: A&P Assessment and Plan (1) Aortic stenosis: Qualifiers: Cardiac valve disease etiology: nonrheumatic Qualified Code(s): I35.0 - Nonrheumatic aortic (valve) stenosis Code(s): I35.0 - Nonrheumatic aortic (valve) stenosis Status: Acute Assessment and Plan: Stable. 12/12/23 Echo: EF>70%, mild LVH, grade I diastolic dysfunction (E/e' 27), mild LAE, mild /AI/TR, trace MR. (2) CAD (coronary artery disease): Qualifiers: Coronary Disease-Associated Artery/Lesion type: [place] artery [place] vs. transplanted heart: [place] heart Associated angina: without angina Qualified Code(s): I25.10 - Atherosclerotic heart disease of [place] coronary artery without angina pectoris Code(s): I25.10 - Atherosclerotic heart disease of [place] coronary artery without angina pectoris Status: Acute Assessment and Plan: Stable. (3) Mixed hyperlipidemia: Code(s): E78.2 - Mixed hyperlipidemia Status: Acute Assessment and Plan: On Pravastatin. (4) Benign essential HTN: Code(s): I10 - Essential (primary) hypertension Status: Acute Assessment and Plan: Stable. On HCTZ 25 mg daily. (5) Chest pain: Code(s): R07.9 - Chest pain, unspecified Status: Acute Assessment and Plan: TX r/o by serial troponin and EKG. Probably due to acute on chronic diastolic HF. (6) Diastolic heart failure: Code(s): I50.30 - Unspecified diastolic (congestive) heart failure Status: Acute Assessment and Plan: Acute on chronic. On HCTZ. Advise to limit fluid intake to no more than 1.5 l/day. Start Lasix 20 mg PO daily. Subjective Date/time seen: 12/15/23 07:41 Interval history: No chest pain or sob. Has cough especially when lying down. Exam Const: General: cooperative, healthy appearing and comfortable Orientation/consciousness: oriented to person, oriented to place and oriented to time Resp: Auscultation: crackles on the left, no rales, no rhonchi, no wheezes and diminished lung sounds Cardio: Rate: regular rate Rhythm: regular rhythm Heart sounds: Murmur heart sound present (III/ systolic murmur RICS) Peripheral pulses: dorsalis pedis present Neuro: General: oriented to person, oriented to place and oriented to time Extrem: Right lower extremity: no edema Left lower extremity: no edema Objective Data Vital Signs Vital Signs: Vital Signs - 24 hr 12/14/23 08:00 12/14/23 08:00 12/14/23 12:00 Temperature Pulse Rate 69 71 Respiratory Rate Blood Pressure Pulse Oximetry Oxygen Delivery Room Air 12/14/23 14:00 12/14/23 16:00 12/14/23 20:53 Temperature 97.6 F Pulse Rate 71 69 80 Respiratory Rate 20 Blood Pressure 116/40 L Pulse Oximetry 97 Oxygen Delivery 12/14/23 21:17 12/14/23 20:00 12/15/23 05:43 Temperature 97.6 F 98.1 F Pulse Rate 73 67 Respiratory Rate 17 17 Blood Pressure 147/41 H 125/41 L Pulse Oximetry 96 93 Oxygen Delivery Room Air 12/14/23 20:00 12/15/23 00:00 12/15/23 04:00 Temperature Pulse Rate 75 70 66 Respiratory Rate Blood Pressure Pulse Oximetry Oxygen Delivery Intake/Output Intake/Output: Intake & Output 12/12/23 12/13/23 12/14/23 12/15/23 23:59 23:59 23:59 23:59 Intake Total 940 1190 880 150 Output Total 900 650 Balance 40 540 880 150 Meds/Results Medications: Active Medications Generic Name Dose Route Start Last Admin Trade Name Freq PRN Reason Stop Dose Admin Acetaminophen 650 mg 12/11/23 14:07 12/11/23 14:19 Acetaminophen 325 Mg Tablet PO 650 mg Q6H PRN Administration Mild Pain (1-3) or Fever Hydrocodone Bitart/Acetaminophen 1 tab 12/11/23 18:33 12/13/23 22:02 Hydrocodone/Acetaminophen (*Crx) 5-325 Mg Tablet BY MOUTH 1 tab Q4-6H PRN Administration Pain Rated 4-6 Amlodipine Besylate 5 mg 12/11/23 21:00 12/14/23 20:52 Amlodipine Besylate 5 Mg
[2023-12-15 08:43] LABS: Glucose Point of Care 209 mg/dl (65-105)
[2023-12-15] MEDS: metFORMIN HCL 500 MG TABLET PO (09:16)
[2023-12-15] MEDS: ENALAPRIL MALEATE 10 MG TABLET 20 MG PO (09:16)
[2023-12-15] MEDS: carvediloL 12.5 MG TABLET BY MOUTH (09:17)
[2023-12-15] MEDS: guaiFENesin 12 HR 600 MG TABCR PO (09:17)
[2023-12-15] MEDS: PRAVASTATIN SODIUM 10 MG TABLET BY MOUTH (09:17)
[2023-12-15] MEDS: THERAPEUTIC MULTIVITAMINS/MINERALS TAB (*BKC) 1 TABLET PO (09:17)
[2023-12-15] MEDS: cloNIDine HCL 0.1 MG TABLET BY MOUTH (09:17)
[2023-12-15] MEDS: hydroCHLOROthiazide 25 MG TABLET PO (09:17)
[2023-12-15] MEDS: hydrALAZINE HCL 50 MG TABLET 100 MG BY MOUTH (09:17)
[2023-12-15] MEDS: CEPHALEXIN 500 MG CAPSULE PO (09:17)
[2023-12-15] MEDS: FUROSEMIDE 20 MG TABLET PO (09:17)
[2023-12-15] MEDS: BENZONATATE 100 MG CAPSULE 200 MG PO ×2 (09:17→12:55)
[2023-12-15] MEDS: INSULIN ASPART (*BKC) 100 UNITS/ML SUB-Q (09:24)
[2023-12-15] MEDS: ENOXAPARIN 40 MG/0.4 ML SYRINGE SUB-Q (09:31)
[2023-12-15 12:26] LABS: Glucose Point of Care 178 mg/dl (65-105)
--- NOTE | 2023-12-15 12:37 | PM.DS ---
DS: Admitting Diagnosis Discharge Date 12/15/2023 Admitting Diagnosis Shortness of breath DS: Discharge Diagnosis Discharge Diagnosis (1) CHF (congestive heart failure): Qualifiers: Heart failure type: diastolic Code(s): I50.9 - Heart failure, unspecified Status: Acute (2) Acute UTI: Code(s): N39.0 - Urinary tract infection, site not specified Status: Acute (3) Presence of left artificial shoulder joint: Code(s): Z96.612 - Presence of left artificial shoulder joint Status: Acute (4) Fracture of proximal end of right humerus: Code(s): S42.201A - Unspecified fracture of upper end of right humerus, initial encounter for closed fracture Status: Acute (5) Borderline diabetes: Code(s): R73.03 - Prediabetes Status: Acute DS: Summary Hospital Course Hospital Course: 88-year-old female presents to the ED with chest pain central dull ache associated with shortness of breath. History of right bundle branch block aortic stenosis coronary artery disease mitral regurgitation hyperlipidemia hypertension and diabetes recent knee replacement history of PAD and mastectomy, recent fall few weeks ago when she fell from her porch patient fractured her upper end of right humerus closed fracture wears a brace on her right shoulder seen orthopedics. Evaluation with CT chest shows no evidence of PE aortic dissection or aortic aneurysm moderate left pleural effusion with extensive partial left lower lobe atelectasis suspected minimal postradiation change right lung correlate with any relevant history. Partially imaged probable infiltrative change in right axilla. Chest x-ray showed left pleural effusion with central congestive change and probable mild pulmonary edema. Laboratory workup with normal WBC hemoglobin 11.1 platelet of 300 K sodium of 130 creatinine 0.8 troponin serial were negative. LFTs were normal. UA was negative. Patient was Treated for congestive heart failure with IV Lasix; also has UA positive suggestive of UTI started on IV Rocephin. Urine culture finalized as E coli.. Switched to cephalexin complete course at discharge. Cardiology was consulted. Repeat chest x-ray with left lower lobe pulmonary edema/atelectasis versus pneumonia. Repeat echo ordered which showed EF will 70% grade 1 diastolic dysfunction mild aortic valve stenosis Lasix was switched to oral and will be discharged on oral Lasix. BMP in 1 week. Recent arm fracture venous duplex bilateral upper and lower extremities which is negative DVT prophylaxis Lovenox PT OT evaluated prior to the discharge Time Spent with Patient Time attestation: Total time spent providing and/or coordinating discharge services: 35 minutes Exam Narrative: APPEARANCE: Not in Acute distress Head: atraumatic. EYES:? EOMI, NOSE: Atraumatic NECK: Trachea midline RESPIRATORY: Diminished breath sound bilaterally clear lung sounds no respiratory distress CARDIOVASCULAR: RRR, 1+ pitting edema lower extremities ABDOMINAL: Non-distended MUSCULOSKELETAl:? patient is wearing a right upper extremity immobilizer NEURO: Alert. Moving 4/4 extremities SKIN:: Warm, dry. Normal color PSYCHIATRIC: Normal affect DS: Data Data Completed and Pending Completed studies during hospitalization: Exam Type: ? ? CA echo doppler color flow Study Info Indications ?? ? - CHF Complete two-dimensional, color flow and Doppler transthoracic echocardiogram is performed. Account #: ? ? [id number] Summary ? 1. Complete two-dimensional, color flow and Doppler transthoracic echocardiogram is performed. ? 2. Left ventricular chamber dimension is normal. ? 3. Left ventricular systolic function is hyperdynamic, estimated at >70%. ? 4. There is mild concentric increased left ventricular wall thickness. ? 5. The left ventricular diastolic function is grade I diastolic dysfunction. ? 6. E/e' 27 is significantly elevated. ? 7. Left atrial c
[2023-12-15] MEDS: ACETAMINOPHEN 325 MG TABLET 650 MG PO (12:55)
== END 2023-12-15 13:45 | disposition home or self-care (01) | DRG 689 ==
LOC: ANHED 06:33 → ANH2MED 14:46 → ANH3MEDSUR 14:46
PROVIDERS: Family Medicine; Admitting Provider Internal Medicine; Emergency Provider Emergency Medicine; PCP Family Medicine; Visit Provider Internal Medicine
DX: N39.0 Urinary tract infection, site not specified (principal); I50.33 Acute on chronic diastolic (congestive) heart failure; B96.20 Unspecified Escherichia coli [E. coli] as the cause of diseases classified elsewhere; S42.201D Unspecified fracture of upper end of right humerus, subsequent encounter for fracture with routine healing; W17.89XD Other fall from one level to another, subsequent encounter; E11.42 Type 2 diabetes mellitus with diabetic polyneuropathy; E11.51 Type 2 diabetes mellitus with diabetic peripheral angiopathy without gangrene; E78.2 Mixed hyperlipidemia; E78.5 Hyperlipidemia, unspecified; E66.9 Obesity, unspecified; I11.0 Hypertensive heart disease with heart failure; I25.10 Atherosclerotic heart disease of native coronary artery without angina pectoris; I08.0 Rheumatic disorders of both mitral and aortic valves; I45.10 Unspecified right bundle-branch block; M17.12 Unilateral primary osteoarthritis, left knee; Z96.611 Presence of right artificial shoulder joint; Z85.3 Personal history of malignant neoplasm of breast; Z87.891 Personal history of nicotine dependence; Z96.659 Presence of unspecified artificial knee joint; Z90.10 Acquired absence of unspecified breast and nipple; Z79.84 Long term (current) use of oral hypoglycemic drugs
CPT/HCPCS: 36415; 71045; 71275; 80048; 80053; 82948; 83605; 83690; 83735; 83880; 84484; 85025; 85610; 85730; 87040; 87077; 87086; 87088; 87186; 87637; 93005; 93306; 93970; 96365; 96372; 96375; 97161; 97165; 99285; A9270; G0378; J0696; J1650; J1815; J1940; Q9967

== ENCOUNTER 2023-12-26 14:02 | Outpatient (CLI) | payer MEDICARE, SELFPAY ==
[2023-12-26 15:16] LABS: Basophils Absolute Auto 0.1 K/mm3 (0.0-0.1); Eosinophils Absolute Auto 0.4 K/mm3 (0-0.3); Eosinophils Percent Auto 5.9 % (0-4.4); Hematocrit 34.1 % (37.0-47.0); Hemoglobin 10.9 g/dL (12.0-15.0); Immature Granulocyte Absolute 0.04 K/mm3 (0.00-0.031); Immature Granulocyte Percent A 0.6 % (0-0.5); Lymphocytes Absolute Auto 1.34 K/mm3 (0.9-3.2); Lymphocytes Percent Auto 19.6 % (18.3-44.2); Mean Corpuscular Hemoglobin 27.9 pg (26-34); Mean Corpuscular Volume 87.2 fl (80-100); Mean Platelet Volume 9.3 fl (7.4-10.4); Monocytes Absolute Auto 0.5 K/mm3 (0.1-0.6); Monocytes Percent Auto 6.9 % (2.6-8.5); Neutrophils Absolute Auto 4.5 K/mm3 (1.3-6.7); Platelet Count Result 344 k/mm3 (150-375); Red Blood Count 3.91 M/mm3 (4.2-5.4); Red Cell Distribution Width 13.7 % (11.5-14.5); White Blood Count 6.8 K/mm3 (4.5-10.0)
[2023-12-26 15:28] LABS: Hemoglobin A1C 7.3 % (<5.7)
[2023-12-26 15:31] LABS: Alanine Aminotransferase 14 U/L (6-35); Albumin Level 3.9 g/dL (3.5-5.1); Alkaline Phosphatase 127 U/L (38-126); Anion Gap 6 mmol/L (4-12); Aspartate Amino Transferase 23 U/L (14-36); Bilirubin,Total 0.7 mg/dL (0.2-1.3); Blood Urea Nitrogen 19 mg/dL (7-17); Calcium 9.2 mg/dL (8.4-10.2); Carbon Dioxide 27 mmol/L (22-30); Chloride 101 mmol/L (98-107); Estimated Glomerular Filt Rate > 60; Glucose 228 mg/dL (65-110); Potassium 4.5 mmol/L (3.4-5.0); Sodium 134 mmol/L (137-145)
== END 2023-12-26 14:03 | disposition home or self-care (01) ==
LOC: ANHLAB 14:03
PROVIDERS: PCP Family Medicine; Visit Provider Family Medicine
DX: I10 Essential (primary) hypertension (principal); E11.9 Type 2 diabetes mellitus without complications
CPT/HCPCS: 36415; 80053; 83036; 85025

== ENCOUNTER 2024-02-17 11:13 | Outpatient (CLI) | payer MEDICARE, SELFPAY ==
[2024-02-17 12:45] LABS: Hematocrit 32.5 % (37.0-47.0)
[2024-02-17 12:57] LABS: Alanine Aminotransferase 16 U/L (6-35); Albumin Level 3.6 g/dL (3.5-5.1); Alkaline Phosphatase 108 U/L (38-126); Anion Gap 7 mmol/L (4-12); Aspartate Amino Transferase 27 U/L (14-36); Bilirubin,Total 0.9 mg/dL (0.2-1.3); Blood Urea Nitrogen 20 mg/dL (7-17); Calcium 8.6 mg/dL (8.4-10.2); Carbon Dioxide 27 mmol/L (22-30); Chloride 99 mmol/L (98-107); Estimated Glomerular Filt Rate 59; Glucose 332 mg/dL (65-110); Potassium 4.3 mmol/L (3.4-5.0); Sodium 133 mmol/L (137-145)
[2024-02-17 13:27] LABS: Hemoglobin A1C 7.5 % (<5.7)
== END 2024-02-17 11:14 | disposition home or self-care (01) ==
LOC: ANHLAB 11:16
PROVIDERS: PCP Family Medicine; Visit Provider Family Medicine
DX: D64.9 Anemia, unspecified (principal); E11.40 Type 2 diabetes mellitus with diabetic neuropathy, unspecified; I10 Essential (primary) hypertension; Z79.4 Long term (current) use of insulin
CPT/HCPCS: 36415; 80053; 83036; 85014; 85018

== ENCOUNTER 2024-11-22 12:49 | Outpatient (CLI) | payer MEDICARE, SELFPAY ==
[2024-11-22 13:41] LABS: Basophils Percent Auto 0.5 % (0.2-1.2); Eosinophils Absolute Auto 0.2 K/mm3 (0-0.3); Eosinophils Percent Auto 2.1 % (0-4.4); Hematocrit 39.2 % (37.0-47.0); Hemoglobin 12.9 g/dL (12.0-15.0); Immature Granulocyte Absolute 0.04 K/mm3 (0.00-0.031); Immature Granulocyte Percent A 0.5 % (0-0.5); Lymphocytes Absolute Auto 1.97 K/mm3 (0.9-3.2); Lymphocytes Percent Auto 24.3 % (18.3-44.2); Mean Corpuscular HGB Conc 32.9 g/dl (32-36); Mean Corpuscular Hemoglobin 28.8 pg (26-34); Mean Corpuscular Volume 87.5 fl (80-100); Mean Platelet Volume 10.1 fl (7.4-10.4); Monocytes Absolute Auto 0.4 K/mm3 (0.1-0.6); Monocytes Percent Auto 5.2 % (2.6-8.5); Neutrophils Absolute Auto 5.5 K/mm3 (1.3-6.7); Neutrophils Percent Auto 67.4 % (45.5-73.1); Platelet Count Result 229 k/mm3 (150-375); Red Blood Count 4.48 M/mm3 (4.2-5.4); Red Cell Distribution Width 12.1 % (11.5-14.5); White Blood Count 8.1 K/mm3 (4.5-10.0)
[2024-11-22 13:54] LABS: Alanine Aminotransferase 14 U/L (6-35); Albumin Level 4.2 g/dL (3.5-5.1); Alkaline Phosphatase 111 U/L (38-126); Anion Gap 9 mmol/L (4-12); Aspartate Amino Transferase 23 U/L (14-36); Bilirubin,Total 1.4 mg/dL (0.2-1.3); Blood Urea Nitrogen 19 mg/dL (7-17); Calcium 9.5 mg/dL (8.4-10.2); Carbon Dioxide 29 mmol/L (22-30); Chloride 100 mmol/L (98-107); Estimated Glomerular Filt Rate > 60; Glucose 216 mg/dL (65-110); Potassium 4.2 mmol/L (3.4-5.0); Sodium 138 mmol/L (137-145)
== END 2024-11-22 12:50 | disposition home or self-care (01) ==
LOC: ANHLAB 12:53
PROVIDERS: PCP Family Medicine; Visit Provider Student in an Organized Health Care Education/Training Program
DX: I10 Essential (primary) hypertension (principal); E11.9 Type 2 diabetes mellitus without complications
CPT/HCPCS: 36415; 80053; 83036; 85025

== ENCOUNTER 2025-01-25 12:43 | Outpatient (CLI) | payer MEDICARE, SELFPAY ==
--- OUTSIDE RECORDS SUMMARY | 2025-01-25 12:59 | XMS_ITS | CONTINUITY OF CARE DOCUMENT ---
Author Name gautam, gautam Address Unknown Organization [facility] Address [address] [place] [address] Phone [phone] Care Team Providers Care Crystallographer Name Role Phone Fly BLUNT, Jose Luis Unavailable MISAEL NIX MD Unavailable MISAEL NIX MD Unavailable PROBLEMS Condition Status Date Provider Notes Leg pain active Jose Luis Bill MD Osteoarthritis active Jose Luis Bill MD Hyperlipidemia active Jose Luis Bill MD Diabetes mellitus active Jose Luis Bill MD Aortic stenosis active Jose Luis Bill MD HTN essential active Jose Luis Bill MD CAD active Jose Luis Bill MD Cardiology examination active Jose Luis Bill MD ENCOUNTERS Date Type Provider Location Encounter Diag nosis - In-person encounter Office Visit Jose Luis Bill MD [facility] - In-person encounter Office Visit Jose Luis Bill MD [facility] Cardiology examinationCADHTN essentialAortic stenosisDiabetes mellitusHyperlipidemiaOsteoarthritisLeg pain VITAL SIGNS Date Observation Value Provider Body Mass Index (Ratio) 31.71 kg/m2 Elizabeth Bill MD blood pressure, cuff size regular Ke rri Fishuenejoyceer blood pressure, diastolic 70 mm[Hg] [facility], systolic 152 mm[Hg] Radha Robincharanbrian oxygen saturation, oximetry 96 % Jany Robincharanbrian respiratory rate E&M 12 /min Jany Bowen shruthijoshcamilla pulse rate 63 /min Jany Perez [facility] weight E&M 157 [lb_av] Jany Perez [facility] height E&M 59 [in_i] Jany Perez [facility] Body Mass Index (Ratio) 32.35 kg/m2 Elizabeth Blil MD blood pressure, diastolic 56 mm[Hg] Destinee nkLogevelina blood pressure, systolic 140 mm[Hg] Jaclyn Gómez blood pressure, diastolic 56 mm[Hg] St pooja May blood pressure, systolic 140 mm[Hg] Sta matt May height E&M 59 [in_i] Margotmatt May weight E&M 160.2 [lb_av] aMrgot May oxygen saturation, oximetry 94 % Margotmatt May pulse rate 65 /min Margotmatt May respiratory rate E&M 18 /min Margot Bain maryjo ALLERGIES No Known Drug Allergies HISTORY OF MEDICATION USE Medication Status Instructions Dates Provider Indications Com ments pravastatin 10 mg tablet active TAKE 1 TABLET BY MOUTH EVERY DAY 1 Joceline Kebede NP pravastatin 10 mg tablet completed TAKE 1 TABLET BY MOUTH DAILY - 1 Joceline Kebede NP clonidine HCl 0.1 mg tablet active 1 tablet by mouth twice a day Joceline Kebede NP hydralazine 50 mg tablet active TAKE ONE AND ONE-HALF TABLETS BY MOUTH TWICE DAILY Joceline Reis U-100 Insulin 100 unit/mL (3 mL) insulin pen completed INJECT 10 UNITS UNDER THE SKIN EVERY MORNING AND INJECT 8 UNITS EVERY EVENING - 1 Joceline Kebede NP pravastatin 10 mg tablet completed TAKE 1 TABLET BY MOUTH DAILY - 1 Joceline Kebede NP amlodipine 5 mg tablet active TAKE ONE TABLET BY MOUTH DAILY Joceline Kebede NP enalapril maleate 20 mg tablet active Take 1 tablet by mouth twice a day Joceline Kebede NP carvedilol 12.5 mg tablet active Take 1 tablet by mouth twice a day Joceline Kebede NP metformin 500 mg tablet active twice a day Joceline Kebede NP SOCIAL HISTORY Date Observation Value Provider smoking, date started 25 Lucia brian Kebede NP smoking history, tot al pack/day 1 Joceline Kebede NP cigarette use yes Jany Raheemnf elder smoking status Former smoker Jany Raheem nfelder drug use no Jose Luis Bill MD alcohol use no Jose Luis Bill MD social history E&M S moking History: John patel is a former smoker. Jose Luis Bill MD social history reviewed E&M revi ewed - no changes required Jose Luis Bill MD cigarette use yes Margot May smoking status Former smoker Margot May FUNCTIONAL STATUS Date Observation Value Provider HRA, CV Assess/Plan, Angina (inactive) Management Plan continue current therapy Joceline Kebede NP INSURANCE PROVIDERS Payer name Policy type / Coverage type [place] [employer] party ID AARP MEDICARE ADVANTAGE HMO-POS HMO [id number] ADVANCE DIRECTIVES Name Date DISCUSSED - NO DECISION MADE TREATMENT PLAN Date Name Performer [id number],B, P t c/o leg pain. In the mornings when she gets up, she has trouble walking. There is pain in her hamstrings. As the days go by, she can walk better. She had dopplers done at [facility]. The TBI of the right leg is 0.42. The ABDELRAHMAN was not able to be done because of failure to compress the arteries of the LE. s/p sensilase--> normal study. pt reports symptoms are improved. do no suspect symptoms are ischemic etiology. pravastatin rx sent to pharmacy. Joceline Phamsyed INIGUEZ [id number],C,P t c/o leg pain. In the mornings when she gets up, she has trouble walking. There is pain in her hamstrings. As the days go by, she can walk better. She had dopplers done at [facility]. The TBI of the right leg is 0.42. The ABDELRAHMAN was not able to be done because of failure to compress the arteries of the LE. Will check a sensilase, however the fact that I can feel palpable dorsalis pedis makes the presence of signifcant PAD low. Jose Luis Bill MD [id number],S, Jose Luis Bill MD [id number],C, B P today: 140/56 Her updated medication list for this problem includes: Clonidine Hcl 0.1 Mg Tablet (Clonidine hcl) Hydralazine 50 Mg Tablet (Hydralazine) Amlodipine 5 Mg Tablet (Amlodipine) Enalapril Maleate 20 Mg Tablet (Enalapril maleate) Carvedilol 12.5 Mg Tablet (Carvedilol) Jose Luis Bill MD [id number],C,P t c/o leg pain. In the mornings when she gets up, she has trouble walking. There is pain in her hamstrings. As the days go by, she can walk better. She had dopplers done at [facility]. The TBI of the right leg is 0.42. The ABDELRAHMAN was not able to be done because of failure to compress the arteries of the LE. Will check a sensilase, however the fact that I can feel palpable doralis pedis makes the signifcance of PAD quite low. Jose Luis Bill MD [id number],S, H er updated medication list for this problem includes: Amlodipine 5 Mg Tablet (Amlodipine) Enalapril Maleate 20 Mg Tablet (Enalapril maleate) Carvedilol 12.5 Mg Tablet (Carvedilol) Jose Luis Bill MD Cardiology: P t c/o leg pain. In the mornings when she gets up, she has trouble walking. There is pain in her hamstrings. As the days go by, she can walk better. She had dopplers done at [facility]. The TBI of the right leg is 0.42. The ABDELRAHMAN was not able to be done because of failure to compress the arteries of the LE. s/p sensilase--> normal study. pt reports symptoms are improved. do no suspect symptoms are ischemic etiology. pravastatin rx sent to pharmacy. Joceline Kebede NP Cardiology:Pt c/o le g pain. In the mornings when she gets up, she has trouble walking. There is pain in her hamstrings. As the days go by, she can walk better. She had dopplers done at [facility]. The TBI of the right leg is 0.42. The ABDELRAHMAN was not able to be done because of failure to compress the arteries of the LE. Will check a sensilase, however the fact that I can feel palpable dorsalis pedis makes the presence of signifcant PAD low. Jose Luis Bill MD Cardiology Jose Luis Bill MD Cardiology: B P today: 140/56 Her updated medication list for this problem includes: Clonidine Hcl 0.1 Mg Tablet (Clonidine hcl) Hydralazine 50 Mg Tablet (Hydralazine) Amlodipine 5 Mg Tablet (Amlodipine) Enalapril Maleate 20 Mg Tablet (Enalapril maleate) Carvedilol 12.5 Mg Tablet (Carvedilol) Jose Luis Bill MD Cardiology:Pt c/o le g pain. In the mornings when she gets up, she has trouble walking. There is pain in her hamstrings. As the days go by, she can walk better. She had dopplers done at [facility]. The TBI of the right leg is 0.42. The ABDELRAHMAN was not able to be done because of failure to compress the arteries of the LE. Will check a sensilase, however the fact that I can feel palpable doralis pedis makes the signifcance of PAD quite low. Jose Luis Bill MD Cardiology: H er updated medication list for this problem includes: Amlodipine 5 Mg Tablet (Amlodipine) Enalapril Maleate 20 Mg Tablet (Enalapril maleate) Carvedilol 12.5 Mg Tablet (Carvedilol) Jose Luis Bill MD Date Name Arterial - SENSILASE HISTORY OF PROCEDURES Procedure Date Procedure Name Provider Procedure Notes S tatus EKG Jose Luis Bill MD completed
--- OUTSIDE RECORDS SUMMARY | 2025-01-25 13:00 | XMS_ITS | Data Portability ---
Author Organization [facility] Now, Main Office Address [address] [place] [address] Care Team Providers Care Diesel Bus Mechanic Name Role Phone DINAH MISAEL Primary Care Provider MISAEL NIX Referring Provider Assessment Encounter Date Assessment Date Assessment LastModified by Organization Details LastModified Time 02/06/2023 02/06/2023 This note is dictated and transcribed by [employer]. Supervisor Garage variances may occur. Despite proofreading, typographical errors may occur. [email or web address] Not available 02/06/2023 14:14:42 Plan of Treatment Reminders Order Date Submit Date Provider Last Modified By Organization Details Last Modified Time Details Appointments None record ed. Lab None record ed. Referral None record ed. Procedures None record ed. Surgeries None record ed. Imaging XR, foot, 3 or more view 023 02/07/20 23 [email or web address] [facility] ([facility] Scheduling), [address] [place], [address], 3 08:09:54 Medication Orders None record ed. Patient TargetsNo targets recorded. Patient InstructionsNo instructions recorded. Reason for Referral None Reported. Results Created Date Observation Date Name Description Value Unit Range Abnormal Flag Note LastModifiedBy Organization Detail LastModifiedTime 02/07/20 23 02/06/2023 XR, foot [facility] [address] [place] [address] Patien t Name: SUNITHA CHILDERS Access ion #: [id number] Sex: F : 1934 Locati on: IND Attend ing Physic bozena: Orderi ng Physic bozena: JOSE FOSTER Exam Date: 1:48 PM Exam Name: XR FOOT RT 3V+ Admitt ing Diagno sis(es ): RADIOL OGY REPORT - FINAL EXAM: XR FOOT RT 3V+ HISTOR Y: bunion COMPAR ANDRE: None. TECHNI QUE: Three views of the right foot were perfor med. FINDIN GS: No acute fractu re or disloc ation are identi fied about the right foot. Osteoa rthrit ic residu als noted at the 2nd throug h 5th PIP and D IP joints with a bipart ite 1st metata rsal medial sesamo id, correl ate for point tender ness. IMPRES TIANA: Page 1 of 2 [facility] Name: SUNITHA CHILDERS Access ion #: [id number] Sex: F : 1934 Exam Date: 023 1:48 PM Exam Name: XR FOOT RT 3V+ Admitt ing Diagno sis(es ): No acute proces s, see above. Create d and electr onical ly signed by: Surinder jaramillo MD Signed Date: 6:19 PM (CT) Dictat ed by: Surinder jaramillo MD DD: 6:19 PM (CT) DT: 6:19 PM (CT) Page 2 of 2 [email or web address] [facility] (Imaging) [address] [place], [address], 02/10/2023 09:22:00 Result Notes None recorded. Problems Name Problem SNOMED Code Status Onset Date Resolution Date Notes Provider Name and Address Organization Details Recorded Time Pain of toe of right foot 2638215527470 01 Active 2022 Jose Varela DPM [address], [address], [address] , [place] [facility] 3 14:14:21 Bunion 713932147 Active 2022 Jose Varela DPM [address], [address], [place], [address] , [place] [facility] 3 14:14:24 Hammer toe 600265013 Active 2022 Jose Varela DPM [address], [address], [place], [address] , [place] [facility] 3 14:14:52 Arthritis 5104014 Active 2022 Any tenorio, [place] [facility] 3 14:19:29 Backache 392697862 Active 2022 Any Howard null, [place] [facility] 3 14:19:41 Neck pain 74866621 Active 2022 Any Howard null, [place] [facility] 3 14:19:47 Malignant tumor of breast 252392977 Active 2022 Any Howard null, [place] [facility] 3 14:19:59 Diabetes mellitus 49856411 Active 2022 Any Howard null, [place] [facility] 3 14:20:06 Ear problem 998685608 Active 2022 Any Howard null, [place] [facility] 3 14:20:14 Disorder of eye 966120758 Active 2022 Any Howard null, [place] [facility] 3 14:20:21 Heart disease 43201350 Active 2022 Any Howard null, [place] [facility] 3 14:20:29 Hyperchole sterolemia 23730281 Active 2022 Any Howard null, [place] [facility] 3 14:20:37 Notes:RADIATION/CHEMOTHERAPY , URINARY/BLADDER/KIDNEY PROBLEMS Problem Notes None recorded. Procedures Surgical History Date Name Laterality Status Provider Name and Address Organization Details Recorded Time 3 Nail Debridement completed Jose Varela DPM [address], [address], [place], [address], [place] [facility] 02/06/2023 14:17:47 Imaging Results Imaging Date Name Status LastModified by Organiz ation Details LastModified Time 02/06/2023 XR, foot completed [email or web address] [facility] (Imaging) [address] [place], [address], 02/10/2023 09:22:00 Procedure Notes None recorded. Medical Equipment None Reported. Medications Name Sig Start Date Stop Date Status Note LastModified by Organization Details LastModified Time metformin 500 mg tablet TAKE 1 TABLET BY MOUTH DAILY active Not Available Not Available No t Available clonidine HCl 0.1 mg tablet TAKE 1 TABLET BY MOUTH EVERY 12 HOURS active Not Available Not Available No t Available carvedilol 12.5 mg tablet TAKE 1 TABLET BY MOUTH EVERY 12 HOURS WITH FOOD active Not Available Not Available No t Available enalapril maleate 20 mg tablet TAKE 1 TABLET BY MOUTH TWICE DAILY active Not Available Not Available No t Available meloxicam 15 mg tablet TAKE 1 TABLET BY MOUTH DAILY active Not Available Not Available No t Available amlodipine 5 mg tablet TAKE 1 TABLET BY MOUTH EVERY DAY AT BEDTIME active Not Available Not Available No t Available meloxicam 7.5 mg tablet TAKE 1 TABLET BY MOUTH TWICE DAILY NEEDED FOR PAIN active Not Available Not Available No t Available pravastatin 10 mg tablet TAKE 1 TABLET BY MOUTH EVERY DAY active Not Available Not Available No t Available trazodone 100 mg tablet TAKE 1 TABLET BY MOUTH EVERY DAY AT BEDTIME NEEDED FOR INSOMNIA active Not Available Not Available No t Available hydralazine 100 mg tablet TAKE 1 TABLET BY MOUTH TWICE DAILY active Not Available Not Available No t Available hydralazine 50 mg tablet TAKE 1 TABLET BY MOUTH TWICE DAILY active Not Available Not Available No t Available furosemide 20 mg tablet TAKE 1 TABLET BY MOUTH EVERY MORNING active Not Available Not Available No t Available PreserVision AREDS active Not Available Not Available Not Available insulin glargine (U-100) 100 unit/mL (3 mL) subcutaneous pen INJECT 10 UNITS UNDER THE SKIN EVERY MORNING AND 8 UNITS EVERY EVENING active Not Available Not Available No t Available Lantus Solostar U-100 Insulin active Not Available Not Available Not Available Prodigy No Coding strips USE TO TEST TWICE DAILY active Not Available Not Available No t Available FreeStyle Telly 2 Sensor kit CHANGE EVERY 14 DAYS active Not Available Not Available No t Available FreeStyle Telly 2 [place] USE DIRECTED active Not Available Not Available No t Available Vitals Date Recorded Heart rate Respiratory rate Oxygen saturation Oxygen saturation in Arterial blood by Pulse oximetry Systolic blood pressure Diastolic blood pressure Provider Name and Address Organization Details Last Updated DateTime 3 54 /min 14 /min 98 % 98 % 157 mm[Hg] 77 mm[Hg] Jeniffer Saxena [facility] 3 14:05:56 Date Recorded Body height Body mass index (BMI) Body weight Provider Name and Address Organization Details Last Updated DateTime 02/06/2023 149.86 cm 31.7 kg/m2 80847 g Any Howard [facility] 02/06/2023 14:19:11 Social History Question Answer Notes LastModified by Organizat ion Details LastModified Time Tobacco Smoking Status Former Smoker Any tenorio [facility] 02/06/2023 14:21:21 What Is Your Level Of Alcohol Consumption? None [email or web address] Information not available 02/06/2023 Sex: Unknown Functional Status None recorded. Mental Status None recorded. Family History Nothing Reported. Medical History Condition Response HEART DISEASE/HEART PROBLEMS Y CANCER: SPECIFY Y ARTHRITIS Y BACK / NECK PROBLEMS Y RADIATION / CHEMOTHERAPY Y HIGH CHOLESTEROL / HYPERLIPIDEMIA Y Gynecological HistoryNo gynecological history recorded. Obstetrics History GPAL:G 0 P 0 0 0 0 Past Encounters Encounter ID Performer Location Encounter Start Date Encounter Closed Date Diagnosis/Indication Diagnosis SNOMED-CT Code Diagnosis ICD10 Code Diagnosis Note [id number] Jose Varela DPM [facility] [place] [address] [facility] [address] [place] [address] 02/06/2023 14:01:05 02/06/2023 14:32:04 Pain of toe of right foot 5469305029 84206 M79.674 Right 2nd toetreatme nt options prettyLi oswaldo continue conservati ve therapy secondary to a Bunion 733198453 M21.61 9 bilateral worse to the rightobtai n x-rays Hammer toe 501692892 M20 .41 right 2nd toe secondary to under riding 1stobtain x-raysDisp ensed-- silicone toe spacer Health Concerns Section Related Observation LastModified by Organization Detai ls LastModified Time None Recorded Concern Status LastModified by Organization Details LastModified Time None Recorded Advance Directives Directive None Recorded Payers Encounter Date Sequence Insurance Name Policy Number Policy Jenkins Covered Member ID Jenkins Member ID Guarantor Name 02/06/2023 1 [facility] (MEDICARE REPLACEMENT/A DVANTAGE - HMO) [id number] Sunitha Miah [id number] Sunitha Miah Notes Date Note Type Note Provider Name and Address Organization Details Recorded Time 02/06/2023 text/html . Patient is 87-year-old female who presents the office with complaints of pain to her right 2nd toe. Patient states that she just started to develop pain in the toe. Patient denies any open wounds or infection. Patient states that she does wear wide shoe gear but states that this has not helped. Patient denies any treatment options for this issue. Patient denies any other complaints. Jose Varela DPM [address] [facility] [address], [place], [address], [facility] 02/06/2023 14:29:40 OBGyn Episode No OBEpisode recorded.
--- OUTSIDE RECORDS SUMMARY | 2025-01-25 13:00 | XMS_ITS | Referral Summary ---
Author Organization [facility] Address [address] [place] [address] Care Team Providers Care Rn Hemodialysis Name Role Phone Alanna Kaufman MD Primary Care Provider Allergies Active Allergy Reactions Criticality Noted Date Comments Pregabalin Swelling Medium Reaction: Swelling, Medications amLODIPine (NORVASC) 5 mg tablet 8 Active PRODIGY NO CODING strip USE TO TEST BID 2 8 Active enalapril (VASOTEC) 20 mg tablet 8 Active LANTUS SOLOSTAR U-100 INSULIN 100 unit/mL (3 mL) insulin pen ADM 14 UNI SC IN THE RAYMOND 3 8 Active PRODIGY TWIST TOP LANCET 28 gauge misc USE TO TEST BID 0 8 Active BD ULTRA-FINE MARY BETH PEN NEEDLE 32 gauge x 5/32 needle 8 Active temazepam (RESTORIL) 15 mg capsuleIndications :Insomnia TK 1 C PO QHS PRN 2 8 Active olopatadine (PATADAY) 0.2 % ophthalmic solutionIndication s:Allergic Conjunctivitis Administer 1 drop into both eyes daily 2.5 mL 11 9 Active Active Problems Problem Noted Date Diagnosed Date Aortic stenosis 01/09/2023 Arteriosclerosis of coronary artery 01/09/2023 Cramps of lower extremity 01/09/2023 Diabetes mellitus 01/09/2023 Hyperlipidemia 01/09/2023 Osteoarthritis 01/09/2023 Essential (primary) hypertension 01/09/2023 Allergic conjunctivitis of both eyes 04/21/2019 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 03/09/2018 Asymmetrical sensorineural hearing loss 09/02/20 17 Benign paroxysmal positional vertigo 07/18/2015 History of malignant neoplasm of breast 03/13/20 15 Cephalalgia 02/14/2015 Arthralgia of hip 12/13/2014 Notalgia 12/13/2014 Diarrhea 12/13/2014 Type 2 diabetes mellitus wit hout complication, with long-term current use of insulin 11/28/2014 Vitamin D deficiency disease 01/03/2014 Hyperparathyroidism 01/03/2014 Hypertension 12/31/2013 Overview (01/01/2018): Impression: At [facility] 8 goals 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 Ecchymosis 11/19/2013 Joint pain 04/26/2013 Osteoarthritis of shoulder 03/05/2013 Inflamed seborrheic keratosis 01/01/2013 Insomnia 12/28/2012 Arthralgia of shoulder 07/03/2012 Memory impairment 01/06/2012 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 Arthritis 01/06/2012 Osteoarthritis of hand 08/01/2011 Head revolving around 12/31/2010 Epidemic vertigo 12/31/2010 Pseudophakia 03/05/2010 Posterior vitreous detachment 03/05/2010 Blepharoptosis 03/05/2010 Urge incontinence of urine 01/29/2008 Resolved Problems Problem Noted Date Diagnosed Date Resolved Date 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 03/10/20 18 Social History Tobacco Use Types Packs/Day Years Used Date Smoking Tobacco: Former Smokeless Tobacco: Former Tobacco Cessation:Counseling Given: Not Answered Comments Unknown Sex and Gender Information Value Date Recorded Sex Assigned at Not on file Legal Sex Female 1:48 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 Gender Identity Not on file Sexual Orientation Not on file Last Filed Vital Signs Vital Sign Reading Time Taken Comments Blood Pressure 146/70 07/18/2015 11:05 AM CDT Pulse 84 01/09/2015 2:26 PM CDT Temperature - - Respiratory Rate - - Oxygen Saturation 97% 01/06/2014 8:18 AM CDT Inhaled Oxygen Concentration - - Weight 78.9 kg (174 lb 0.2 oz) 07/18/2015 11:05 AM CDT Height 152.4 cm (5') 07/18/2015 11:05 AM CDT Body Mass Index 33.98 07/18/2015 11:05 AM CDT Plan of Treatment Not on file Procedures Procedure Name Priority Date/Time Associated Diagnosis Comments SERUM LIPID PANEL Routine 01/04/2014 10: 11 PM CDT from Last 3 Months or Most Recently Relevant to Health Maintenance Results * Serum lipid panel (01/04/2014 10:11 PM CDT) Cholesterol 143 0 - 200 mg/dl HISTORICAL RESULTS Comment: Interpretive Data Desirable: <200 mg/dL Borderline high: 200-239 mg/dL High: >240 mg/dL Literature Reference: National Cholesterol Education Program (NCEP) Expert Panel on Detection, Evaluation, and Treatment of High Blood Cholesterol in Adults (Adult Treatment Panel III). Circulation 2004; 110:227. Current interpretive data was last revised on 2005. Triglycerides 86 0 - 150 mg/dl HISTORICAL RESULTS Comment: Interpretive Data Desirable: < 150 mg/dL Borderline High: 150 - 199 mg/dL High: > 200 mg/dL Literature Reference: See Cholesterol Current interpretive data was last revised on 07. HDL 44 40 - 199 mg/dl HISTORICAL RESULTS Comment: Interpretive Data Less than 40 mg/dL - low; A major risk factor for heart disease. Greater than or equal to 60 mg/dL - High; considered protective of heart disease. Literature Reference: See Cholesterol Current interpretive data was last revised on 2008. LDL 82 0 - 129 mg/dl HISTORICAL RESULTS Comment: Interpretive Data Optimal: < 100 mg/dL Near Optimal: 100 - 129 mg/dL Borderline High: 130 - 159 mg/dL High: > 160 mg/dL Literature Reference: See Cholesterol Current interpretive data was last revised on 07. Non-HDL cholesterol, calculated 99 mg/dl HISTORICAL RESULTS Comment: Interpretive Data When triglycerides are >200 mg/dL, non-HDL C is a secondary target of therapy, with a goal 30 mg/dL higher than the identified LDL-C goal. Reference: See Cholesterol Reference. Current interpretive data was last revised 2012. Serum 01/04/2014 10:1 1 PM CDT Floyd York MD LAB BLOOD ORDERABLES Fi nal Result HISTORICAL RESULTS from Last 3 Months or Most Recently Relevant to Health Maintenance Insurance UHC MEDICARE ADVANTAGE [facility] MEDIC[facility] Address: [address] [address] [place] [address] MEDICARE [facility] MEDICARE [facility] UHC MEDICARE ADVANTAGE [facility]IC[facility] Address: [address] [address] [place] [address] Advance Directives For more information, please contact: [phone] Documents on File Type Date Recorded Patient Clinical Trial Leader Expl anation ADVANCE DIRECTIVE 12/25/2023 4:24 PM Care Teams Rn Hemodialysis Relationship Specialty Start Date End Date Alanna Kaufman MD [address] [facility] [address] [place] [address] PCP - General 01/07/17
--- OUTSIDE RECORDS SUMMARY | 2025-01-25 13:00 | XMS_ITS | Clinical Summary ---
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 (Added by TW Conv) [place] ABDOMINO-VAG VESICAL NCK SSP W/WO NDSC CTRL Abdomino-Vaginal Vesical Neck Suspension - (Added by TW Conv) [place] APPENDECTOMY Appendectomy - (Added by TW Conv) [place] APPENDECTOMY Appendectomy - (Added by TW Conv) CATARACT EXTRACTION Cataract Surgery - Right and left (Added by TW Conv) SHOULDER ARTHROPLASTY Shoulder Arthroplasty - (Added by TW Conv) CATARACT EXTRACTION Medical History Medical History Date Comments Personal history of malignan t neoplasm of breast Adenocarcinoma Of The Breast - (Added by TW Conv) Personal history of arthritis Os teoarthritis - (Added by TW Conv) Personal history of other di seases of the circulatory system History of hypertension - (A dded by TW Conv) Personal history of other en docrine, nutritional and metabolic disease History of diabetes mellitus - (Added by TW Conv) Malignant neoplasm of female breast (HCC) Breast cancer - (Added by TW Conv) Open angle with borderline f indings and low glaucoma risk in both eyes Borderline glaucoma, op en angle with borderline findings, bilateral - (Added by TW Conv) Arthritis Diabetes mellitus (HCC) Cataract Family History Medical History Relation Name Comments Cataracts Father Cancer Mother Cataracts Mother Relation Name Status Comments Father Mother Social History Tobacco Use Types Packs/Day Years Used Date Smoking Tobacco: Former Smokeless Tobacco: Former Tobacco Cessation:Counseling Given: Not Answered Comments Unknown Sex and Gender Information Value Date Recorded Sex Assigned at Not on file Legal Sex Female 1:48 PM [employer] T[employer]ER Gender Identity Not on file Sexual Orientation Not on file Obstetrics History Last Filed Vital Signs Vital Sign Reading [...] 07/18/2015 11:05 AM CDT Plan of Treatment Health Maintenance Due Date Last Done Comments Albumin Creatinine Ratio, Urine 1936 Depression Screening 1936 Fall Risk Assessment 1936 Hemoglobin A1C 1936 eGFR 1936 Foot Exam 1936 DTaP/Tdap/Td Vaccine (1 - Tdap) 1947 Hepatitis B Screening 1954 Pneumococcal vaccine 65+ (1 of 2 - PCV) 1955 Zoster Vaccine (1 of 2) 1986 Well Visit 65+ 2001 Lipid Panel 01/04/2015 01/04/2014 Dilated Eye Exam 02/28/2022 02/28/2021, 11/2019, 04/21/2019, Additional history exists Influenza Vaccine (Season Ended) 2025 Procedures Procedure Name Priority Date/Time Associated Diagnosis [...] 2012. Serum 01/04/2014 10:1 1 PM CDT us Floyd York MD LAB BLOOD ORDERABLES Fi nal Result HISTORICAL RESULTS from Last 3 Months or Most Recently Relevant to Health Maintenance Insurance [facility] MEDIC[facility] [place] [facility] Address: [address] [address] [place] [address] MEDICARE [facility]IC[facility] MEDICARE [facility] [place] [facility] Address: [address] [address] [place] [address] Advance Directives For more information, please contact: [phone] Documents on File Type Date Recorded Patient Coat Room Attendant Expl anation ADVANCE DIRECTIVE 12/25/2023 4:24 PM Care Teams Vice President Of Software Engineering Relationship Specialty Start Date End Date Alanna Kaufman MD [address] [facility] [address] [place] [id number] PCP - General 01/07/17
[2025-01-25 13:23] LABS: Hematocrit 38.1 % (37.0-47.0); Hemoglobin 12.2 g/dL (12.0-15.0); Mean Corpuscular Hemoglobin 28.8 pg (26-34); Mean Corpuscular Volume 89.9 fl (80-100); Mean Platelet Volume 9.7 fl (7.4-10.4); Platelet Count Result 211 k/mm3 (150-375); Red Blood Count 4.24 M/mm3 (4.2-5.4); Red Cell Distribution Width 12.1 % (11.5-14.5); White Blood Count 7.5 K/mm3 (4.5-10.0)
[2025-01-25 13:34] LABS: Alanine Aminotransferase 14 U/L (6-35); Albumin Level 4.4 g/dL (3.5-5.1); Alkaline Phosphatase 110 U/L (38-126); Anion Gap 8 mmol/L (4-12); Aspartate Amino Transferase 23 U/L (14-36); Bilirubin,Total 1.3 mg/dL (0.2-1.3); Blood Urea Nitrogen 20 mg/dL (7-17); Calcium 8.9 mg/dL (8.4-10.2); Carbon Dioxide 29 mmol/L (22-30); Chloride 101 mmol/L (98-107); Estimated Glomerular Filt Rate > 60; Glucose 125 mg/dL (65-110); Potassium 4.5 mmol/L (3.4-5.0); Sodium 138 mmol/L (137-145)
[2025-01-25 13:41] LABS: Hemoglobin A1C 7.6 % (<5.7); Iron 140 ug/dL (37-170)
[2025-01-25 13:54] LABS: Percent Iron Saturation 58 % (20-50)
== END 2025-01-25 12:44 | disposition home or self-care (01) ==
LOC: ANHLAB 12:46
PROVIDERS: PCP Family Medicine; Visit Provider Physician Assistant Medical
DX: E11.40 Type 2 diabetes mellitus with diabetic neuropathy, unspecified (principal); Z79.4 Long term (current) use of insulin; I10 Essential (primary) hypertension; D50.9 Iron deficiency anemia, unspecified
CPT/HCPCS: 36415; 80053; 82728; 83036; 83540; 83550; 85027

== ENCOUNTER 2025-02-28 13:01 | Outpatient (CLI) | payer MEDICARE, SELFPAY ==
--- NOTE | 2025-02-28 13:22 | ECHO_ITS ---
Patient Info Name: Sunitha Dooley Age: 89 years : 1935 Gender: Female Ht: 59 in Wt: 150 lbs BSA: 1.71 m2 HR: 71 bpm BP: 167 / 76 mmHg Technical Quality: Fair Exam Date: 02/28/2025 1:37 PM Patient Status: unknown Admit Date: 02/28/2025 Exam Type: CA echo doppler color flow Complete two-dimensional, color flow and Doppler transthoracic echocardiogram is performed. Research And Development Engineer: Piedad Stroud Attending Provider: Rhett Schuler DO Summary 1. Complete two-dimensional, color flow and Doppler transthoracic echocardiogram is performed. 2. Left ventricular chamber dimension is normal. 3. Left ventricular systolic function is normal, estimated at 65-70. 4. There is mild concentric increased left ventricular wall thickness. 5. The left ventricular diastolic function is grade I diastolic dysfunction. 6. E/e' 15 is elevated. 7. Left atrial chamber dimension is moderately enlarged. 8. There is severe aortic valve sclerosis. 9. There is moderate aortic valve stenosis with a peak velocity of 301 cm/s, mean gradient of 16 mmHg, and aortic valve area of 1.3 cm2. 10. There is mild aortic valve regurgitation. 11. The mitral valve has a mildly calcified annulus. 12. There is mild mitral valve regurgitation. 13. There is no tricuspid valve regurgitation. 14. No pulmonary hypertension, estimated pulmonary arterial systolic pressure is 26 mmHg. Left Ventricle Left ventricular chamber dimension is normal. Left ventricular systolic function is normal, estimated at 65-70. There is mild concentric increased left ventricular wall thickness. The left ventricular diastolic function is grade I diastolic dysfunction. E/e' 15 is elevated. Right Ventricle Right ventricular chamber dimension is normal. Right ventricular systolic function is normal. Left Atria Left atrial chamber dimension is moderately enlarged. Right Atria Right atrial chamber dimension is normal. Aortic Valve The aortic valve is trileaflet. There is severe aortic valve sclerosis. There is moderate aortic valve stenosis with a peak velocity of 301 cm/s, mean gradient of 16 mmHg, and aortic valve area of 1.3 cm2. There is mild aortic valve regurgitation. Pulmonic Valve There is no pulmonic regurgitation. Mitral Valve The mitral valve has a mildly calcified annulus. There is no mitral valve stenosis. There is mild mitral valve regurgitation. Tricuspid Valve There is no tricuspid valve regurgitation. No pulmonary hypertension, estimated pulmonary arterial systolic pressure is 26 mmHg. Pericardium/Pleural There is no pericardial effusion. Inferior Vena Cava Normal inferior vena cava with >50% collapse upon inspiration consistent with normal right atrial pressure, 5 mmHg. Aorta The aortic root size at the sinus of Valsalva is normal. Left Ventricular Outflow Tract Name Value Normal LVOT 2D LVOT Diameter 1.9 cm LVOT Doppler LVOT Peak Velocity 138 cm/s LVOT Peak Gradient 6 mmHg LVOT Mean Gradient 4 mmHg LVOT VTI 29 cm LVOT VTI/AV VTI Ratio 0.5 LVOT Stroke Volume 81 ml LVOT CO 4.6 l/min LVOT CI 2.7 l/min/m2 Pulmonic Valve Name Value Normal RVOT Doppler RVOT Peak Velocity 105 cm/s RVOT Peak Gradient 4 mmHg PV Doppler PV Peak Velocity 105 cm/s PV Peak Gradient 4 mmHg Mitral Valve Name Value Normal MV Doppler MV Peak Gradient 10 mmHg MV Mean Gradient 4 mmHg MV Area (Cont Eq VTI) 1.7 cm2 MV Diastolic Function MV E Peak Velocity 81 cm/s MV A Peak Velocity 157 cm/s MV E/A 0.5 MV Decel Time (PW) 254 ms Tricuspid Valve Name Value Normal TV Regurgitation Doppler TR Peak Velocity 228 cm/s TR Peak Gradient 19 mmHg Estimated PAP/RSVP RA Pressure 5 mmHg <=5 PA Systolic Pressure 26 mmHg <36 RV Systolic Pressure 26 mmHg <36 Aorta Name Value Normal Ascending Aorta Ao Root Diameter (MM) 3.0 cm Ao Root Diam Index (MM) 1.8 cm/m2 Aortic Valve Name Value Normal AV Doppler AV Peak Velocity 301 cm/s AV Peak Gradient 25 mmHg AV Mean Gradient 16 mmHg AV VTI 64 cm AV Area (Cont Eq VTI) 1.3 cm2 >=3.0 AV Area (Cont Eq Claudio) 1.3 cm2 AV DI (Claudio) 0.46 AV Regurgitation 2D LVOT Area 2.8 cm2 Ventricles Name Value Normal LV Dimensions 2D/MM IVS Diastolic Thickness (2D) 1.1 cm 0.6-1.0 LVID Diastole (2D) 3.3 cm 3.8-5.2 LVIW Diastolic Thickness (2D) 1.7 cm 0.6-0.9 LVID Systole (2D) 2.0 cm 2.2-3.5 LVOT Diameter 1.9 cm LV Mass (2D Cubed) 152.27 g 67.00-162.00 LV Mass Index (2D Cubed) 89 g/m2 43-95 Relative Wall Thickness (2D) 1.02 <=0.42 LV Fractional Shortening/Ejection Fraction 2D/MM LV Fractional Shortening (2D) 39 % 27-45 LV EF (2D Teichholz) 70 % LV Diastolic Volume (4C MOD) 49 ml LV EF (4C MOD) 63 % LV Diastolic Volume (2C MOD) 53 ml LV EF (2C MOD) 71 % LV Diastolic Volume (BP MOD) 51 ml 46-106 LV Diastolic Volume Index (BP MOD) 30 ml/m2 29-61 LV Systolic Volume (BP MOD) 18 ml 14-42 LV Systolic Volume Index (BP MOD) 10 ml/m2 8-24 LV EF (BP MOD) 66 % 54-74 LV Diastolic Length (4C) 7.5 cm LV Systolic Length (4C) 5.7 cm LV Stroke Volume (4C MOD) 31 ml Atria Name Value Normal LA Dimensions LA Dimension (MM) 4.0 cm 2.7-3.8 LA Volume (4C A-L) 43 ml LA Volume (BP A-L) 42 ml RA Dimensions RA Systolic Major [place] Length (4C) 4.4 cm 2.2-2.8 RA Area (4C) 10.8 cm2 <=18.0 Report Signatures
--- OUTSIDE RECORDS SUMMARY | 2025-02-28 14:18 | XMS_ITS | CONTINUITY OF CARE DOCUMENT ---
Author Name gautam, gautam Address Unknown Organization [facility] Address [address] [place] [address] Phone [phone] Care Team Providers Care Gang Head Saw Operator Name Role Phone Fly BLUNT, Jose Luis Unavailable [phone] MISAEL NIX MD Unavailable MISAEL NIX MD Unavailable [phone] PROBLEMS Condition Status Date Provider Notes Cardiology examination active Jose Luis Bill MD CAD active Jose Luis Bill MD HTN essential active Jose Luis Bill MD Aortic stenosis active Jose Luis Bill MD Diabetes mellitus active Jose Luis Bill MD Hyperlipidemia active Jose Luis Bill MD Osteoarthritis active Jose Luis Bill MD Leg pain active Jose Luis Bill MD ENCOUNTERS Date Type Provider Location Encounter Diag nosis - In-person encounter Office Visit Jose Luis Bill MD [facility] - In-person encounter Office Visit Jose Luis Bill MD [facility] Cardiology examinationCADHTN essentialAortic stenosisDiabetes mellitusHyperlipidemiaOsteoarthritisLeg pain VITAL SIGNS Date Observation Value Provider Body Mass Index (Ratio) 31.71 kg/m2 Elizabeth Bill MD blood pressure, cuff size regular Ke rri Gruenejoyceer blood pressure, diastolic 70 mm[Hg] Ke rri Gruenenfut [facility] blood pressure, systolic 152 mm[Hg] Radha Robincharanbrian oxygen saturation, oximetry 96 % Jany Robincharanbrian respiratory rate E&M 12 /min Jany Bowen shruthijoshcamilla pulse rate 63 /min Jany Perez [facility] weight E&M 157 [lb_av] Jany Perez [facility] height E&M 59 [in_i] Jany Perez [facility] Body Mass Index (Ratio) 32.35 kg/m2 Elizabeth Bill MD blood pressure, diastolic 56 mm[Hg] Destinee nkLogevelina blood pressure, systolic 140 mm[Hg] Jaclyn Gómez blood pressure, diastolic 56 mm[Hg] St pooja May blood pressure, systolic 140 mm[Hg] Sta matt May height E&M 59 [in_i] Margotmatt May weight E&M 160.2 [lb_av] Margot May oxygen saturation, oximetry 94 % Margotmatt [...] Payer name Policy type / Coverage type Makanda red republican ID AARP MEDICARE ADVANTAGE HMO-POS HMO [id number] ADVANCE DIRECTIVES Name Date DISCUSSED - NO DECISION MADE TREATMENT PLAN Date Name Performer [id number],B, P t c/o leg pain. In the mornings when she gets up, she has trouble walking. There is pain in her hamstrings. As the days go by, she can walk better. She had dopplers done at [facility]. The TBI of the right leg is 0.42. The ABDELRAHMAN was not able to be done because of failure to compress the arteries of the LE. s/p sensilase--> normal study. pt reports symptoms are improved. do no suspect symptoms are ischemic etiology. pravastatin rx sent to pharmacy. Joceline Phamsyed INIGUEZ [id number],C,P t c/o leg pain. In the mornings when she gets up, she has trouble walking. There is pain in her hamstrings. As the days go by, she can walk better. She had dopplers done at [facility]. The TBI of the right leg is 0.42. The ABDELRAHMAN was not able to be done because of failure to compress the arteries of the LE. Will check a sensilase, however the fact that I can feel palpable dorsalis pedis makes the presence of signifcant PAD low. Jose Luis Bill MD [id number],S, Jose Luis Bill MD [id number],C, B P today: 140/56 Her updated medication list for this problem includes: Clonidine Hcl 0.1 Mg Tablet (Clonidine hcl) Hydralazine 50 Mg Tablet (Hydralazine) Amlodipine 5 Mg Tablet (Amlodipine) Enalapril Maleate 20 Mg Tablet (Enalapril maleate) Carvedilol 12.5 Mg Tablet (Carvedilol) Jose Luis Bill MD [id number],C,P t c/o leg pain. In the mornings when she gets up, she has trouble walking. There is pain in her hamstrings. As the days go by, she can walk better. She had dopplers done at [facility]. The TBI of the right leg is 0.42. The ABDELRAHMAN was not able to be done because of failure to compress the arteries of the LE. Will check a sensilase, however the fact that I can feel palpable doralis pedis makes the signifcance of PAD quite low. Jose Luis Bill MD [id number],S, H er updated medication list for this [...] walk better. She had dopplers done at [facility]. The TBI of the right leg is [...] walk better. She had dopplers done at [facility]. The TBI of the right leg is [...] walk better. She had dopplers done at [facility]. The TBI of the right leg is [...]
--- OUTSIDE RECORDS SUMMARY | 2025-02-28 14:19 | XMS_ITS | Data Portability ---
Author Organization [facility] [place], Main Office Address [address] [place] [address] Care Team Providers Care Facilities Clerk Name Role Phone DINAH MISAEL Primary Care Provider MISAEL NIX Referring Provider Assessment Encounter Date Assessment Date Assessment LastModified by Organization Details LastModified Time 02/06/2023 02/06/2023 This note is dictated and transcribed by [employer]. Commercial Helicopter Pilot variances may occur. Despite proofreading, typographical errors may occur. [email or web address] Not available 02/06/2023 14:14:42 Plan of Treatment Reminders Order Date Submit Date Provider Last Modified By Organization Details Last Modified Time Details Appointments None record ed. Lab None record ed. Referral None record ed. Procedures None record ed. Surgeries None record ed. Imaging XR, foot, 3 or more view 023 02/07/20 23 [email or web address] [facility] ([facility]), [address] [place], [address], 3 08:09:54 Medication Orders None record ed. Patient TargetsNo targets recorded. Patient InstructionsNo instructions recorded. Reason for Referral None Reported. Results Created Date Observation Date Name Description Value Unit Range Abnormal Flag Note LastModifiedBy Organization Detail LastModifiedTime 02/07/20 23 02/06/2023 XR, foot [facility] [address] [place] [address] Patien t Name: TANVIR CHILDERS Access ion #: [id number] Sex: F : 1934 Locati on: IND Attend ing Physic bozena: Orderi ng Physic bozena: FLYNN FOSTER Exam Date: 1:48 PM Exam Name: [...] ness. IMPRES TIANA: Page 1 of 2 [facility] Name: TANVIR CHILDERS Access ion #: [id number] Sex: F : 1934 Exam Date: 023 1:48 PM Exam Name: XR FOOT RT 3V+ Admitt ing Diagno sis(es ): No acute proces s, see above. Create d and electr onical ly signed by: Surinder jaramillo MD Signed Date: 6:19 PM (CT) Dictat ed by: Surinder jaramillo MD DD: 6:19 PM (CT) DT: 6:19 PM (CT) Page 2 of 2 [email or web address] [facility] (Imaging) [address] [place], [address], 02/10/2023 09:22:00 Result Notes None recorded. Problems Name Problem SNOMED Code Status Onset Date Resolution Date Notes Provider Name and Address Organization Details Recorded Time Pain of toe of right foot 3339095143555 01 Active 2022 Flynn Varela DPM [address], [address], [address] , [place] [facility] 3 14:14:21 Bunion 780850814 Active 2022 Flynn Varela DPM [address], [address], [place], [address] , [place] [facility] 3 14:14:24 Hammer toe 016969845 Active 2022 Flynn Varela DPM [address], [address], [place], [address] , [place] [facility] 3 14:14:52 Arthritis 0263522 Active 2022 Any tenorio, [place] [facility] 3 14:19:29 Backache 688481919 Active 2022 Any Howard null, [place] [facility] 3 14:19:41 Neck pain 46381869 Active 2022 Any Howard null, [place] [facility] 3 14:19:47 Malignant tumor of breast 170718414 Active 2022 Any Howard null, [place] [facility] 3 14:19:59 Diabetes mellitus 44688498 Active 2022 Any Howard null, [place] [facility] 3 14:20:06 Ear problem 098804097 Active 2022 Any Howard null, [place] [facility] 3 14:20:14 Disorder of eye 525123791 Active 2022 Any Howard null, [place] [facility] 3 14:20:21 Heart disease 00768921 Active 2022 Any Howard null, [place] [facility] 3 14:20:29 Hyperchole sterolemia 75643172 Active 2022 Any Howard null, [place] [facility] 3 14:20:37 Notes:RADIATION/CHEMOTHERAPY , URINARY/BLADDER/KIDNEY PROBLEMS Problem Notes None recorded. Procedures Surgical History Date Name Laterality Status Provider Name and Address Organization Details Recorded Time 3 Nail Debridement completed Flynn Varela DPM [address], [address], [place], [address], [place] [facility] 02/06/2023 14:17:47 Imaging Results None recorded. Procedure Notes None recorded. Medical Equipment None [...] Available No t Available [employer] [address] [place] USE DIRECTED active Not Available Not Available No t Available Vitals Date Recorded Body height Body mass index (BMI) Body weight Provider Name and Address Organization Details Last Updated DateTime 02/06/2023 149.86 cm 31.7 kg/m2 18781 g Any Howard [facility] [employer] [facility] 02/06/2023 14:19:11 Date Recorded Heart rate Respiratory rate Oxygen saturation Oxygen saturation in Arterial blood by Pulse oximetry Systolic blood pressure Diastolic blood pressure Provider Name and Address Organization Details Last Updated DateTime 3 54 /min 14 /min 98 % 98 % 157 mm[Hg] 77 mm[Hg] Jeniffer Saxena [facility] [employer] [facility] 3 14:05:56 Social History None recorded. Functional Status Question Answer Note LastModified by Organization D etails LastModified Time What is your level of alcohol consumption? None [email or web address] Information not available 02/06/2023 Mental Status None recorded. Family History Nothing [...] SNOMED-CT Code Diagnosis ICD10 Code Diagnosis Note 230229 Flynn Varela DPM [facility] [place] [address] [place] [address] 02/06/2023 14:01:05 02/06/2023 14:32:04 Pain of toe of right foot 4535306776 92963 M79.674 Right 2nd toetreatme nt options reviewedLi oswaldo continue conservati ve therapy secondary to a Bunion 281890025 M21.61 9 bilateral worse to the rightobtai n x-rays Hammer toe 413491292 M20 .41 right 2nd toe secondary to [...] Jenkins Member ID Guarantor Name 02/06/2023 1 [facility] (MEDICARE REPLACEMENT/A DVANTAGE - HMO) [id number] Tanvir Dooley [id number] Tanvir Dooley Notes Date Note Type Note Provider Name [...] this issue. Patient denies any other complaints. Flynn Varela DPM [address] [facility] [address] [facility] [address], [place], [address], [place] [facility] 02/06/2023 14:29:40 OBGyn Episode No OBEpisode recorded.
--- OUTSIDE RECORDS SUMMARY | 2025-02-28 14:19 | XMS_ITS | Clinical Summary ---
Author Organization [facility] Address [address] [place] [address] Care Team Providers Care Legal Billing Specialist Name Role Phone Alanna Kaufman MD Primary [...] 18 Surgical History Surgery Date Site/Laterality Comments OR EXC CYST/ABERRANT BREAST TISSUE OPEN 1/> LESION Breast Surgery Lumpectomy - 1996. 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 Gender Identity Not on file Sexual Orientation [...] Most Recently Relevant to Health Maintenance Insurance [facility] MEDICARE ADVANTAGE MEDICARE [facility] MEDICARE [facility] MEDIC[employer] ADVANTAGE Advance Directives For more information, please contact: [phone] Documents on File Type Date Recorded Patient Hospital Television Rental Clerk Expl anation ADVANCE DIRECTIVE 12/25/2023 4:24 PM Care Teams Legal Billing Specialist Relationship Specialty Start Date End Date Alanna Kaufman MD [address] [facility] [address] [place] [id number] PCP - General 01/07/17
--- OUTSIDE RECORDS SUMMARY | 2025-02-28 14:19 | XMS_ITS | Referral Summary ---
Author Organization 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 Gender Identity Not on file Sexual Orientation [...] to Health Maintenance Insurance [employer] MEDICARE ADVANTAGE [facility] MED[facility] Address: [address] [address] [place] [address] MEDICARE [facility] MEDICARE [facility] UHC MEDICARE ADVANTAGE [facility]ICAL [facility] MEDICARE Address: [address] [address] [place] [address] Advance Directives For more information, please contact: [phone] Documents on File Type Date Recorded Patient Real Estate Closer Expl anation ADVANCE DIRECTIVE 12/25/2023 4:24 PM Care Teams Roll Shop Supervisor Relationship Specialty Start Date End Date Alanna Kaufman MD [address] [facility] [address] [place] [address] PCP - General 01/07/17
== END 2025-02-28 13:02 | disposition home or self-care (01) ==
PROVIDERS: PCP Family Medicine; Visit Provider Internal Medicine Cardiovascular Disease
DX: I35.0 Nonrheumatic aortic (valve) stenosis (principal); I35.8 Other nonrheumatic aortic valve disorders; I08.3 Combined rheumatic disorders of mitral, aortic and tricuspid valves
CPT/HCPCS: 93306